=== PATIENT | male | born 1980 | race Two or more races ===

== ENCOUNTER 2024-09-13 09:52 | Day surgery (SDC) | payer OTHER, SELFPAY ==
--- OUTSIDE RECORDS SUMMARY | 2024-09-09 13:10 | XMS_ITS ---
Author Name [facility] [place] [facility] [place] Address [address] [place] [address] Care Team Providers Care Gluer And Slicer Hand Name Role Phone SHIRLEY VILLA Primary Care Provider Unavailabl neida Insurance Providers: All historical and current Section Date Range: From patient's date of to the date document was created. This section includes the names of all active insurance providers for the patient. Insurance Provider Type of Coverage Plan Name Start of Policy Coverage End of Policy Coverage Group Number Member ID Insurance Provider's Telephone Number Policy Pagan's Name Patient's Relationship to Policy Pagan Selected Encounter This section includes the information on record at [place] for the Encounter. Date/Time Encounter Type Encounter Description Reason Provider Source Mar 08, 2024 10:30 AM PSYTX W PT W E/M 30 [facility] - IND ICD-10-CM F90.9 Attention-deficit hyperactivity disorder, unspecified type SAKINA MORFIN E Encounter Template Text not used by [place] Assessments - Encounter Diagnoses This section includes the primary and secondary diagnoses documented for the Encounter. Date/Time Primary/Secondary Diagnosis Diagnosis Name Provider Source Mar 08, 2024 09:29 AM PRIMARY Attention-deficit hyperactivity disorder, unspecified type SAKINA MORFIN [place] [facility] [place] [facility] Mar 08, 2024 09:29 AM SECONDARY Post-traumatic stress disorder, chronic [place]AKINA [place]ORFIN [place] [facility] Plan of Treatment: Future Appointments (+ 6 months) and Future Tests (+/- 45 days) The Plan of Treatment section includes future care activities for the patient [facility] [place] [facility] This section includes future appointments and future orders which are active, pending or scheduled. Future Appointments This section includes appointments that were scheduled to occur 6 months from the date of the Encounter, up to a maximum of 20 appointments. The data comes from all [facility]. Appointment Date/Time Appointment Type Appointme nt Facility Name Mar 15, 2024 10:30 AM [facility] [place] [facility] Apr 07, 2024 11:30 AM [facility] [place] [facility] May 05, 2024 01:30 PM [facility] [place] [facility] May 31, 2024 09:30 AM [facility] [place] [facility] Jun 03, 2024 10:40 AM [facility] Jun 14, 2024 03:00 PM AMBULATORY - RE[facility]AB MEDICIN [facility] [place] [facility] Jun 24, 2024 09:00 AM AMBULATORY [facility] [place] [facility] Aug 05, 2024 09:00 AM AMBULATORY [facility] [place] [facility] Aug 11, 2024 01:00 PM AMBULATORY - [facility] [place] [facility] Aug 16, 2024 09:00 AM [facility] Active, Pending, and Scheduled Orders This section includes a listing of several types of active, pending, and scheduled orders, including clinic medications orders, diagnostic test orders, procedure orders and consult orders; where the start date of the order is 45 days before the date of the Encounter or 45 days after the date of theEncounter. The data comes from all [facility]. Test Date/Time Test Type Test Details Facility Name Apr 07, 2024 12:00 AM Laboratory - Chemistry Order ALCOHOL, ETHYL URINE PANEL URINE (DRUG) SP [facility] Apr 07, 2024 12:00 AM Laboratory - Chemistry Order AMPHETAMINES SCREEN PANEL URINE (DRUG) [facility] [place] [facility] Apr 07, 2024 12:00 AM Laboratory - Chemistry Order BENZODIAZEPINES SCREEN PANEL URINE (DRUG) SP [facility] [place] [facility] Apr 07, 2024 12:00 AM Laboratory - Chemistry Order CANNABINOIDS SCREEN PANEL URINE (DRUG) SP [facility] [place] [facility] Apr 07, 2024 12:00 AM Laboratory - Chemistry Order COCAINE SCREEN PANEL URINE (DRUG) SP [facility] [place] [facility] Apr 07, 2024 12:00 AM Laboratory - Chemistry Order FENTANYL SCREEN PANEL URINE (DRUG) SP [facility] [place] [facility] Apr 07, 2024 12:00 AM Laboratory - Chemistry Order OPIATES SCREEN PANEL URINE (DRUG) [facility] [place] [facility] Social History: Smoking Status (Most current) and Tobacco Use (All prior to encounter date) This section includes the most current, and the historical, smoking and tobacco- related health factors from the [place] facility where the Encounter took place. Current Smoking Status This section includes the most current smoking, or tobacco-related health factor, from the [place] facility where the Encounter took place. Date/Time Current Smoking Status Comment Alf ity Jun 11, 2023 03:00 PM VA-TOBACCO NEVER USED [facility] [place] [facility] Tobacco Use History This section includes a history of the smoking, or tobacco-related health factors, that were collected on or before the date of the Encounter. The data comes from the [place] facility where the Encounter took place. Date/Time Smoking Status/Tobacco Use Comment F acility Jul 11, 2022 11:30 AM VA-TOBACCO NEVER USED [facility] [place] [facility] Jul 26, 2021 08:30 AM VA-TOBACCO NEVER USED [facility] [place] [facility] Aug 22, 2020 08:30 AM VA-TOBACCO NEVER USED [facility] [place] [facility] Sep 01, 2019 02:50 PM VA-TOBACCO NEVER USED [facility] [place] [facility] Sep 04, 2018 12:13 PM VA-TOBACCO NEVER USED [facility] [place] [facility] Sep 11, 2017 09:16 AM LIFETIME NON-TOBACCO USER [place] [facility] [place] [facility] Jul 26, 2016 08:58 AM LIFETIME NON-TOBACCO USER [place] [facility] [place] [facility] Jul 26, 2015 02:07 PM LIFETIME NON-TOBACCO USER [place] [facility] [place] [facility] Jun 15, 2014 02:12 PM LIFETIME NON-TOBACCO USER [place] [facility] [place] [facility] Encounter Notes: All associated encounter notes This section contains the clinical notes associated to the Encounter. Date/Time Encounter Note(s) Provider Source Mar 08, 2024 09:31 AM CLINICAL NURSE SPECIALIST NOTE: LOCAL TITLE: CLINICAL NURSE SPECIALIST/MENTAL HEALTH STANDARD TITLE: CLINICAL NURSE SPECIALIST NOTE DATE OF NOTE: MAR 08, 2024@09:31 ENTRY DATE: MAR 08, 2024@09:31:30 AUTHOR: JANNA MORFIN EXP COSIGNER: URGENCY: STATUS: COMPLETED KORINA JONES, a 44year old WHITE MALE was seen by video today for a scheduled follow-up at [facility] for Dx: PTSD, ADHD. is well known to teletypewriter operator by sight and two identifiers used and full SSN. Visit lasted 30 minutes. He is well known to teletypewriter operator by sight. Active problems - Computerized Problem List is the source for the followin. Pain in left knee 2. Low back pain 3. Tinnitus 4. Alcohol dependence 5. Erectile dysfunction 6. Posttraumatic stress disorder 7. Attention deficit without hyperactivity CHART REVIEW: Paty is a patient of Dr. Alessio DAS 8 and is followed by the respiratory department for sleep apnea. Had medical appt in August got more help with his medical issues from medical rehab. He is still working with the sleep apnea machine to sleep better, also has nasal spray to help him sleep which is working. Sleep apnea remains troublesome at times. He is going to get a mouthguard to try instead. PAST PSYCHIATRIC HISTORY: long history of PTSD, see previous notes from [employer] and previous providers. Paty had outside provider for a long time, has now consolidated his care to all [place]. Paty did some IREST in the past and enjoyed, he was referred for mindfulness treatment but stated there was miscommunication and he was not able to join the group. He has since declined more therapy. Continues using his own [employer] videos and is using music as his therapy. He does this daily and it is a routine that helps him cope. PAST MEDICATION TRIALS: [place] was on amphetamines from outside physician for many years for ADHD. We have consolidated care to [facility]. He continues agreeable to antidepressant and prazosin for nightmares. Doing well with no complaint of side effects or other med issues. STRENGTHS: articulate and takes interest in his health : [employer] FROM Apr TO Mar SUBJECTIVE: The [place] was seen today for routine follow up; visit lasted for 30 minutes. reports continuing to do well with amphetamines, no side effects endorsed, we had to increase his dose a bit several months ago due to the change in brands by pharmacy, but we reverted back to [place] pharmacy due to his having trouble getting meds locally also. We increased his dose slightly and he has done well with the increase. Other meds continue to work well with no side effects per [place]. Mr. Jones states he continues dealing with some PTSD symptoms but still declines any new therapy or meds. He continues using his own mindfulness techniques that he aquired online and in IREST which was his favored type of therapy. 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 CPAP and nasal spray continue somewhat helpful with night breathing, however CPAP is very difficult, and he often cannot use it. Respiratory has been actively working with him, but this continues problematic. He still gets only about 4 hours sleep, due to nightmares that wake him up. This is an ongoing and chronic issue and he prefers to continue same meds,and still does not want to add any more medications to address these symptoms. He has accomodated to the sleep pattern and can function well in spite of decreased hours of sleep. We again checked in to see if he wanted new meds or therapy options and he said he is stable and feels able to meet daily demands. Continues taking care of family. 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 States family are all doing well. CURRENT SYMPTOMS CAUSING CONCERN TO : PTSD and medical issues CURRENT STRESSORS/LIFE CIRCUMSTANCES: less stressors, feels better with some use of MM. REVIEW OF SYSTEMS: SLEEP: some significant impairment at times, nightmares keep him up, uses cpap which is sometimes difficult for him to use. Respiratory has been monitoring and trying to help. He is going to try a mouthguard when available and has upcoming appts. MOOD: minimal depressed mood reported, using his coping tools and he feels stable. PTSD: Nightmares, flashbacks, intrusive memories. avoidance: gets those at times , med helps ANXIETY: 5-6 average ANGER/IRRITABILITY/AGGRESSI ON: minimal now, able to cope well SUICIDAL MOOD/IDEAS: none SUBSTANCE USE: use of alcohol or illegal/non-prescribed drugs: continues using minimal alcohol one glass of wine a day, four or five times a week TOBACCO:non smoker. ALIVIA/HYPOMANIA: None. PSYCHOTIC FEATURES: None. ALCOHOL OR DRUG USE: >4x/wk maintains at same level and has not increased. OVERALL CHANGE SINCE LAST VISIT: he reports coping well, stable DEGREE OF IMPAIRMENT OF DAILY FUNCTION: minimal impairment in spite of health issues, he anisha well. MEDICATION RECONCILIATION: pt on no new/ non-VA prescribed medications or herbal treatments. He went to see a medical marijuana specialist and gave him gummies, which he feels are helpful to him. Current meds: Active and Recently Outpatient Medications (excluding Supplies): Active Outpatient Medications Status 1) BUPROPION HCL 100MG TAB TAKE ONE AND ONE-HALF TABLETS ACTIVE BY MOUTH TWICE DAILY FOR DEPRESSION (TAKE SECOND DOSE BY 5PM) 2) DEXTROAMPHETAMINE SO4 10MG SA CAP TAKE TWO CAPSULES ACTIVE BY MOUTH ONCE DAILY FOR 30 DAYS, AND TAKE ONE CAPSULE ONCE DAILY FOR 30 DAYS DIRECTED IN THE AFTERNOON FOR ADHD AND FOCUS TAKE 2 CAPSULES IN THE MORNING AND 1 CAPSULE IN THE AFTERNOON (NEXT FILL 10/17/20) 3) PRAZOSIN HCL 2MG CAP TAKE ONE CAPSULE BY MOUTH AT ACTIVE BEDTIME FOR NIGHTMARES; WATCH FOR LIGHT HEADEDNESS WHEN GETTING UP 4) SILDENAFIL CITRATE 50MG TAB TAKE ONE TABLET BY MOUTH ACTIVE ONCE A WEEK TAKE 1 HOUR PRIOR TO SEXUAL ACTIVITY DO NOT TAKE WITHIN 12 HOURS OF TAKING PRAZOSIN MEDICATION ADHERENCE: takes medications most days MEDICATION SIDE EFFECTS: none OBJECTIVE: recent labs:LAB RESULTS LAST 1440 HRS - NONE FOUND Weight: 204.4 lb [92.9 kg] (05/25/2019 15:27) BMI: 31.1 MENTAL STATUS EXAM: Orientation and Consciousness: Alert and fully oriented. Appearance and Behavior: Pleasant. Cooperative. Seen via [facility] and then [place] to pickling tank operator script. Has good hygiene and grooming. Is presenting from outside, walking in the sun and states he is enjoying the weather and feeling positive. States he is working today and is in uniform. Presents calm and focused today. Eye Contact: Good. Speech: Normal rate and volume. Mood/Affect: is in a calm mood today, able to relate easily and answer all questions. Smiles and interacts well with teletypewriter operator. Thought Production/Content: Logical, sequential & relevant to discussion. Perceptual Disturbances: None. Attention, concentration and memory based on answers to session questions: Good. Insight/Judgment: Both good. Ability to Provide informed consent: Yes. ASSESSMENT:44 year old WHITE MALE, presents today outside his office walking around in the grass, appearing in good contact, relevant and comfortable. Wears weather appropriate outfit of bland uniform shirt and bland slacks. He is smiling and interacting well. Vet is well known to teletypewriter operator by sight and visit lasted 30 minutes. Paty endorses no med side effects of meds are present and he wants to continue same meds, he states understanding of the risks and benefits of all meds and wants to continue. Since [place] meds were not working as well, we had to increase to a high dose recently, but he denies side effects, chest pain or any other issue with the current amphetamines. Patient ed is reinforced and he states understanding and agreement. He is reminded not to share or give any of his meds to others and to store safely and away from children's access. No reported no drug use and continues with four or five isadora per week, ongoing, which is his usual alcohol amount. Continues to state that his amount of alcohol is not an issue for him, he feels better when he drinks less, per his report. Paty endorses feeling stable on antidepressant and current sleep med, plus amphetamine. He continues to decline conventional therapy for MH. Is reminded of resources available to him both at [place] and at [facility]. Also reminded of [facility] if any urgent needs arise, and he states understanding. No new medical or mental health concerns today. He had a PACT appointment and met his new PCP. States things overall are stable, medical issues are receiving help and he has family supports in place. Paty now appears (x)stable psychiatrically ()unstable psychiatrically i. Severity of Illness: ()none (x)mild ()moderately ill ()severely ill ()very severely ill ii. Global Improvement: ()very much ()much (x)min ()none ()min worse ()much worse ()very much worse iii. Current risk of harm: ()none (x)low ()mod ()high TREATMENT PLAN/ DISCUSSION/ RATIONALE: 1. doing well on current medications, no side effects or other issues endorsed. Wants to continue same regime. All meds from this [facility] currently. Refills by [facility] now and he is doing well with that modality no. He has learned how to use the esperanza and continues using that. 3. Reminded of [facility] if urgent needs, and Crisis Line, new number for [place]'s emergency help. Also reminded to use ER or if emergency. He agrees. 4. Offered therapy if he needs it, continues to prefer apps online and he has one he continues to use daily for mindfulness. Continues doing online yoga and meditation. 5. Sleep is still an issue, but he feels he is getting enough sleep to engage in daily activities and work. Continues pursuing options to get better results for his sleep apnea. He continues using nasal spray with some effect to help his night breathing. He will be investigating a mouth guard and has appts already. 7. Nightmares still bother him at times, but he feels he is doing well given his PTSD, he has been offered nightmare therapy, so far did not want to try this. 8. [place] continues doing light exercise, pain has lessened and he can do more. He likes to exercise and stay as fit as possible. 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 9. Labs reviewed briefly, he is aware of the results and all are WNL.. 10. Vet is aware of his upcoming dental appts and plans to attend. 11. Problem List was reviewed today. Next Visit: in one month. However, I asked the patient to call me or to come to return for sooner appointment if the patient does not like the effect of psychiatric medication or if has side effects with psychiatric medication. LAB REVIEW: ()none/not applicable (x)discussed lab results, no change in plan, last UDS and screening labs were fine aside from very small spike in cholesterol, he is aware. ()discussed lab results, in particular: PATIENT EDUCATION/ INFORMED CONSENT:()not required, no new changes (x)Discussion was held with patient as to risks/ benefits/ hazards of this regimen, as well as alternatives available. The patient appeared able to understand this information and accepted the risks involved. CRISIS PLAN: The patient denied suicidal and violent ideation, but the [facility] information and number were given to patient. The patient also understands to call 911 or to go to ER in the event of an emergency. Medication Reconciliation: Outpatient: Has the patient been taking medications as documented in the EMLR? YES: The patient has been taking medications as documented in the EMLR. Essential Medication List for Review used to complete this medication reconciliation. INCLUDED IN THIS LIST: Alphabetical list of active outpatient prescriptions dispensed from this [facility] (local) and dispensed from another [place] or DoD facility (remote) as well as inpatient orders (local, pending and active), local clinic medications, locally documented non-VA medications, and local prescriptions that have or been discontinued in the past 90 days. - All changes in medications, including all non-VA/Herbal/OTC medications were entered into CPRS. - If there were any medications the patient should no longer take, they were discontinued. - The patient/caregiver was instructed to update this list, discard old lists, and take this list to the next appointment, whether with a VA or non-VA provider. Sexual Orientation: The patient thinks of their sexual orientation as: Straight or Heterosexual /kwadwo/ JANNA MORFIN RN,MSN,PSYCH N.P., STAFF CLINICAL NURSE SPECIALIST Signed: 03/08/2024 16:12 JANNA MORFIN [facility] Mar 08, 2024 09:28 AM ACCOUNTING OF DISCLOSURES NOTE: LOCAL TITLE: STATE PRESCRIPTION DRUG MONITORING PROGRAM STANDARD TITLE: ACCOUNTING OF DISCLOSURES NOTE DATE OF NOTE: MAR 08, 2024@09:28:03 ENTRY DATE: MAR 08, 2024@09:28:03 AUTHOR: JANNA MORFIN EXP COSIGNER: URGENCY: STATUS: COMPLETED This PDMP query was submitted by Janna Morfin [facility]. The clinical justification for this PDMP query is to review controlled substances prescribed outside of the [facility], and any additional information that may become available, as an important component of standard clinical care, and in accordance with [facility] policy. Patient information was shared with the PDMP [place]. Prescription(s) filled outside the VA in the last 90 days are noted. However, they do not raise significant safety concerns and do not influence the treatment plan at this time. uses testosterone from the community ongoing /kwadwo/ JANNA MORFIN RN,MSN,PSYCH N.P., STAFF CLINICAL NURSE SPECIALIST Signed: 03/08/2024 09:29 JANNA MORFIN [facility]
--- OUTSIDE RECORDS SUMMARY | 2024-09-09 13:10 | XMS_ITS ---
Author Name [facility] Organization [facility] Address [address] [place] [address] Care Team Providers Care System Safety Engineer Name Role Phone SHIRLEY VILLA Primary Care [...] section includes the information on record at [place] for the Encounter. Date/Time Encounter Type Encounter Description Reason Provider Source Nov 06, 2023 10:30 AM PSYTX W PT W E/M 30 [facility] - IND ICD-10-CM F43.12 Post-traumatic stress disorder, chronic NAVJOTRENETTAEL A Stella IHE Encounter Template Text not used by [place] Assessments - Encounter Diagnoses This section includes the primary and secondary diagnoses documented for the Encounter. Date/Time Primary/Secondary Diagnosis Diagnosis Name Provider Source Nov 06, 2023 12:13 PM PRIMARY Post-traumatic stress disorder, chronic NAVJOT,SAKINA LA B [facility] [place] [facility] Nov 06, 2023 12:13 PM SECONDARY Attention-deficit hyperactivity disorder, unspecified type NAVJOT,SAKINA LA B [facility] [place] [facility] Plan of Treatment: Future Appointments (+ 6 months) and Future Tests (+/- 45 days) The Plan of Treatment section includes future care activities for the [facility] This section includes future appointments and future orders which are active, pending or scheduled. Future Appointments This section includes appointments that were scheduled to occur 6 months from the date of the Encounter, up to a maximum of 20 appointments. The data comes from all [facility]. Appointment Date/Time Appointment Type Appointme nt Facility Name Dec 03, 2023 10:30 AM AMBULATORY - PSYCHIATRY [facility] [place] [facility] Dec 10, 2023 11:00 AM AMBULATORY - PSYCHIATRY [facility] [place] [facility] Dec 24, 2023 03:00 PM AMBULATORY - MEDICINE PR [facility] [place] [facility] Dec 31, 2023 01:00 PM AMBULATORY - PSYCHIATRY [facility] [place] [facility] Feb 09, 2024 10:30 AM AMBULATORY - PSYCHIATRY [facility] [place] [facility] Mar 08, 2024 10:30 AM AMBULATORY - PSYCHIATRY [facility] [place] [facility] Mar 15, 2024 10:30 AM AMBULATORY - NONE [facility] [place] [facility] Apr 07, 2024 11:30 AM AMBULATORY - PSYCHIATRY [facility] [place] [facility] May 05, 2024 01:30 PM [facility] Active, Pending, and Scheduled Orders This section includes a listing of several types of active, pending, and scheduled orders, including clinic medications orders, diagnostic test orders, procedure orders and consult orders; where the start date of the order is 45 days before the date of the Encounter or 45 days after the date of theEncounter. The data comes from all [facility]. Test Date/Time Test Type Test Details Facility Name Dec 16, 2023 07:00 AM Laboratory - Chemistry Order [facility] [place] [facility] Dec 16, 2023 07:00 AM Laboratory - Chemistry Order [facility]ENTANYL [facility] Dec 16, 2023 07:00 AM Laboratory - Chemistry Order OXYCODONE SCREEN PANEL URINE (DRUG) [facility] Dec 16, 2023 07:00 AM Laboratory - Chemistry Order OPIATES SCREEN PANEL URINE (DRUG) [facility] Dec 16, 2023 07:00 AM Laboratory - Chemistry Order ALCOHOL, ETHYL URINE PANEL URINE (DRUG) SP [facility] Dec 16, 2023 07:00 AM Laboratory - Chemistry Order AMPHETAMINES SCREEN PANEL URINE (DRUG) [facility] Dec 16, 2023 07:00 AM Laboratory - Chemistry Order BENZODIAZEPINES SCREEN PANEL URINE (DRUG) [facility] Dec 16, 2023 07:00 AM Laboratory - Chemistry Order CANNABINOIDS SCREEN PANEL URINE (DRUG) [facility] Lab Results: +/- 30 days of the encounter This section includes the Chemistry and Hematology Lab Results on record with [place] for the patient. Radiology Reports and Pathology Reports are provided separately, in subsequent sections. Lab Results This section contains the Chemistry/Hematology Results that were resulted 30 days before or 30 daysafter the date of the Encounter. Date/Time Source Result Type Result - Unit Interpretation Reference Range Specimen Type Comment October 09, 2023 10:38 AM [facility] ALCOHOL, ETHYL URINE PANEL URINE Specimen Typ e: URINE Comment: Urine with Cr <5 is diluted or substituted. Cr between 5 and 20 is very dilute. Urine with SG of 1.001 or less is diluted or substituted. SG of 1.003 or less is very dilute. Urine with a pH <3 or >11 has been adulterated and is unsuitable for testing by our current method. Urine with pH between 3 and 4 OR 10 and 11 may have been adulterated. Ordering Provider: JANNA MORFIN Report Released Date/Time: October 09, 2023 10:16 AM Reporting Lab: [address] [address] Performing Lab: [address] [address] ALCOHOL, ETHYL URINE NONE-DETECTED mg/dL NONE-DETECTED, cutoff = 10 mg/dL PH, SHARRON 7.0 [pH] 4-10 CREATININE, SHARRON 102.27 mg/dL >20 SP.GRAVITY, SHARRON 1.020 1.003-1.020 October 09, 2023 10:38 AM [facility] AMPHETAMINES SCREEN PANEL URINE Specimen Type : URINE Comment: Urine with Cr <5 is diluted or substituted. Cr between 5 and 20 is very dilute. Urine with SG of 1.001 or less is diluted or substituted. SG of 1.003 or less is very dilute. Urine with a pH <3 or >11 has been adulterated and is unsuitable for testing by our current method. Urine with pH between 3 and 4 OR 10 and 11 may have been adulterated. Ordering Provider: JANNA MORFIN Report Released Date/Time: October 09, 2023 10:16 AM Reporting Lab: [address] [address] Performing Lab: [address] [address] AMPHETAMINES SCREEN NONE-DETECTED None-D etected, Cutoff = 1000 ng/mL PH, SHARRON 7.0 [pH] 4-10 CREATININE, SHARRON 102.27 mg/dL >20 SP.GRAVITY, SHARRON 1.020 1.003-1.020 October 09, 2023 10:38 AM [facility] CANNABINOIDS SCREEN PANEL URINE Specimen Type : URINE Comment: Urine with Cr <5 is diluted or substituted. Cr between 5 and 20 is very dilute. Urine with SG of 1.001 or less is diluted or substituted. SG of 1.003 or less is very dilute. Urine with a pH <3 or >11 has been adulterated and is unsuitable for testing by our current method. Urine with pH between 3 and 4 OR 10 and 11 may have been adulterated. Ordering Provider: JANNA MORFIN Report Released Date/Time: October 09, 2023 10:16 AM Reporting Lab: [address] [address] Performing Lab: [address] [address] CANNABINOIDS SCREEN NONE-DETECTED None-D etected,Cutoff = 50 ng/mL PH, SHARRON 7.0 [pH] 4-10 CREATININE, SHARRON 102.27 mg/dL >20 SP.GRAVITY, SHARRON 1.020 1.003-1.020 October 09, 2023 10:38 AM [facility] FENTANYL SCREEN PANEL URINE Specimen Type: UR INE Comment: Urine with Cr <5 is diluted or substituted. Cr between 5 and 20 is very dilute. Urine with SG of 1.001 or less is diluted or substituted. SG of 1.003 or less is very dilute. Urine with a pH <3 or >11 has been adulterated and is unsuitable for testing by our current method. Urine with pH between 3 and 4 OR 10 and 11 may have been adulterated. FENTANYL CONFIRMATION NOT SENT BY LAB. Ordering Provider: JANNA MORFIN Report Released Date/Time: October 09, 2023 10:16 AM Reporting Lab: [address] [address] Performing Lab: [address] [address] FENTANYL SCREEN NONE-DETECTED ng/mL Nega tive: Cutoff = 1.00 ng/mL PH, SHARRON 7.0 [pH] 4-10 CREATININE, SHARRON 102.07 mg/dL >20 SP.GRAVITY, SHARRON 1.020 1.003-1.020 October 09, 2023 10:38 AM [facility] BENZODIAZEPINES SCREEN PANEL URINE Specimen T ype: URINE Comment: Urine with Cr <5 is diluted or substituted. Cr between 5 and 20 is very dilute. Urine with SG of 1.001 or less is diluted or substituted. SG of 1.003 or less is very dilute. Urine with a pH <3 or >11 has been adulterated and is unsuitable for testing by our current method. Urine with pH between 3 and 4 OR 10 and 11 may have been adulterated. Ordering Provider: JANNA MORFIN Report Released Date/Time: October 09, 2023 10:16 AM Reporting Lab: [address] [address] Performing Lab: [address] [address] BENZODIAZEPINES SCREEN NONE-DETECTED Non e-Detected, Cutoff = 200 ng/mL PH, SHARRON 7.0 [pH] 4-10 CREATININE, SHARRON 102.27 mg/dL >20 SP.GRAVITY, SHARRON 1.020 1.003-1.020 October 09, 2023 10:38 AM [facility] COCAINE SCREEN PANEL URINE Specimen Type: URI NE Comment: Urine with Cr <5 is diluted or substituted. Cr between 5 and 20 is very dilute. Urine with SG of 1.001 or less is diluted or substituted. SG of 1.003 or less is very dilute. Urine with a pH <3 or >11 has been adulterated and is unsuitable for testing by our current method. Urine with pH between 3 and 4 OR 10 and 11 may have been adulterated. Ordering Provider: JANNA MORFIN Report Released Date/Time: October 09, 2023 10:16 AM Reporting Lab: [address] [address] Performing Lab: [address] [address] COCAINE SCREEN NONE-DETECTED None-Detect ed,Cutoff = 300 ng/mL PH, SHARRON 7.0 [pH] 4-10 CREATININE, SHARRON 102.27 mg/dL >20 SP.GRAVITY, SHARRON 1.020 1.003-1.020 October 09, 2023 10:38 AM [facility] OPIATES SCREEN PANEL URINE Specimen Type: URI NE Comment: Urine with Cr <5 is diluted or substituted. Cr between 5 and 20 is very dilute. Urine with SG of 1.001 or less is diluted or substituted. SG of 1.003 or less is very dilute. Urine with a pH <3 or >11 has been adulterated and is unsuitable for testing by our current method. Urine with pH between 3 and 4 OR 10 and 11 may have been adulterated. Ordering Provider: JANNA MORFIN Report Released Date/Time: October 09, 2023 10:16 AM Reporting Lab: [address] [address] Performing Lab: [address] [address] OPIATES SCREEN NONE-DETECTED None-Detect ed, Cutoff = 300 ng/mL PH, SHARRON 7.0 [pH] 4-10 CREATININE, SHARRON 102.27 mg/dL >20 SP.GRAVITY, SHARRON 1.020 1.003-1.020 Social History: Smoking Status (Most current) and Tobacco Use (All prior to encounter date) This section includes the most current, and the historical, smoking and tobacco- related health factors from the [place] facility where the Encounter took place. Current Smoking Status This section includes the most current smoking, or tobacco-related health factor, from the [place] facility where the Encounter took place. Date/Time Current Smoking Status Comment Facil ity Jun 11, 2023 03:00 PM VA-TOBACCO NEVER USED [place] [facility] [place] [facility] Tobacco Use History This section includes a history of the smoking, or tobacco-related health factors, that were collected on or before the date of the Encounter. The data comes from the [place] facility where the Encounter took place. Date/Time Smoking Status/Tobacco Use Comment F acility Jul 11, 2022 11:30 AM VA-TOBACCO NEVER USED [facility] [place] [facility] Jul 26, 2021 08:30 AM VA-TOBACCO NEVER USED [facility] [place] [facility] Aug 22, 2020 08:30 AM VA-TOBACCO NEVER USED [facility] [place] [facility] Sep 01, 2019 02:50 PM VA-TOBACCO NEVER USED [facility] [place] [facility] Sep 04, 2018 12:13 PM VA-TOBACCO NEVER USED [facility] [place] [facility] Sep 11, 2017 09:16 AM LIFETIME NON-TOBACCO USER [facility] [place] [facility] Jul 26, 2016 08:58 AM LIFETIME NON-TOBACCO USER [facility] [place] [facility] Jul 26, 2015 02:07 PM LIFETIME NON-TOBACCO USER [facility] [place] [facility] Jun 15, 2014 02:12 PM LIFETIME NON-TOBACCO USER [facility] [place] [facility] Encounter Notes: All associated encounter notes This section contains the clinical notes associated to the Encounter. Date/Time Encounter Note(s) Provider Source Nov 06, 2023 11:46 AM CLINICAL NURSE SPECIALIST NOTE: LOCAL TITLE: CLINICAL NURSE SPECIALIST/MENTAL HEALTH STANDARD TITLE: CLINICAL NURSE SPECIALIST NOTE DATE OF NOTE: NOV 06, 2023@11:46 ENTRY DATE: NOV 06, 2023@11:46:31 AUTHOR: JANNA MORFIN EXP COSIGNER: URGENCY: STATUS: COMPLETED KORINA JONES, a 43year old WHITE MALE was seen by video today for a scheduled follow[place] [facility] [place]x: PTSD, ADHD. Paty is well known to technical writer and two identifiers used and full SSN. Visit lasted 30 minutes. He is well known to technical writer by sight. Active problems - Computerized Problem [...] history of PTSD, see previous notes from [employer] and previous providers. Paty had outside provider for a long time, has now consolidated his care to all [place]. Paty did some IREST in the past and enjoyed, he was referred for mindfulness treatment but stated there was miscommunication and he was not able to join the group. He has since declined more therapy. Continues using his own [employer] videos and is using music as his therapy. He does this daily and it is a routine that helps him cope. PAST MEDICATION TRIALS: Paty was on amphetamines from outside physician for many years for ADHD. We have consolidated care to [facility]. He continues agreeable to antidepressant and prazosin for nightmares. Doing well with no complaint of side effects or other med issues. STRENGTHS: articulate and takes interest in his health : [employer] FROM Apr TO Mar SUBJECTIVE: The [place] was seen today for routine follow up; visit lasted for 30 minutes. [place] reports continuing to do well with amphetamines, no side effects, we had to increase his dose a bit several months ago due to the change in brands by pharmacy, but we reverted back to [place] pharmacy due to his having trouble getting meds locally at the pharmacy as well. We had been providing written prescriptions which he was filling at [facility]. This had no longer been working well, so we returned scripts to [place] at last appt. Other meds continue to work well with no side effects cited. states he continues dealing with some PTSD symptoms but still declines any new therapy or meds. He continues using some mindfulness techniques that he learned online and in IREST. Continues doing daily exercise which helps him stay focused as well. CPAP and nasal spray continue somewhat helpful with night breathing, however CPAP is so difficult, he often cannot use it. Respiratory has been actively working with him, with slight improvement. He still gets only about 4 hours sleep, due to nightmares that wake him up. This is a chronic issue and he prefers to continue same meds,and still does not want to add any more medications to address these symptoms. He has accomodated to the sleep pattern and can function well in spite of low hours of sleep. We again checked in to see if he wanted new meds or therapy options and he said he is doing well and feels able to meet daily demands. CURRENT SYMPTOMS CAUSING CONCERN TO : PTSD and medical issues CURRENT STRESSORS/LIFE CIRCUMSTANCES: less stressors, feels better with some use of MM. REVIEW OF SYSTEMS: SLEEP: some significant impairment at times, nightmares keep him up, uses cpap which is sometimes not working well. He has tried adjusting settings and is not able to get the machine to work well for him.Respiratory has also been monitoring and trying to help. He is currently waiting to see if a mouthgard will work better for him. MOOD: minimal depressed mood reported, using his coping tools and he feels stable. PTSD: Nightmares, flashbacks, intrusive memories. avoidance: gets those at times , med helps ANXIETY: 5-6 average ANGER/IRRITABILITY/AGGRESSI ON: sometimes still has, minimal now, able to cope well now. SUICIDAL MOOD/IDEAS: none SUBSTANCE USE: use of alcohol or illegal/non-prescribed drugs: continues using minimal alcohol one glass of wine a day, four or five times a week TOBACCO:non smoker. ALIVIA/HYPOMANIA: None. PSYCHOTIC FEATURES: None. ALCOHOL OR DRUG USE: >4x/wk maintains at same level and has not increased. OVERALL CHANGE SINCE LAST VISIT: he reports coping well, stable DEGREE OF IMPAIRMENT OF DAILY FUNCTION: better with the slight increase in dose of amphetamine, and we will try VA brand again to see if he tolerates and benefits from it. MEDICATION RECONCILIATION: pt on no new/ non-VA prescribed medications or herbal treatments. He went to see a medical marijuana specialist and gave him gummies, which he feels are helpful to him. They are working on a regime that will complement his mental health meds and he is feeling supported. Current meds: Active and Recently Outpatient Medications [...] Appearance and Behavior: Pleasant. Cooperative. Seen via [facility] and then he plans to come to [facility] later, to cook pickled meat script. Has good hygiene and grooming. Is presenting from his auto and is calm and focused today. Eye Contact: Good. Speech: Normal rate and volume. Mood/Affect: [place] is in a calm mood today, able to relate easily and answer all questions. Smiles and interacts well with technical writer. Thought Production/Content: Logical, sequential & relevant to discussion. Perceptual Disturbances: None. Attention, concentration and memory based on answers to session questions: Good. Insight/Judgment: Both good. Ability to Provide informed consent: Yes. ASSESSMENT:43 year old WHITE MALE, presents today appearing calm and focused, in good contact. Wears warm weather appropriate outfit of khaki slacks and shirt with cap and is smiling and interacting well. Vet is well known to technical writer by sight and visit lasted 30 minutes. endorses no med side effects are present, he states understanding of the risks and benefits of all meds and wants to continue. He stated that last month the meds from [facility] did seem to work better. we are at a high dose now, but he denies side effects, chest pain or any other issue with the current amphetamines. He is reminded not to share or give any of his meds to others and to store safely and away from children's access. No reported drug use and continues with four or five isadora per week, ongoing, which is his usual alcohol amount. Continues not to feel this amount of alcohol is an issue for him, he feels better when he drinks moderately, per his report. endorses feeling stable on antidepressant and current sleep med, plus amphetamine. He continues to decline conventional therapy for MH. Is reminded of resources available both at [place] and at [facility]. No new medical or mental health concerns today. things overall are going well, medical issues are receiving help and he has family supports in place. now appears (x)stable psychiatrically ()unstable psychiatrically i. [...] issues endorsed. Wants to continue same regime. Gets amphetamine outside now at [facility]. Other meds from this [facility]. Refills by [facility] now and doing well with that. 2. Has continued using [facility] for refills and other needs, he feels more comfortable with the modality now. 4. Reminded of [facility] if urgent needs, and Crisis Line, new number for [place]'s emergency help. Also reminded to use ER or UC if emergency. 5. Offered therapy if he needs it, continues to prefer apps online and he has one he uses daily for mindfulness. Continues doing online yoga and meditation. 6. Sleep is still an issue, he had a respiratory appt and is being followed by them to try and get better results for his sleep apnea. He continues using nasal spray with some effect to help his night breathing. He is waiting to try a mouthgard for his sleep apnea, since machine is not helping as much and he is not tolerating it well now. 7. Nightmares still bother him at times, but he feels he is doing well given his condition, he has been offered nightmare therapy, so far did not want to try this. 8. [place] continues doing light exercise, pain has lessened and he can do more. this is encouraging for him. 9. Labs are the ones from May,labs improved, also September UDS was fine. 10. Roberto had his PACT appt cancelled for November and he rescheduled for December with new PCP. 11. Problem List was reviewed today. Next [...] and screening labs were fine aside from slight spike in cholesterol, he is aware. ()discussed [...] this VA (local) and dispensed from another VA or [facility]D facility (remote) as well as [...] whether with a VA or non-VA provider. /kwadwo/ JANNA MORFIN, RN,MSN,PSYCH N.P., STAFF CLINICAL NURSE SPECIALIST Signed: 11/06/2023 12:13 JANNA MORFIN [facility] Nov 05, 2023 05:16 PM ACCOUNTING OF DISCLOSURES NOTE: LOCAL TITLE: STATE PRESCRIPTION DRUG MONITORING PROGRAM STANDARD TITLE: ACCOUNTING OF DISCLOSURES NOTE DATE OF NOTE: NOV 05, 2023@17:16:40 ENTRY DATE: NOV 05, 2023@17:16:40 AUTHOR: JANNA MORFIN EXP COSIGNER: URGENCY: STATUS: COMPLETED This PDMP query was submitted by Janna Morfin [facility]. The clinical justification for this PDMP query is to review controlled substances prescribed outside of the [place], and any additional information that may become available, as an important component of standard clinical care, and in accordance with [facility] policy. Patient information was shared with the PDMP [place]. Prescription(s) filled outside the VA in the last 90 days are noted. However, they do not raise significant safety concerns and do not influence the treatment plan at this time. Continues on testosterone in community /kwadwo/ JANNA MORFIN RN,MSN,PSYCH N.P., STAFF CLINICAL NURSE SPECIALIST Signed: 11/05/2023 17:16 JANNA MORFIN [facility]
--- OUTSIDE RECORDS SUMMARY | 2024-09-09 13:10 | XMS_ITS | Encounter Summary ---
Author Name [facility] [place] [facility] [place] [facility] [place] Address [address] [place] [address] Care Team Providers Care Dye Line Operator Name Role Phone SHIRLEY VILLA Primary Care [...] section includes the information on record at [place] for the Encounter. Date/Time Encounter Type Encounter Description Reason Provider Source Jun 14, 2024 03:00 PM HEARING AID [id number] [facility] AUDIOLOGY ICD-10-CM H90.3 Sensorineural hearing loss, bilateral CAMINITI,RAMIRO E IHE Encounter Template Text not used by [place] Assessments - Encounter Diagnoses This section includes the primary and secondary diagnoses documented for the Encounter. Date/Time Primary/Secondary Diagnosis Diagnosis Name Provider Source Jun 14, 2024 03:41 PM PRIMARY Sensorineural hearing loss, bilateral CAMINITI,RAMIRO E [facility] Jun 14, 2024 03:41 PM SECONDARY Tinnitus, bilateral CAMINITI,RAMIRO E [facility] Plan of Treatment: Future Appointments (+ 6 months) and Future Tests (+/- 45 days) The Plan of Treatment section includes future care activities for the patient from [facility] [place] [facility] This section includes future appointments and future orders which are active, pending or scheduled. Future Appointments This section includes appointments that were scheduled to occur 6 months from the date of the Encounter, up to a maximum of 20 appointments. The data comes from all [place] treatment facilities. Appointment Date/Time Appointment Type Appointme nt Facility Name Jun 24, 2024 09:00 AM AMBULATORY - [facility]AT[facility] [place] Aug 05, 2024 09:00 AM AMBULATORY - PS[facility]IATRY [facility] [place] [facility] Aug 11, 2024 01:00 PM AMBULATORY - REHAB MEDICIN E [facility] [place] [facility] Aug 16, 2024 09:00 AM AMBULATORY - REHAB MEDICIN E [facility] [place] [facility] Sep 13, 2024 10:30 AM AMBULATORY - NONE [place] [facility] [place] [facility] Social History: Smoking Status (Most current) and Tobacco Use (All prior to encounter date) This section includes the most current, and the historical, smoking and tobacco- related health factors from the [place] facility where the Encounter took place. Current Smoking Status This section includes the most current smoking, or tobacco-related health factor, from the [place] facility where the Encounter took place. Date/Time Current Smoking Status Comment Facil ity Jun 11, 2023 03:00 PM VA-TOBACCO NEVER USED [place] [facility] [place] [facility] Tobacco Use History This section includes a history of the smoking, or tobacco-related health factors, that were collected on or before the date of the Encounter. The data comes from the [place] facility where the Encounter took place. Date/Time Smoking Status/Tobacco Use Comment F acility Jul 11, 2022 11:30 AM VA-TOBACCO NEVER USED [facility] [place] [facility] Jul 26, 2021 08:30 AM VA-TOBACCO NEVER USED [facility] [place] [facility] Aug 22, 2020 08:30 AM VA-TOBACCO NEVER USED [facility] [place] [facility] Sep 01, 2019 02:50 PM VA-TOBACCO NEVER USED [facility] [place] [facility] Sep 04, 2018 12:13 PM VA-TOBACCO NEVER USED [facility] [place] [facility] Sep 11, 2017 09:16 AM LIFETIME NON-TOBACCO USER [facility] [place] [facility] Jul 26, 2016 08:58 AM LIFETIME NON-TOBACCO USER [facility] [place] [facility] Jul 26, 2015 02:07 PM LIFETIME NON-TOBACCO USER [facility] [place] [facility] Jun 15, 2014 02:12 PM LIFETIME NON-TOBACCO USER [facility] [place] [facility] Encounter Notes: All associated encounter notes This section contains the clinical notes associated to the Encounter. Date/Time Encounter Note(s) Provider Source Jul 29, 2024 08:41 AM ADDENDUM: LOCAL TITLE: Addendum STANDARD TITLE: ADDENDUM DATE OF NOTE: JUL 29, 2024@08:41:42 ENTRY DATE: JUL 29, 2024@08:41:43 AUTHOR: REYES JENNINGS EXP COSIGNER: URGENCY: STATUS: COMPLETED Hearing aids received and certified. Alerting [facility] to contact the to schedule a 60 min hearing aid fitting. RTC entered. Hearing aids placed in the black cabinet. /kwadwo/ REYES JENNINGS Audiology Health Calibrator Barometers Signed: 07/29/2024 08:42 Receipt Acknowledged By: 07/29/2024 09:22 /kwadwo/ LUIS SCHWARTZ ADVANCED WATER PIPE INSTALLER === --- Original Document --- 06/14/24 AUDIOLOGY CLINIC: [place] was seen 06-14-24 for a hearing evaluation. He reports worsening tinnitus and states that he has done a good amount of reading on the topic. He reports he has found his Airpod Pro 2s very useful for sound therapy. He requests custom earmolds from [employer], as they tend to fall out of his ears. He denies difficulty hearing conversation and also denies vertigo. denies past/current hearing aid use. Significant otologic history is reportedly unremarkable. 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 Medical history includes: Active problems - Computerized Problem List is the source for the followin. Depressive disorder 2. History of alcohol abuse 3. Exposure to potentially hazardous substance ([facility] [id number]) 4. Sleep apnea 5. Bilateral chronic pain of feet 6. Pain in left knee 7. Low back pain 8. Tinnitus 9. Erectile dysfunction (SNOMED CT 240802017) 10. Posttraumatic stress disorder 11. Attention deficit without hyperactivity Results are as follow: Otoscopy is WNL for both ears. Pure tone audiometric testing with headphones revealed normal hearing from 250-4000 Hz, sloping to a mild sensorineural hearing loss bilaterally. Word recognition scores were good with 96% correct for the right ear and 92% correct for the left ear for recorded speech presented at 65 dB HL (masked). Normal tympanograms were obtained bilaterally. Arturo was counseled on today's test results. Given normal hearing through the speech range, he is not considered a candidate for amplification. With his verbal consent, ear impressions were taken without incident. It was explained that the earmolds can be ordered from a vendorized company. The clinic will contact him when they arrive. /kwadwo/ Antonia BARRETT, [facility]-A STAFF AVIONICS SUPERVISOR Signed: 06/14/2024 16:39 06/25/2024 ADDENDUM STATUS: COMPLETED Ear impressions were sent to [employer], after a call was placed to the earmold department and the rep stated they could make the custom earmolds for Airpods. This broker associate then received correspondence from [employer] stating that due to the model (Airpod Pro 2) and the sensors that product has, the earmold cannot be fabricated. Two other earmold labs had the same response. On 06-25-24, it was determined that the best option is to proceed with hearing aid fitting. Arturo was called and binaural rechargeable RICs with custom earmolds were recommended. He is agreeable. He chose black for the color. Binaural rechargeable RICs were ordered from [facility] with custom [employer] earmolds. When they arrive, arturo should be scheduled for a next available fitting. /Antonia Herring, [facility]-A STAFF AVIONICS SUPERVISOR Signed: 06/25/2024 11:58 DICKREYES YANEZ [place] [facility] [place] [facility] Jun 14, 2024 11:50 AM AUDIOLOGY E & M NOTE: LOCAL TITLE: AUDIOLOGY CLINIC STANDARD TITLE: AUDIOLOGY E & M NOTE DATE OF NOTE: JUN 14, 2024@11:50 ENTRY DATE: JUN 14, 2024@11:50:13 AUTHOR: RAMIRO MASTERSON COSIGNER: URGENCY: STATUS: COMPLETED AUDIOLOGY CLINIC Has ADDEN[place] was seen 06-14-24 for a hearing evaluation. He reports worsening tinnitus and states that he has done a good amount of reading on the topic. He reports he has found his Airpod Pro 2s very useful for sound therapy. He requests custom earmolds from [employer], as they tend to fall out of his ears. He denies difficulty hearing conversation and also denies vertigo. denies past/current hearing aid use. Significant otologic history is reportedly unremarkable. 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 Medical history includes: Active problems - Computerized Problem List is the source for the followin. Depressive disorder 2. History of alcohol abuse 3. Exposure to potentially hazardous substance ([facility] [id number]) 4. Sleep apnea 5. Bilateral chronic pain of feet 6. Pain in left knee 7. Low back pain 8. Tinnitus 9. Erectile dysfunction (SNOMED CT 412809384) 10. Posttraumatic stress disorder 11. Attention deficit without hyperactivity Results are as follow: Otoscopy is WNL for both ears. Pure tone audiometric testing with headphones revealed normal hearing from 250-4000 Hz, sloping to a mild sensorineural hearing loss bilaterally. Word recognition scores were good with 96% correct for the right ear and 92% correct for the left ear for recorded speech presented at 65 dB HL (masked). Normal tympanograms were obtained bilaterally. [place] was counseled on today's test results. Given normal hearing through the speech range, he is not considered a candidate for amplification. With his verbal consent, ear impressions were taken without incident. It was explained that the earmolds can be ordered from a vendorized company. The clinic will contact him when they arrive. /Antonia Herring, [facility]-A STAFF AVIONICS SUPERVISOR Signed: 06/14/2024 16:39 06/25/2024 ADDENDUM STATUS: COMPLETED Ear impressions were sent to [employer], after a call was placed to the earmold department and the rep stated they could make the custom earmolds for Airpods. This broker associate then received correspondence from [employer] stating that due to the model (Airpod Pro 2) and the sensors that product has, the earmold cannot be fabricated. Two other earmold labs had the same response. On 06-25-24, it was determined that the best option is to proceed with hearing aid fitting. was called and binaural rechargeable RICs with custom earmolds were recommended. He is agreeable. He chose black for the color. Binaural rechargeable RICs were ordered from [employer] with custom [employer] earmolds. When they arrive, should be scheduled for a next available fitting. /Antonia Herring, [facility]-A STAFF AVIONICS SUPERVISOR Signed: 06/25/2024 11:58 07/29/2024 ADDENDUM STATUS: COMPLETED Hearing aids received and certified. [facility] the to schedule a 60 min hearing aid fitting. RTC entered. Hearing aids placed in the black cabinet. /seda JENNINGS Audiology Health Calibrator Barometers Signed: 07/29/2024 08:42 Receipt Acknowledged By: 07/29/2024 09:22 /kwadwo/ LUIS SCHWARTZ ADVANCED WATER PIPE INSTALLER 07/29/2024 ADDENDUM STATUS: COMPLETED Appointment scheduled on 08/04/2024, hearing aids placed in the cramer cabinet. /kwadwo/ REYES JENNINGS Audiology Health Calibrator Barometers Signed: 07/29/2024 10:17 [facility]
--- OUTSIDE RECORDS SUMMARY | 2024-09-09 13:10 | XMS_ITS ---
Author Name [facility] [place] [facility] [place] Address [address] [place] [address] Care Team Providers Care Bailing Machine Operator Name Role Phone SHIRLEY VILLA Primary Care Provider Unavailabl e Insurance Providers: All historical and current Section [...] section includes the information on record at [place] for the Encounter. Date/Time Encounter Type Encounter Description Reason Provider Source Mar 15, 2024 10:30 AM OFFICE O/P NEW LOW 30 MIN DENTAL ICD-10-CM G47.33 Obstructive sleep apnea (adult) (pediatric) MARINA AUGUSTE Tanesha Encounter Template Text not used by [place] Assessments - Encounter Diagnoses This section includes the primary and secondary diagnoses documented for the Encounter. Date/Time Primary/Secondary Diagnosis Diagnosis Name Provider Source Mar 15, 2024 01:05 PM PRIMARY Obstructive sleep apnea (adult) (pediatric) MARINA AUGUSTE [facility] Plan of Treatment: Future Appointments (+ 6 months) and Future Tests (+/- 45 days) The Plan of Treatment section includes future care activities for the patient from all [place] treatmentfacilities. This section includes future appointments and future orders which are active, pending or scheduled. Future Appointments This section includes appointments that were scheduled to occur 6 months from the date of the Encounter, up to a maximum of 20 appointments. The data comes from all [place] treatment [facility]. Appointment Date/Time Appointment Type Appointme nt Facility Name Apr 07, 2024 11:30 AM AMBULATORY - [facility] [place] [facility] May 05, 2024 01:30 PM AMBULATORY - PS[facility]CHIATRY [facility] [place] [facility] May 31, 2024 09:30 AM AMBULATORY - PS[facility]CHIATRY [facility] [place] [facility] Jun 03, 2024 10:40 AM AMBULATORY - NONE [facility] [place] [facility] Jun 14, 2024 03:00 PM AMBULATORY - REHAB MEDICIN E [facility] [place] [facility] Jun 24, 2024 09:00 AM AMBULATORY - PS[facility]CHIATRY [facility] [place] [facility] Aug 05, 2024 09:00 AM AMBULATORY - PS[facility]CHIATRY [facility] [place] [facility] Aug 11, 2024 01:00 PM AMBULATORY - REHAB MEDICIN E [facility] [place] [facility] Aug 16, 2024 09:00 AM AMBULATORY - REHAB MEDICIN E [facility] [place] [facility] Sep 13, 2024 10:30 AM AMBULATORY - NONE [facility] [place] [facility] Active, Pending, and Scheduled Orders This section includes a listing of several types of active, pending, and scheduled orders, including clinic medications orders, diagnostic test orders, procedure orders and consult orders; where the start date of the order is 45 days before the date of the Encounter or 45 days after the date of theEncounter. The data comes from all [place] treatment [facility]. Test Date/Time Test Type Test Details Facility Name Apr 07, 2024 12:00 AM Laboratory - Chemistry Order ALCOHOL, ETHYL URINE PANEL URINE (DRUG) SP ONCE [facility] [place] [facility] Apr 07, 2024 12:00 AM Laboratory - Chemistry Order AMPHETAMINES SCREEN PANEL URINE (DRUG) [facility] [place] [facility] Apr 07, 2024 12:00 AM Laboratory - Chemistry Order BENZODIAZEPINES SCREEN PANEL URINE (DRUG) SP [facility] [place] [facility] Apr 07, 2024 12:00 AM Laboratory - Chemistry Order CANNABINOIDS SCREEN PANEL URINE (DRUG) SP [facility] [place] [facility] Apr 07, 2024 12:00 AM Laboratory - Chemistry Order COCAINE SCREEN PANEL URINE (DRUG) SP [facility] [place] [facility] Apr 07, 2024 12:00 AM Laboratory - Chemistry Order FENTANYL SCREEN PANEL URINE (DRUG) SP [facility] [place] [facility] Apr 07, 2024 12:00 AM Laboratory - Chemistry Order OPIATES SCREEN PANEL URINE (DRUG) SP [facility] [place] [facility] Social History: Smoking Status (Most current) and Tobacco Use (All prior to encounter date) This section includes the most current, and the historical, smoking and tobacco- related health factors from the [place] facility where the Encounter took place. Current Smoking Status This section includes the most current smoking, or tobacco-related health factor, from the [place] facility where the Encounter took place. Date/Time Current Smoking Status Comment Alf [facility] Jun 11, 2023 03:00 PM VA-TOBACCO NEVER USED [facility] [place] [facility] Tobacco Use History This section includes a history of the smoking, or tobacco-related health factors, that were collected on or before the date of the Encounter. The data comes from the [place] facility where the Encounter took place. Date/Time Smoking Status/Tobacco Use Comment Jay acmio Jul 11, 2022 11:30 AM VA-TOBACCO NEVER USED [facility] [place] [facility] Jul 26, 2021 08:30 AM VA-TOBACCO NEVER USED [facility] [place] [facility] Aug 22, 2020 08:30 AM VA-TOBACCO NEVER USED [facility] [place] [facility] Sep 01, 2019 02:50 PM VA-TOBACCO NEVER USED [facility] [place] [facility] Sep 04, 2018 12:13 PM VA-TOBACCO NEVER USED [facility] [place] [facility] Sep 11, 2017 09:16 AM LIFETIME NON-TOBACCO USER [facility] [place] [facility] Jul 26, 2016 08:58 AM LIFETIME NON-TOBACCO USER [facility] [place] [facility] Jul 26, 2015 02:07 PM LIFETIME NON-TOBACCO USER [facility] [place] [facility] Jun 15, 2014 02:12 PM LIFETIME NON-TOBACCO USER [facility] Encounter Notes: All associated encounter notes This section contains the clinical notes associated to the Encounter. Date/Time Encounter Note(s) Provider Source Mar 15, 2024 01:00 PM DENTISTRY CONSULT: LOCAL TITLE: CONSULT REPORT/DENTAL STANDARD TITLE: DENTISTRY CONSULT DATE OF NOTE: MAR 15, 2024@13:00 ENTRY DATE: MAR 15, 2024@13:05:52 AUTHOR: SARAH AUGUSTE EXP COSIGNER: URGENCY: STATUS: COMPLETED Patient Name: KORINA JONES, : 1980, Age: 44 Visit: S: Mar 15, 2024@10:30 [facility] DENTAL DMD 4. Primary PCE Diagnosis: G47.33 (OBSTRUCTIVE SLEEP APNEA (ADULT) (PEDIATRIC)). Dental Category: 14-OPC, Class III. Treatment Status: Active. Dental Examination: Missing Teeth: 1, 16, 17, 32. Caries: 2(O), 3(O), 15(O), 30(O), 31(B). Existing Dental Restorations: Restored: 30(O) [employer]. Completed Care: ([id number]) OFFICE O/P NEW LOW 30 MIN. DX: G47.33 Obstructive Sleep Apnea (Adult) (Pediatric) (D0330) DENTAL PANORAMIC IMAGE. DX: G47.33 Obstructive Sleep Apnea (Adult) (Pediatric) - - - - - - - - - - - - - - - - - - - - - - - - - - - - - - Patient seen for consultation referred by Primary Care/Pulmonary current diagnosis: sleep apnea patient tried CPAP: yes on file letter of medical necessity/referral: yes patient exam dental/skeletal classification: class III vertical overlap:0 horizontal overlap:0 edge to edge missing teeth: 3rd molars dental condition: adult minimally restored dentition, stain/slowly active pit and fissure decay teeth as charted (2,3,15,30,31 may find other areas also need tx. patient was infromed by his dental office some teeth need restorations, had been planning to make that appointment. Patient does not have much dental coverage, provided paperwork for non-eligible veterans for resources) slight clik left side on open/close patient was unaware of this until today radiograhic findings: slight alveolar bone loss mandibular anterios mobility:possible very slight mobility 24-25 tongue position:retruded MIP-Protrusive range: approx 7mm Mallampati Score:3 Sampsoon-Young Score:3 Discussed findings with patient and reviewed treatment options Patient concerns: looking for emilia applaince to aid in improved sleep quality reviewed appliance video again discussed pros cons and risks, need to titrate and assess for effectiveness Patient appears to be a good candidate for oral appliance therapy for obstructive sleep apnea. Has a few restorative needs and will complete his dental care then return to the clinic for EMILIA appliance. FTF time with patient 45 minutes /kwadwo/ MARGARETH ANN Supervisor Propellant Charge Loading, Chief Dental Service Signed: 03/15/2024 13:05 MARGARETH AUGUSTE [facility] Mar 15, 2024 12:45 PM DENTISTRY CONSULT: LOCAL TITLE: CONSULT REPORT/DENTAL STANDARD TITLE: DENTISTRY CONSULT DATE OF NOTE: MAR 15, 2024@12:45 ENTRY DATE: MAR 15, 2024@12:45:10 AUTHOR: SARAH AUGUSTE EXP COSIGNER: URGENCY: STATUS: COMPLETED Patient seen in dental, radiographs made. See note for details. /kwadwo/ MARGARETH NAN Supervisor Propellant Charge Loading, Chief Dental Service Signed: 03/15/2024 12:45 MARGARETH AUGUSTE [facility]
--- OUTSIDE RECORDS SUMMARY | 2024-09-09 13:10 | XMS_ITS | Encounter Summary ---
Author Name [facility] [place] Address [address] [place] [id number] Care Team Providers Care Oyster Culturist Name Role Phone SHIRLEY VILLA Primary Care [...] section includes the information on record at [place] for the Encounter. Date/Time Encounter Type Encounter Description Reason Pro vider Source IHE Encounter Template Text not used by CT
--- OUTSIDE RECORDS SUMMARY | 2024-09-09 13:10 | XMS_ITS | Continuity of Care Document ---
Author Name [facility] Organization [facility] Care Team Providers Care Mannequin Maker Name Role Phone [facility] Unavailable Unavailable Problems Combined list of problems from Department of Defense and Veterans Affairs facilities. It does not include entries that were removed or entered in error. Problem Status Onset Date Problem Type Date of Resolution Comments Source visit for: ears / hearing exam Active Condition DoD visit for: services physical Active Condition DoD Attention deficit without hyperactivity Active Condition Jul 26, 2016 Entered By: KEVIN MORFIN Comment: ongoing symptomsAug 2017 Entered By: KEVIN MORFIN Comment: on wellbutrinApr 2018 Entered By: KEVIN MORFIN Comment: wellbutrin and sometimes takes methylphenidate from PCPJun 2018 Entered By: KEVIN MORFIN Comment: wellbutrin is working well per his reportNov 2018 Entered By: KEVIN MORFIN Comment: doing well with current medsFeb 2019 Entered By: KEVIN MORFIN Comment: wants to attend Mindfulness groupMay 2019 Entered By: KEVIN MORFIN Comment: stopped mindfulness due to camera useJul 2019 Entered By: KEVIN MORFIN Comment: amphetamine is helpfulAug 2019 Entered By: KEVIN MORFIN Comment: reviewedDec 2019 Entered By: KEVIN MORFIN Comment: reviewedMay 2020 Entered By: KEVIN MORFIN Comment: revieweddJun 2020 Entered By: KEVIN MORFIN Comment: reviewedJul 2020 Entered By: KEVIN MORFIN Comment: reviewedSep 2020 Entered By: KEVIN MORFIN Comment: reviewedSep 2020 Entered By: KEVIN MORFIN Comment: reviewedOct 2020 Entered By: KEVIN MORFIN Comment: reviewedNov 2020 Entered By: KEVIN MORFIN Comment: reviewedJan 2021 Entered By: KEVIN MORFIN Comment: reviewedFeb 2021 Entered By: KEVIN MORFIN Comment: reviewedMar 2021 Entered By: KEVIN MORFIN Comment: reviewedJun 2021 Entered By: KEVIN MORFIN Comment: reviewedJul 2021 Entered By: KEVIN MORFIN Comment: reviewedAug 2021 Entered By: KEVIN MORFIN Comment: reviewedSep 2021 Entered By: KEVIN MORFIN Comment: reviewedOct 2021 Entered By: KEVIN MORFIN Comment: reviewedNov 2021 Entered By: KEVIN MORFIN Comment: reviewedNov 2021 Entered By: KEVIN MORFIN Comment: reviewedDec 2021 Entered By: KEVIN MORFIN Comment: reviewedDec 2021 Entered By: KEVIN MORFIN Comment: reviewedJan 2022 Entered By: KEVIN MORFIN Comment: reviewedFeb 2022 Entered By: KEVIN MORFIN Comment: reviewedApr 2022 Entered By: KEVIN MORFIN Comment: reviewedMay 2022 Entered By: KEVIN MORFIN Comment: reviewedJun 2022 Entered By: KEVIN MORFIN Comment: reviewedJul 2022 Entered By: KEVIN MORFIN Comment: reviewedAug 2022 Entered By: KEVIN MORFIN Comment: reviewedOct 2022 Entered By: KEVIN MORFIN Comment: reviewedNov 2022 Entered By: KEVIN MORFIN Comment: reviewed [facility] Bilateral chronic pain of feet Active Condition [facility] Depressive disorder Active Condition [facility] Erectile dysfunction (SNOMED CT [id number]) Active Condition Sep 09, 2018 Entered By: KEVIN MORFIN Comment: has sildenafil order [facility] Exposure to potentially hazardous substance ([facility] [id number]) Active Condition Aug 26 Entered By: WANDA WELCH Comment: Entered automatically through INA Problem List documentation program [facility] History of alcohol abuse Active Condition [facility] Low back pain Active Condition [facility] Pain in left knee Active Condition [facility] Posttraumatic stress disorder Active Condition Aug 31, 2015 Entered By: KEVIN MORFIN Comment: continues with symptomsMar 2016 Entered By: KEVIN MORFIN Comment: ongoing symptomsAug 2017 Entered By: KEVIN MORFIN Comment: referral for PTSD options classApr 2018 Entered By: KEVIN MORFIN Comment: doing IREST as available, consult for CBT-I and info for [facility] 2018 Entered By: KEVIN MORFIN Comment: doing meditation now dailyNov 2018 Entered By: KEVIN MORFIN Comment: continues with meditation on his ownFeb 2019 Entered By: KEVIN MORFIN Comment: start mindfulness groupFeb 2019 Entered By: KEVIN MORFIN Comment: on methyphenidate for sameMay 2019 Entered By: KEVIN MORFIN Comment: doing meditation exercisesJul 2019 Entered By: KEVIN MORFIN Comment: continues meditation at homeAug 2019 Entered By: KEVIN MORFIN Comment: reviewedDec 2019 Entered By: KEVIN MORFIN Comment: reviewedMay 2020 Entered By: KEVIN MORFIN Comment: reviewedJun 2020 Entered By: KEVIN MORFIN Comment: reviewedJul 2020 Entered By: KEVIN MORFIN Comment: reviewedSep 2020 Entered By: KEVIN MORFIN Comment: reviewedSep 2020 Entered By: KEVIN MORFIN Comment: reviewedOct 2020 Entered By: KEVIN MORFIN Comment: reviewedNov 2020 Entered By: KEVIN MORFIN Comment: reviewedJan 2021 Entered By: KEVIN MORFIN Comment: reviewedFeb 2021 Entered By: KEVIN MORFIN Comment: reviewedMar 2021 Entered By: KEVIN MORFIN Comment: reviewedJun 2021 Entered By: KEVIN MORFIN Comment: reviewedJul 2021 Entered By: KEVIN MORFIN Comment: reviewedAug 2021 Entered By: KEVIN MORFIN Comment: reviewedSep 2021 Entered By: KEVIN MORFIN Comment: reviewedOct 2021 Entered By: KEVIN MORFIN Comment: reviewedNov 2021 Entered By: KEVIN MORFIN Comment: reviewedNov 2021 Entered By: KEVIN MORFIN Comment: reviewedDec 2021 Entered By: KEVIN MORFIN Comment: reviewedDec 2021 Entered By: KEVIN MORFIN Comment: reviewedJan 2022 Entered By: KEVIN MORFIN Comment: reviewedFeb 2022 Entered By: KEVIN MORFIN Comment: reviewedApr 2022 Entered By: KEVIN MORFIN Comment: reviewedMay 2022 Entered By: KEVIN MORFIN Comment: reviewedJun 2022 Entered By: KEVIN MORFIN Comment: reviewedJul 2022 Entered By: KEVIN MORFIN Comment: reviewedAug 2022 Entered By: KEVIN MORFIN Comment: reviewedOct 2022 Entered By: KEVIN MORFIN Comment: reviewedNov 2022 Entered By: KEVIN MORFIN Comment: reviewed [facility] Sleep apnea Active Condition Aug 08, 2023 Entered By: LEW SERRANO Comment: AHI--9.7/hr [facility] Tinnitus Active Condition [facility] Alcohol dependence Inactive Condition 01/16/2016 [place] Diagnosis: ICD-10-CM Z46.1 Encounter for fitting and adjustment of hearing aid Active Diagnosis [facility] Diagnosis: ICD-10-CM 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 [facility] Diagnosis: ICD-10-CM H90.3 Sensorineural hearing loss, bilateral Active Diagnosis [facility] Diagnosis: ICD-10-CM F43.12 Post-traumatic stress disorder, chronic Active Diagnosis [facility] Diagnosis: ICD-10-CM G47.33 Obstructive sleep apnea (adult) (pediatric) Active Diagnosis [facility] Diagnosis: ICD-10-CM F90.9 Attention-defici t hyperactivity disorder, unspecified type Active Diagnosis [facility] Diagnosis: ICD-10-CM G47.30 Sleep apnea, unspecified Active Diagnosis [facility] Diagnosis: ICD-10-CM G47.39 Other sleep apnea Active Diagnosis [facility] Medications Combined list of outpatient medications from Department of Defense and Veterans Affairs facilities.Medications provided include 1) outpatient medications from the last 15 months, and 2) patient-reported medications. Medication Details Route Status Patient Instructions Prescription Expires Prescription Number Last Dispense Date Ordering Provider Order Date Order Qty Source Amphetamine Aspartate/A mphetamine Sulfate/Dex troamphetam ine (Dextroamph etamine Amphetamine Eq.) Capsule Controlled/ Sustained Release 20mg Oral TAKE ONE CAPSULE BY MOUTH THREE TIMES A DAY (NEXT FILL 12/04/23) 12/06/2023 [id number] KEVIN MORFIN 2023 90 [facility] Amphetamine Aspartate/A mphetamine Sulfate/Dex troamphetam ine (Dextroamph etamine Amphetamine Eq.) Capsule Controlled/ Sustained Release 20mg Oral TAKE ONE CAPSULE BY MOUTH THREE TIMES A DAY (NEXT FILL 11/06/23) Discont inued 11/08/2023 [id number] KEVIN MORFIN 2023 90 [facility] AMPHETAMINE -DEXTROAMPH ETAMINE RESIN COMPLEX 20MG CAP,SA TAKE ONE CAPSULE BY MOUTH THREE TIMES A DAY NEXT FILL 08/26 ORAL DISCONT INUED (EDIT) 08/14/2024 [id number] Lizabeth RILEY 2024 90 [facility] AMPHETAMINE -DEXTROAMPH ETAMINE RESIN COMPLEX 20MG CAP,SA TAKE ONE CAPSULE BY MOUTH THREE TIMES A DAY NEXT FILL 07/29 ORAL DISCONT INUED (EDIT) 07/24/2024 [id number] Lizabeth RILEY 2024 90 [facility] AMPHETAMINE -DEXTROAMPH ETAMINE RESIN COMPLEX 20MG CAP,SA TAKE ONE CAPSULE BY MOUTH THREE TIMES A DAY NEXT FILL 07/01 ORAL DISCONT INUED (EDIT) 06/30/2024 [id number] Lizabeth RILEY 2024 90 [facility] AMPHETAMINE -DEXTROAMPH ETAMINE RESIN COMPLEX 20MG CAP,SA TAKE ONE CAPSULE BY MOUTH THREE TIMES A DAY ORAL DISCONT INUED (EDIT) 06/04/2024 [id number] KEVIN MORFIN 2023 90 [facility] AMPHETAMINE -DEXTROAMPH ETAMINE RESIN COMPLEX 20MG CAP,SA TAKE ONE CAPSULE BY MOUTH THREE TIMES A DAY NEXT FILL 05/06 ORAL DISCONT INUED BY PROVIDE R 05/07/2024 [id number] KEVIN MORFIN 2023 90 [facility] AMPHETAMINE -DEXTROAMPH ETAMINE RESIN COMPLEX 20MG CAP,SA TAKE ONE CAPSULE BY MOUTH THREE TIMES A DAY ORAL DISCONT INUED 03/10/2024 [id number] KEVIN MORFIN 2023 90 [facility] AMPHETAMINE -DEXTROAMPH ETAMINE RESIN COMPLEX 20MG CAP,SA TAKE ONE CAPSULE BY MOUTH THREE TIMES A DAY (NEXT FILL 01/12/24) ORAL DISCONT INUED 01/09/2024 [id number] KEVIN MORFIN 2023 90 [facility] AMPHETAMINE -DEXTROAMPH ETAMINE RESIN COMPLEX 20MG CAP,SA TAKE ONE CAPSULE BY MOUTH THREE TIMES A DAY NEXT FILL 01/01 ORAL DISCONT INUED BY PROVIDE R 01/03/2024 [id number] KEVIN MORFIN 2023 30 [facility] AMPHETAMINE -DEXTROAMPH ETAMINE RESIN COMPLEX 20MG CAP,SA TAKE ONE CAPSULE BY MOUTH THREE TIMES A DAY (NEXT FILL 12/04/23) ORAL DISCONT INUED 12/06/2023 [id number] KEVIN MORFIN 2023 90 [facility] AMPHETAMINE -DEXTROAMPH ETAMINE RESIN COMPLEX 20MG CAP,SA TAKE ONE CAPSULE BY MOUTH THREE TIMES A DAY (NEXT FILL 11/06/23) ORAL DISCONT INUED BY PROVIDE R 11/08/2023 [id number] KEVIN MORFIN 2023 90 [facility] AMPHETAMINE -DEXTROAMPH ETAMINE RESIN COMPLEX 20MG CAP,SA TAKE ONE CAPSULE BY MOUTH THREE TIMES A DAY NEXT FILL 09/23 ORAL 09/04/2024 [id number] RILEYLizabeth TAMRA Tanesha 2024 90 [facility] AMPHETAMINE -DEXTROAMPH ETAMINE RESIN COMPLEX 20MG CAP,SA TAKE ONE CAPSULE BY MOUTH THREE TIMES A DAY NEXT FILL 04/05 ORAL 04/07/2024 [id number] KEVIN MORFIN 2023 90 [facility] AMPHETAMINE -DEXTROAMPH ETAMINE RESIN COMPLEX 20MG CAP,SA TAKE ONE CAPSULE BY MOUTH THREE TIMES A DAY ORAL 01/30/2024 [id number] KEVIN MORFIN 2023 90 [facility] Bupropion HCl (Wellbutrin SR) Tablet 100mg Oral TAKE ONE AND ONE-HALF TABLETS BY MOUTH TWICE DAILY FOR DEPRESSI ON (TAKE SECOND DOSE BY 5PM) Active 10/09/2024 [id number] KEVIN MORFIN 2023 90 [facility] Bupropion HCl (Wellbutrin SR) Tablet 100mg Oral TAKE ONE AND ONE-HALF TABLETS BY MOUTH TWICE DAILY FOR DEPRESSI ON (TAKE SECOND DOSE BY 5PM) 08/14/2024 [id number] KEVIN MORFIN 2023 90 [facility] Bupropion HCl (Wellbutrin SR) Tablet 100mg Oral TAKE ONE AND ONE-HALF TABLETS BY MOUTH TWICE DAILY FOR DEPRESSI ON (TAKE SECOND DOSE BY 5PM) 08/14/2024 [id number] KEVIN MORFIN 2023 90 [facility] Bupropion HCl (Wellbutrin SR) Tablet 100mg Oral TAKE ONE AND ONE-HALF TABLETS BY MOUTH TWICE DAILY FOR DEPRESSI ON FOR DEPRESSI ON (TAKE SECOND DOSE BY 5PM) 07/17/2024 [id number] KEVIN MORFIN 2023 90 [facility] Bupropion HCl (Wellbutrin SR) Tablet 100mg Oral TAKE ONE AND ONE-HALF TABLETS BY MOUTH TWICE DAILY FOR DEPRESSI ON (TAKE SECOND DOSE BY 5PM) 01/30/2024 [id number] KEVIN MORFIN 2023 90 [facility] Bupropion HCl (Wellbutrin SR) Tablet 100mg Oral TAKE ONE AND ONE-HALF TABLETS BY MOUTH TWICE DAILY FOR DEPRESSI ON FOR DEPRESSI ON (TAKE SECOND DOSE BY 5PM) 07/17/2024 [id number] KEVIN MORFIN 2023 90 [facility] BUPROPION HCL 100MG TAB TAKE ONE AND ONE-HALF TABLETS BY MOUTH TWICE DAILY FOR DEPRESSI ON (TAKE SECOND DOSE BY 5PM) ORAL DISCONT INUED BY CR Little 06/25/2025 [id number] Lizabeth RILEY 2024 90 [facility] BUPROPION HCL 100MG TAB TAKE ONE AND ONE-HALF TABLETS BY MOUTH TWICE DAILY FOR DEPRESSI ON (TAKE SECOND DOSE BY 5PM) ORAL DISCONT INUED 04/08/2025 [id number] KEVIN MORFIN 2023 90 [facility] BUPROPION HCL 100MG TAB TAKE ONE AND ONE-HALF TABLETS BY MOUTH TWICE DAILY FOR DEPRESSI ON (TAKE SECOND DOSE BY 5PM) ORAL DISCONT INUED 12/10/2024 [id number] KEVIN MORFIN 2023 90 [facility] BUPROPION HCL 100MG TAB TAKE ONE AND ONE-HALF TABLETS BY MOUTH TWICE DAILY FOR DEPRESSI ON (TAKE SECOND DOSE BY 5PM) ORAL DISCONT INUED 10/09/2024 [id number] KEVIN MORFIN 2023 90 [facility] BUPROPION HCL 100MG TAB TAKE ONE AND ONE-HALF TABLETS BY MOUTH TWICE DAILY FOR DEPRESSI ON (TAKE SECOND DOSE BY 5PM) ORAL DISCONT INUED BY PROVIDE R 08/14/2024 [id number] KEVIN MORFIN 2023 90 [facility] BUPROPION HCL 100MG TAB TAKE ONE AND ONE-HALF TABLETS BY MOUTH TWICE DAILY FOR DEPRESSI ON FOR DEPRESSI ON (TAKE SECOND DOSE BY 5PM) ORAL DISCONT INUED BY PROVIDE R 07/17/2024 [id number] KEVIN MORFIN 2023 90 [facility] BUPROPION HCL 100MG TAB TAKE ONE AND ONE-HALF TABLETS BY MOUTH TWICE DAILY FOR DEPRESSI ON (TAKE SECOND DOSE BY 5PM) ORAL DISCONT INUED 01/30/2024 [id number] KEVIN MORFIN 2022 90 [facility] BUPROPION HCL 300MG 24HR TAB,SA TAKE ONE TABLET BY MOUTH EVERY MORNING FOR DEPRESSI ON ORAL ACTIVE 08/06/2025 [id number] Lizabeth RILEY 2024 90 [facility] DEXTROAMPHE TAMINE-AMPH ET ER (dextroamph etamine sulf-saccha rate/amphet amine sulf-aspart ate), 20 MG, CAP ER 24H, ORAL, AMNEAL PHARMACE, 100 ea. BOTTLE Active [id number] 2023 90 [facility] DEXTROAMPHE TAMINE-AMPH ET ER (dextroamph etamine sulf-saccha rate/amphet amine sulf-aspart ate), 20 MG, CAP ER 24H, ORAL, MERLOS PHARMACE, 100 ea. BOTTLE Active [id number] 2023 90 [facility] DEXTROAMPHE TAMINE-AMPH ET ER (dextroamph etamine sulf-saccha rate/amphet amine sulf-aspart ate), 20 MG, CAP ER 24H, ORAL, MERLOS PHARMACE, 100 ea. BOTTLE Active [id number] 2023 90 [facility] y DEXTROAMPHE TAMINE-AMPH ET ER (dextroamph etamine sulf-saccha rate/amphet amine sulf-aspart ate), 20 MG, CAP ER 24H, ORAL, SANDOZ, 100 ea. BOTTLE Active [id number] 2023 90 [facility] FLUOXETINE HCL 10MG CAP TAKE ONE CAPSULE BY MOUTH ONCE DAILY FOR DEPRESSI ON AND ANXIETY ORAL DISCONT INUED (EDIT) 06/25/2025 [id number] 5 Lizabeth RILEY E 2024 30 [facility] FLUOXETINE HCL 20MG CAP TAKE ONE CAPSULE BY MOUTH ONCE DAILY FOR DEPRESSI ON AND ANXIETY ORAL ACTIVE 08/06/2025 [id number] 5 Lizabeth RILEY E 2024 60 [facility] IRX: Prazosin 1 mg vs. Placebo Capsule Conventiona l Oral TAKE ONE CAPSULE BY MOUTH AT BEDTIME FOR NIGHTMAR ES Active 10/09/2024 [id number] KEVIN MORFIN 2023 30 [facility] IRX: Prazosin 1 mg vs. Placebo Capsule Conventiona l Oral TAKE ONE CAPSULE BY MOUTH AT BEDTIME FOR NIGHTMAR ES 08/14/2024 [id number] KEVIN MORFIN 2023 30 [facility] IRX: Prazosin 1 mg vs. Placebo Capsule Conventiona l Oral TAKE ONE CAPSULE BY MOUTH AT BEDTIME FOR NIGHTMAR ES 08/14/2024 [id number] KEVIN MORFIN 2023 30 [facility] IRX: Prazosin 1 mg vs. Placebo Capsule Conventiona l Oral TAKE ONE CAPSULE BY MOUTH AT BEDTIME FOR NIGHTMAR ES 07/17/2024 [id number] 4 KEVIN MORFIN 2023 30 [facility] IRX: Prazosin 1 mg vs. Placebo Capsule Conventiona l Oral TAKE ONE CAPSULE BY MOUTH AT BEDTIME NIGHTMAR ES FOR NIGHTMAR ES 04/23/2024 [id number] KEVIN MORFIN 2023 30 [facility] IRX: Prazosin 1 mg vs. Placebo Capsule Conventiona l Oral TAKE ONE CAPSULE BY MOUTH AT BEDTIME FOR NIGHTMAR ES 07/17/2024 [id number] KEVIN MORFIN 2023 30 [facility] PRAZOSIN HCL 1MG CAP TAKE ONE CAPSULE BY MOUTH AT BEDTIME FOR NIGHTMAR ES ORAL DISCONT INUED (EDIT) 04/08/2025 [id number] KEVIN MORFIN 2023 30 [facility] PRAZOSIN HCL 1MG CAP TAKE ONE CAPSULE BY MOUTH AT BEDTIME FOR NIGHTMAR ES ORAL DISCONT INUED 12/10/2024 [id number] 4 KEVIN MORFIN 2023 30 [facility] PRAZOSIN HCL 1MG CAP TAKE ONE CAPSULE BY MOUTH AT BEDTIME FOR NIGHTMAR ES ORAL DISCONT INUED 10/09/2024 [id number] KEVIN MORFIN 2023 30 [facility] PRAZOSIN HCL 1MG CAP TAKE ONE CAPSULE BY MOUTH AT BEDTIME FOR NIGHTMAR ES ORAL DISCONT INUED BY PROVIDE R 08/14/2024 [id number] 4 KEVIN MORFIN 2023 30 [facility] PRAZOSIN HCL 1MG CAP TAKE ONE CAPSULE BY MOUTH AT BEDTIME FOR NIGHTMAR ES ORAL DISCONT INUED BY PROVIDE R 07/17/2024 [id number] KEVIN MORFIN 2023 30 [facility] PRAZOSIN HCL 1MG CAP TAKE ONE CAPSULE BY MOUTH AT BEDTIME NIGHTMAR ES FOR NIGHTMAR ES ORAL DISCONT INUED 04/23/2024 [id number] KEVIN MORFIN 2022 30 [facility] PRAZOSIN HCL 2MG CAP TAKE ONE CAPSULE BY MOUTH AT BEDTIME FOR NIGHTMAR ES ORAL ACTIVE 06/25/2025 [id number] Lizabeth RILEY E 2024 30 [facility] TESTOSTERON E CYPIONATE (testostero ne cypionate), 200 MG/ML, VIAL, INTRAMUSC, [employer] 1 ml VIAL Active [id number] 2023 2 [facility] TESTOSTERON E CYPIONATE (testostero ne cypionate), 200 MG/ML, VIAL, INTRAMUSC, [employer] 1 ml VIAL Active [id number] 2023 2 Pharmac y [facility] Transac t[facility] Service Facilit y TESTOSTERON E CYPIONATE (testostero ne cypionate), 200 MG/ML, VIAL, INTRAMUSC, [employer] 1 ml VIAL Active [id number] 2023 2 Pharmac y Data Transac tion Service Facilit y TESTOSTERON E CYPIONATE (testostero ne cypionate), 200 MG/ML, VIAL, INTRAMUSC, [employer] 1 ml VIAL Active [id number] 2023 2 Pharmac y Data Transac tion Service Facilit y TESTOSTERON E CYPIONATE 200MG/ML INJ,1ML (IN OIL) INJECT 0.5ML (100MG) INTRAMUS CULARLY ONCE A WEEK INTRAM USCULA R ACTIVE STEFANIE SERRANO AMALYSE JAWED [facility] TRAZODONE HCL 100MG TAB TAKE ONE-HALF TABLET BY MOUTH AT BEDTIME FOR INSOMNIA ASSOCIAT ED WITH DEPRESSI ON ORAL ACTIVE 08/06/2025 [id number] 5 Lizabeth RILEY E 2024 30 [facility] Allergies, Adverse Reactions, Alerts Combined list of allergies from Department of Defense and Veterans Affairs facilities. It does not include entries that were removed or entered in error. Substance Category Reaction Severity Reaction type Status Date Reported Comments Source No Known Allergies Drug allergy (disorder) active 01/16/2015 [facility] Immunizations Combined list of available immunizations from the Department of Defense and Veterans Affairs facilities. Immunization Series Date Given Administered By Site Reaction Lot Number CVX Code Drug One Piece Expansion Maker Hand Status Comments Source INFLUENZA, UNSPECIFIED FORMULATION 2022 88 complet ed Booster for Series, HISTORICA L INFORMATI ON - FROM OTHER PROVIDER, [facility] INFLUENZA, UNSPECIFIED FORMULATION 2021 88 complet ed [facility] COVID-19, mRNA, LNP-S, PF, 30 mcg/0.3 mL dose, petr-sucrose 2021 BOGDASARIAN, () Not Given COVID-19, mRNA, LNP-S, PF, 30 mcg/0.3 mL dose, petr-sucr ose DoD Influenza, injectable, MDCK, preservative free, quadrivalent 2020 BRAGA, () Not Given Influenza , injectabl e, MDCK, preservat juan manuel free, quadrival ent DoD INFLUENZA, UNSPECIFIED FORMULATION 2020 88 complet ed [facility] Influenza, injectable, MDCK, preservative free, quadrivalent 2019 BRAGA, () Not Given Influenza , injectabl e, MDCK, preservat juan manuel free, quadrival ent DoD INFLUENZA, SEASONAL, INJECTABLE 2018 141 complet ed [facility] influenza, injectable, quadrivalent, preservative free 2018 BOGDASARIAN, () Not Given influenza , injectabl e, quadrival ent, preservat juan manuel free DoD INFLUENZA, INJECTABLE, QUADRIVALENT 2018 158 complet ed 02, Partner: [facility]. Administe red by: SOO TRUJILLO (FGN=[phone]). Partner 3 Lot#: [id number] Mfr: SEQIRUS; Dosage: 0.5 [facility] INFLUENZA, SEASONAL, INJECTABLE 2016 141 complet ed [facility] FLU,3 YRS (HISTORICAL) 2015 [facility] influenza, injectable, quadrivalent, preservative free 2015 LOTUS, () Not Given influenza , injectabl e, quadrival ent, preservat juan manuel free DoD DTAP 2015 20 complet ed Site: Left Deltoid [facility] DTAP, UNSPECIFIED FORMULATION 2015 107 complet ed [facility] FLU,3 YRS (HISTORICAL) 2014 88 complet ed [facility] Influenza, seasonal, injectable, preservative free 2014 WOOD, () Not Given Influenza , seasonal, injectabl e, preservat juan manuel free DoD FLU,3 YRS (HISTORICAL) 2013 [facility] Influenza, seasonal, injectable, preservative free 0 2013 140 (MVX) complet ed Influenza , seasonal, injectabl e, preservat juan manuel free DoD Influenza, seasonal, injectable 0 2012 141 (MVX) complet ed Influenza , seasonal, injectabl e DoD Influenza, seasonal, injectable, preservative free 1 2011 [id number] 140 Unknown (UNK) comple t ed Influenza , seasonal, injectabl e, preservat juan manuel free DoD Influenza, seasonal, injectable 0 2011 141 [employer] Pasteur ([facility]) complet ed Influenza , seasonal, injectabl e DoD Influenza, seasonal, injectable, preservative free 1 2011 [id number] 140 Unknown (UNK) complet ed Influenza , seasonal, injectabl e, preservat juan manuel free DoD rabies vaccine, for intramuscular injection RETIRED CODE 5 2010 [id number] 18 [employer] Carmen. (MAR) complet ed rabies vaccine, for intramusc ular injection RETIRED CODE DoD rabies vaccine, for intramuscular injection RETIRED CODE 4 2010 [id number] 18 [employer] Carmen. (MAR) complet ed rabies vaccine, for intramusc ular injection RETIRED CODE DoD rabies vaccine, for intramuscular injection RETIRED CODE 3 2010 [id number] 18 [employer] Carmen. (MAR) complet ed rabies vaccine, for intramusc ular injection RETIRED CODE DoD anthrax vaccine 3 2010 [id number] [facility]) complet ed anthrax vaccine DoD rabies vaccine, for intramuscular injection RETIRED CODE 2 2010 [id number] 18 Aviron (ARIS) complet ed rabies vaccine, for intramusc ular injection RETIRED CODE DoD rabies vaccine, for intramuscular injection RETIRED CODE 1 2010 [id number] 18 Novartis Skigit. (NOV) complet ed rabies vaccine, for intramusc ular injection RETIRED CODE DoD yellow fever vaccine 1 2010 [id number] 37 Aviron (ARIS) complet ed yellow fever vaccine DoD vaccinia (smallpox) vaccine 1 2010 [id number] 75 Unknown (UNK) complet ed vaccinia (smallpox ) vaccine DoD anthrax vaccine 2 2010 [id number] 24 [facility] complet ed anthrax vaccine DoD varicella virus vaccine 1 2009 UNK 21 Unknown (UNK) Not Given varicella virus vaccine DoD anthrax vaccine 1 2009 [id number] 24 [facility] [facility] ([facility]) complet ed anthrax vaccine DoD tuberculin skin test; purified protein derivative solution, intradermal 1 2009 Unknown, Provider [id number] 96 [employer] (ARIS) complet ed tuberculi n skin test; purified protein derivativ e solution, intraderm al DoD typhoid Vi capsular polysaccharid e vaccine 1 2009 [id number] Unknown (UNK) comple t ed typhoid Vi capsular polysacch aride vaccine DoD influenza virus vaccine, live, attenuated, for intranasal use 1 2009 [id number] Unknown (UNK) comple t ed influenza virus vaccine, live, attenuate d, for intranasa l use DoD hepatitis A vaccine, adult dosage 3 2009 [id number] [facility] complet ed hepatitis A vaccine, adult dosage DoD tetanus toxoid, reduced diphtheria toxoid, and acellular pertu is vaccine, adsorbed 1 2009 [id number] Sanofi Pasteur (PMC) complet ed tetanus toxoid, reduced diphtheri a toxoid, and acellular pertussis vaccine, adsorbed DoD influenza virus vaccine, live, attenuated, for intranasal use 1 2008 [id number] 111 Unknown (UNK) comple t ed influenza virus vaccine, live, attenuate d, for intranasa l use DoD influenza virus vaccine, live, attenuated, for intranasal use 1 2005 [id number] Unknown (UNK) comple t ed influenza virus vaccine, live, attenuate d, for intranasa l use DoD hepatitis B vaccine, adult dosage 1 2002 UNK 43 Unknown (UNK) comple t ed hepatitis B vaccine, adult dosage DoD influenza virus vaccine, split virus (incl. purified surface antigen)-reti red CODE 0 2001 [id number] Unknown (UNK) comple t ed influenza virus vaccine, split virus (incl. purified surface antigen)- retired CODE DoD hepatitis B vaccine, adult dosage 2 2001 UNK 43 Unknown (UNK) comple t ed hepatitis B vaccine, adult dosage DoD hepatitis A and hepatitis B vaccine 1 2001 UNK 104 Unknown (UNK) comple t ed hepatitis A and hepatitis B vaccine DoD influenza virus vaccine, split virus (incl. purified surface antigen)-reti red CODE 0 2000 [id number] Sanofi Pasteur ([facility]) complet ed influenza virus vaccine, split virus (incl. purified surface antigen)- retired CODE DoD measles, mumps and rubella virus vaccine 1 2000 UNK 03 Unknown (UNK) comple t ed measles, mumps and rubella virus vaccine DoD tetanus and diphtheria toxoids, adsorbed, preservative free, for adult use (2 Lf of tetanus toxoid and 2 Lf of diphtheria toxoid) 1 2000 UNK 09 Unknown (UNK) comple t ed tetanus and diphtheri a toxoids, adsorbed, preservat juan manuel free, for adult use (2 Lf of tetanus toxoid and 2 Lf of diphtheri a toxoid) DoD poliovirus vaccine, unspecified formulation 1 2000 UNK 89 Unknown (UNK) comple t ed polioviru s vaccine, unspecifi ed formulati on DoD yellow fever vaccine 0 1999 UNK 37 Unknown (UNK) comple t ed yellow fever vaccine DoD typhoid vaccine, unspecified formulation 0 1999 UNK 91 Unknown (UNK) comple t ed typhoid vaccine, unspecifi ed formulati on DoD measles, mumps and rubella virus vaccine 0 1999 UNK 03 Unknown (UNK) comple t ed measles, mumps and rubella virus vaccine DoD tetanus and diphtheria toxoids, adsorbed, preservative free, for adult use (2 Lf of tetanus toxoid and 2 Lf of diphtheria toxoid) 0 1999 UNK 09 Unknown (UNK) comple t ed tetanus and diphtheri a toxoids, adsorbed, preservat juan manuel free, for adult use (2 Lf of tetanus toxoid and 2 Lf of diphtheri a toxoid) DoD poliovirus vaccine, inactivated 0 1999 UNK 10 Unknown (UNK) comple t ed polioviru s vaccine, inactivat ed DoD meningococcal polysaccharid e vaccine (MPSV4) 0 1999 UNK 32 Unknown (UNK) comple t ed meningoco ccal polysacch aride vaccine (MPSV4) DoD hepatitis A vaccine, adult dosage 1 1999 UNK 52 Unknown (UNK) comple t ed hepatitis A vaccine, adult dosage DoD Results Combined list of recent chemistry, hematology and other laboratory results from [employer] and [employer], ranging from 15 months to all on record, depending upon the facility. Order Name Results Value Reference Range Date Interpretation Specimen Comments Source ALCOHOL, ETHYL URINE PANEL ETHANOL [MASS/VOLUM E] IN URINE NONE-D ETECTE Dmg/dL - 10 10/08 Specimen Type: URINE Comment: Urine with Cr <5 is diluted or substituted . Cr between 5 and 20 is very dilute. Urine with SG of 1.001 or less is diluted or substituted . SG of 1.003 or less is very dilute. Urine with a pH <3 or >11 has been adulterated and is unsuitable for testing by our current method. Urine with pH between 3 and 4 OR 10 and 11 may have been adulterated . Ordering Provider: ANURADHA MORFIN Report Released Date/Time: October 09, 2023 10:16 AM Reporting Lab: [facility] [address] [address] Performing Lab: [facility] 4 the starsCHUSENYU [facility] [address] [address] [facility] 4 the starsUSE [facility] ALCOHOL, ETHYL URINE PANEL PH OF URINE 7.0 [pH] 4 - 10 10/08 Specimen Type: URINE Comment: Urine with Cr <5 is diluted or substituted . Cr between 5 and 20 is very dilute. Urine with SG of 1.001 or less is diluted or substituted . SG of 1.003 or less is very dilute. Urine with a pH <3 or >11 has been adulterated and is unsuitable for testing by our current method. Urine with pH between 3 and 4 OR 10 and 11 may have been adulterated . Ordering Provider: ANURADHA MORFIN Report Released Date/Time: October 09, 2023 10:16 AM Reporting Lab: [facility]N [place] [address] [address] Performing Lab: [facility]ITALRL [place]STRN [place] [facility] [address] [facility] [address] [facility]ITALRENCOM[facility]ITALN [place] [facility] ALCOHOL, ETHYL URINE PANEL CREATININE [MASS/VOLUM E] IN URINE 102.27 mg/dL 10/08 Specimen Type: URINE Comment: Urine with Cr <5 is diluted or substituted . Cr between 5 and 20 is very dilute. Urine with SG of 1.001 or less is diluted or substituted . SG of 1.003 or less is very dilute. Urine with a pH <3 or >11 has been adulterated and is unsuitable for testing by our current method. Urine with pH between 3 and 4 OR 10 and 11 may have been adulterated . Ordering Provider: ANURADHA MORFIN Report Released Date/Time: October 09, 2023 10:16 AM Reporting Lab: [facility]ITALRJ[facility]OSPITALTRN [place] [address] [address] Performing Lab: [facility] H[facility]ITALRJOHN PAUL JONES HOSPITALTRN [facility]ENTERCHUSETS [address] [address] [facility] ALCOHOL, ETHYL URINE PANEL SPECIFIC GRAVITY OF URINE 1.020 1.003 - 1.020 10/08 Specimen Type: URINE Comment: Urine with Cr <5 is diluted or substituted . Cr between 5 and 20 is very dilute. Urine with SG of 1.001 or less is diluted or substituted . SG of 1.003 or less is very dilute. Urine with a pH <3 or >11 has been adulterated and is unsuitable for testing by our current method. Urine with pH between 3 and 4 OR 10 and 11 may have been adulterated . Ordering Provider: ANURADHA MORFIN Report Released Date/Time: October 09, 2023 10:16 AM Reporting Lab: [facility]OSPITALRJOHN PAUL JONES HOSPITALTRN [address] [address] Performing Lab: [address] [address] [facility] AMPHETAMI LEDA SCREEN PANEL AMPHETAMINE S [PRESENCE] IN URINE NONE-D ETECTE D - 1000 10/08 Specimen Type: URINE Comment: Urine with Cr <5 is diluted or substituted . Cr between 5 and 20 is very dilute. Urine with SG of 1.001 or less is diluted or substituted . SG of 1.003 or less is very dilute. Urine with a pH <3 or >11 has been adulterated and is unsuitable for testing by our current method. Urine with pH between 3 and 4 OR 10 and 11 may have been adulterated . Ordering Provider: ANURADHA MORFIN Report Released Date/Time: October 09, 2023 10:16 AM Reporting Lab: [address] [address] Performing Lab: [address] [address] [facility] AMPHETAMI LEDA SCREEN PANEL PH OF URINE 7.0 [pH] 4 - 10 10/08 Specimen Type: URINE Comment: Urine with Cr <5 is diluted or substituted . Cr between 5 and 20 is very dilute. Urine with SG of 1.001 or less is diluted or substituted . SG of 1.003 or less is very dilute. Urine with a pH <3 or >11 has been adulterated and is unsuitable for testing by our current method. Urine with pH between 3 and 4 OR 10 and 11 may have been adulterated . Ordering Provider: ANURADHA MORFIN Report Released Date/Time: October 09, 2023 10:16 AM Reporting Lab: [address] [address] Performing Lab: [address] [address] [facility] AMPHETAMI LEDA SCREEN PANEL CREATININE [MASS/VOLUM E] IN URINE 102.27 mg/dL 10/08 Specimen Type: URINE Comment: Urine with Cr <5 is diluted or substituted . Cr between 5 and 20 is very dilute. Urine with SG of 1.001 or less is diluted or substituted . SG of 1.003 or less is very dilute. Urine with a pH <3 or >11 has been adulterated and is unsuitable for testing by our current method. Urine with pH between 3 and 4 OR 10 and 11 may have been adulterated . Ordering Provider: ANURADHA MORFIN Report Released Date/Time: October 09, 2023 10:16 AM Reporting Lab: [facility]USE[address] [address] Performing Lab: [address] [address] [facility] AMPHETAMI LEDA SCREEN PANEL SPECIFIC GRAVITY OF URINE 1.020 1.003 - 1.020 10/08 Specimen Type: URINE Comment: Urine with Cr <5 is diluted or substituted . Cr between 5 and 20 is very dilute. Urine with SG of 1.001 or less is diluted or substituted . SG of 1.003 or less is very dilute. Urine with a pH <3 or >11 has been adulterated and is unsuitable for testing by our current method. Urine with pH between 3 and 4 OR 10 and 11 may have been adulterated . Ordering Provider: ANURADHA MORFIN Report Released Date/Time: October 09, 2023 10:16 AM Reporting Lab: [address] [address] Performing Lab: [address] [address] [facility] BENZODIAZ EPINES SCREEN PANEL BENZODIAZEP SHIMON [PRESENCE] IN URINE BY SCREEN METHOD NONE-D ETECTE D - 200 10/08 Specimen Type: URINE Comment: Urine with Cr <5 is diluted or substituted . Cr between 5 and 20 is very dilute. Urine with SG of 1.001 or less is diluted or substituted . SG of 1.003 or less is very dilute. Urine with a pH <3 or >11 has been adulterated and is unsuitable for testing by our current method. Urine with pH between 3 and 4 OR 10 and 11 may have been adulterated . Ordering Provider: ANURADHA MORFIN Report Released Date/Time: October 09, 2023 10:16 AM Reporting Lab: [facility] [place] [facility] [address] [address] Performing Lab: [facility] [place] [facility] [address] [facility] [address] [facility] [place] [facility] BENZODIAZ EPINES SCREEN PANEL PH OF URINE 7.0 [pH] 4 - 10 10/08 Specimen Type: URINE Comment: Urine with Cr <5 is diluted or substituted . Cr between 5 and 20 is very dilute. Urine with SG of 1.001 or less is diluted or substituted . SG of 1.003 or less is very dilute. Urine with a pH <3 or >11 has been adulterated and is unsuitable for testing by our current method. Urine with pH between 3 and 4 OR 10 and 11 may have been adulterated . Ordering Provider: ANURADHA MORFIN Report Released Date/Time: October 09, 2023 10:16 AM Reporting Lab: [facility] [place] [facility] [address] [address] Performing Lab: [place] [facility] [place] [facility] [address] [address] [facility]ITALRL WSTRN [place] [facility] BENZODIAZ EPINES SCREEN PANEL CREATININE [MASS/VOLUM E] IN URINE 102.27 mg/dL 10/08 Specimen Type: URINE Comment: Urine with Cr <5 is diluted or substituted . Cr between 5 and 20 is very dilute. Urine with SG of 1.001 or less is diluted or substituted . SG of 1.003 or less is very dilute. Urine with a pH <3 or >11 has been adulterated and is unsuitable for testing by our current method. Urine with pH between 3 and 4 OR 10 and 11 may have been adulterated . Ordering Provider: ANURADHA MORFIN Report Released Date/Time: October 09, 2023 10:16 AM Reporting Lab: [facility] [place] [facility] [address] [address] Performing Lab: [place] [place] [address] [address] [facility] [place] [facility] BENZODIAZ EPINES SCREEN PANEL SPECIFIC GRAVITY OF URINE 1.020 1.003 - 1.020 10/08 Specimen Type: URINE Comment: Urine with Cr <5 is diluted or substituted . Cr between 5 and 20 is very dilute. Urine with SG of 1.001 or less is diluted or substituted . SG of 1.003 or less is very dilute. Urine with a pH <3 or >11 has been adulterated and is unsuitable for testing by our current method. Urine with pH between 3 and 4 OR 10 and 11 may have been adulterated . Ordering Provider: ANURADHA MORFIN Report Released Date/Time: October 09, 2023 10:16 AM Reporting Lab: [address] [address] Performing Lab: [address] [address] [facility] CANNABINO IDS SCREEN PANEL CANNABINOID S [PRESENCE] IN URINE BY SCREEN METHOD NONE-D ETECTE D - 50 10/08 Specimen Type: URINE Comment: Urine with Cr <5 is diluted or substituted . Cr between 5 and 20 is very dilute. Urine with SG of 1.001 or less is diluted or substituted . SG of 1.003 or less is very dilute. Urine with a pH <3 or >11 has been adulterated and is unsuitable for testing by our current method. Urine with pH between 3 and 4 OR 10 and 11 may have been adulterated . Ordering Provider: ANURADHA MORFIN Report Released Date/Time: October 09, 2023 10:16 AM Reporting Lab: [facility] [address] Performing Lab: [address] [address] [facility] CANNABINO IDS SCREEN PANEL PH OF URINE 7.0 [pH] 4 - 10 10/08 Specimen Type: URINE Comment: Urine with Cr <5 is diluted or substituted . Cr between 5 and 20 is very dilute. Urine with SG of 1.001 or less is diluted or substituted . SG of 1.003 or less is very dilute. Urine with a pH <3 or >11 has been adulterated and is unsuitable for testing by our current method. Urine with pH between 3 and 4 OR 10 and 11 may have been adulterated . Ordering Provider: ANURADHA MORFIN Report Released Date/Time: October 09, 2023 10:16 AM Reporting Lab: [facility]ITALRL [place] [facility] [address] [facility] [address] Performing Lab: [place] [address] [address] [facility]ITALRJOHN PAUL JONES HOSPITALTRN [place] [facility] CANNABINO IDS SCREEN PANEL CREATININE [MASS/VOLUM E] IN URINE 102.27 mg/dL 10/08 Specimen Type: URINE Comment: Urine with Cr <5 is diluted or substituted . Cr between 5 and 20 is very dilute. Urine with SG of 1.001 or less is diluted or substituted . SG of 1.003 or less is very dilute. Urine with a pH <3 or >11 has been adulterated and is unsuitable for testing by our current method. Urine with pH between 3 and 4 OR 10 and 11 may have been adulterated . Ordering Provider: ANURADHA MORFIN Report Released Date/Time: October 09, 2023 10:16 AM Reporting Lab: [facility]ITALRL [place]N [place] [address] [address] Performing Lab: [facility]ITALRL [place] [address] [address] [facility] CANNABINO IDS SCREEN PANEL SPECIFIC GRAVITY OF URINE 1.020 1.003 - 1.020 10/08 Specimen Type: URINE Comment: Urine with Cr <5 is diluted or substituted . Cr between 5 and 20 is very dilute. Urine with SG of 1.001 or less is diluted or substituted . SG of 1.003 or less is very dilute. Urine with a pH <3 or >11 has been adulterated and is unsuitable for testing by our current method. Urine with pH between 3 and 4 OR 10 and 11 may have been adulterated . Ordering Provider: ANURADHA MORFIN Report Released Date/Time: October 09, 2023 10:16 AM Reporting Lab: [facility]ITALRL [place] [address] [address] Performing Lab: [address] [address] [facility] COCAINE SCREEN PANEL COCAINE [PRESENCE] IN URINE BY SCREEN METHOD NONE-D ETECTE D - 300 10/08 Specimen Type: URINE Comment: Urine with Cr <5 is diluted or substituted . Cr between 5 and 20 is very dilute. Urine with SG of 1.001 or less is diluted or substituted . SG of 1.003 or less is very dilute. Urine with a pH <3 or >11 has been adulterated and is unsuitable for testing by our current method. Urine with pH between 3 and 4 OR 10 and 11 may have been adulterated . Ordering Provider: ANURADHA MORFIN Report Released Date/Time: October 09, 2023 10:16 AM Reporting Lab: [address] [address] Performing Lab: [address] [address] [facility] COCAINE SCREEN PANEL PH OF URINE 7.0 [pH] 4 - 10 10/08 Specimen Type: URINE Comment: Urine with Cr <5 is diluted or substituted . Cr between 5 and 20 is very dilute. Urine with SG of 1.001 or less is diluted or substituted . SG of 1.003 or less is very dilute. Urine with a pH <3 or >11 has been adulterated and is unsuitable for testing by our current method. Urine with pH between 3 and 4 OR 10 and 11 may have been adulterated . Ordering Provider: ANURADHA MORFIN Report Released Date/Time: October 09, 2023 10:16 AM Reporting Lab: [address] [address] Performing Lab: [address] [address] [facility] COCAINE SCREEN PANEL CREATININE [MASS/VOLUM E] IN URINE 102.27 mg/dL 10/08 Specimen Type: URINE Comment: Urine with Cr <5 is diluted or substituted . Cr between 5 and 20 is very dilute. Urine with SG of 1.001 or less is diluted or substituted . SG of 1.003 or less is very dilute. Urine with a pH <3 or >11 has been adulterated and is unsuitable for testing by our current method. Urine with pH between 3 and 4 OR 10 and 11 may have been adulterated . Ordering Provider: ANURADHA MORFIN Report Released Date/Time: October 09, 2023 10:16 AM Reporting Lab: [address] [address] Performing Lab: [address] [address] [facility] COCAINE SCREEN PANEL SPECIFIC GRAVITY OF URINE 1.020 1.003 - 1.020 10/08 Specimen Type: URINE Comment: Urine with Cr <5 is diluted or substituted . Cr between 5 and 20 is very dilute. Urine with SG of 1.001 or less is diluted or substituted . SG of 1.003 or less is very dilute. Urine with a pH <3 or >11 has been adulterated and is unsuitable for testing by our current method. Urine with pH between 3 and 4 OR 10 and 11 may have been adulterated . Ordering Provider: ANURADHA MORFIN Report Released Date/Time: October 09, 2023 10:16 AM Reporting Lab: [address] [address] Performing Lab: [address] [address] [facility] FENTANYL SCREEN PANEL FENTANYL [PRESENCE] IN URINE BY SCREEN METHOD NONE-D ETECTE Dng/mL 10/08 Specimen Type: URINE Comment: Urine with Cr <5 is diluted or substituted . Cr between 5 and 20 is very dilute. Urine with SG of 1.001 or less is diluted or substituted . SG of 1.003 or less is very dilute. Urine with a pH <3 or >11 has been adulterated and is unsuitable for testing by our current method. Urine with pH between 3 and 4 OR 10 and 11 may have been adulterated . FENTANYL CONFIRMATIO N NOT SENT BY LAB. Ordering Provider: ANURADHA MORFIN Report Released Date/Time: October 09, 2023 10:16 AM Reporting Lab: [address] [address] Performing Lab: [address] [address] [facility] FENTANYL SCREEN PANEL PH OF URINE 7.0 [pH] 4 - 10 10/08 Specimen Type: URINE Comment: Urine with Cr <5 is diluted or substituted . Cr between 5 and 20 is very dilute. Urine with SG of 1.001 or less is diluted or substituted . SG of 1.003 or less is very dilute. Urine with a pH <3 or >11 has been adulterated and is unsuitable for testing by our current method. Urine with pH between 3 and 4 OR 10 and 11 may have been adulterated . FENTANYL CONFIRMATIO N NOT SENT BY LAB. Ordering Provider: ANURADHA MORFIN Report Released Date/Time: October 09, 2023 10:16 AM Reporting Lab: [address] [address] Performing Lab: [address] [address] [facility] FENTANYL SCREEN PANEL CREATININE [MASS/VOLUM E] IN URINE 102.07 mg/dL 10/08 Specimen Type: URINE Comment: Urine with Cr <5 is diluted or substituted . Cr between 5 and 20 is very dilute. Urine with SG of 1.001 or less is diluted or substituted . SG of 1.003 or less is very dilute. Urine with a pH <3 or >11 has been adulterated and is unsuitable for testing by our current method. Urine with pH between 3 and 4 OR 10 and 11 may have been adulterated . FENTANYL CONFIRMATIO N NOT SENT BY LAB. Ordering Provider: ANURADHA MORFIN Report Released Date/Time: October 09, 2023 10:16 AM Reporting Lab: [address] [address] Performing Lab: [address] [address] [facility] FENTANYL SCREEN PANEL SPECIFIC GRAVITY OF URINE 1.020 1.003 - 1.020 10/08 Specimen Type: URINE Comment: Urine with Cr <5 is diluted or substituted . Cr between 5 and 20 is very dilute. Urine with SG of 1.001 or less is diluted or substituted . SG of 1.003 or less is very dilute. Urine with a pH <3 or >11 has been adulterated and is unsuitable for testing by our current method. Urine with pH between 3 and 4 OR 10 and 11 may have been adulterated . FENTANYL CONFIRMATIO N NOT SENT BY LAB. Ordering Provider: ANURADHA MORFIN Report Released Date/Time: October 09, 2023 10:16 AM Reporting Lab: [facility] [address] Performing Lab: [facility] [address] [facility] OPIATES SCREEN PANEL OPIATES [PRESENCE] IN URINE BY SCREEN METHOD NONE-D ETECTE D - 300 10/08 Specimen Type: URINE Comment: Urine with Cr <5 is diluted or substituted . Cr between 5 and 20 is very dilute. Urine with SG of 1.001 or less is diluted or substituted . SG of 1.003 or less is very dilute. Urine with a pH <3 or >11 has been adulterated and is unsuitable for testing by our current method. Urine with pH between 3 and 4 OR 10 and 11 may have been adulterated . Ordering Provider: ANURADHA MORFIN Report Released Date/Time: October 09, 2023 10:16 AM Reporting Lab: [facility] [address] Performing Lab: [facility] [address] [facility] OPIATES SCREEN PANEL PH OF URINE 7.0 [pH] 4 - 10 10/08 Specimen Type: URINE Comment: Urine with Cr <5 is diluted or substituted . Cr between 5 and 20 is very dilute. Urine with SG of 1.001 or less is diluted or substituted . SG of 1.003 or less is very dilute. Urine with a pH <3 or >11 has been adulterated and is unsuitable for testing by our current method. Urine with pH between 3 and 4 OR 10 and 11 may have been adulterated . Ordering Provider: ANURADHA MORFIN Report Released Date/Time: October 09, 2023 10:16 AM Reporting Lab: [facility]ITALRJOHN PAUL JONES HOSPITALTRN [place] [facility] [address] [address] Performing Lab: [facility] HOSPITALRENCOMPASS HEALTH LAKESHORE RE[facility] HOSPITALN [facility]USE[address] [address] [facility]USE [facility] OPIATES SCREEN PANEL CREATININE [MASS/VOLUM E] IN URINE 102.27 mg/dL 10/08 Specimen Type: URINE Comment: Urine with Cr <5 is diluted or substituted . Cr between 5 and 20 is very dilute. Urine with SG of 1.001 or less is diluted or substituted . SG of 1.003 or less is very dilute. Urine with a pH <3 or >11 has been adulterated and is unsuitable for testing by our current method. Urine with pH between 3 and 4 OR 10 and 11 may have been adulterated . Ordering Provider: ANURADHA MORFIN Report Released Date/Time: October 09, 2023 10:16 AM Reporting Lab: [facility] [facility] [address] Performing Lab: [facility] [address] [facility] OPIATES SCREEN PANEL SPECIFIC GRAVITY OF URINE 1.020 1.003 - 1.020 10/08 Specimen Type: URINE Comment: Urine with Cr <5 is diluted or substituted . Cr between 5 and 20 is very dilute. Urine with SG of 1.001 or less is diluted or substituted . SG of 1.003 or less is very dilute. Urine with a pH <3 or >11 has been adulterated and is unsuitable for testing by our current method. Urine with pH between 3 and 4 OR 10 and 11 may have been adulterated . Ordering Provider: ANURADHA MORFIN Report Released Date/Time: October 09, 2023 10:16 AM Reporting Lab: [facility]N [facility] [address] Performing Lab: [facility] [address] [facility] [address] [facility]ITALRJ[facility]ITALTR[facility] HEPATITIS C ANTIBODY (HCV)-ARC HEPATITIS C VIRUS AB [PRESENCE] IN SERUM NON-RE ACTIVE 06/04 Specimen Type: SERUM Comment: Hep C Ab: No HCV antibody detected. If recent infection is suspected or other evidence suggests HCV infection, consider HCV nucleic acid testing Ordering Provider: MARCE SERRANO Report Released Date/Time: May 26, 2023 09:21 AM Reporting Lab: [place] [facility] [place] [facility] [address] [facility] [address] Performing Lab: [facility] [place] [facility] [address] [facility] [address] [facility]ITALRL [facility]N [place] [facility] PROTEIN/C REATININE RATIO PANEL, URINE CREATININE [MASS/VOLUM E] IN URINE 142.38 mg/dL 06/04 Specimen Type: URINE No comment entered. Ordering Provider: MARCE SERRANO Report Released Date/Time: Mar 11, 2023 04:45 PM Reporting Lab: [facility] [place] [facility] [address] [facility] [address] Performing Lab: [place] [facility] [facility] [address] [facility] [address] [facility] [place] [facility] PROTEIN/C REATININE RATIO PANEL, URINE PROTEIN/CRE ATININE [MASS RATIO] IN URINE 0.1 <0.2 - 0.2 06/04 Specimen Type: URINE No comment entered. Ordering Provider: MARCE SERRANO Report Released Date/Time: Mar 11, 2023 04:45 PM Reporting Lab: [facility] [place] [place] [facility] [address] [facility] [address] Performing Lab: [facility] [place] [facility] [address] [facility] [address] [facility] [place] [facility] PROTEIN/C REATININE RATIO PANEL, URINE PROTEIN [MASS/VOLUM E] IN URINE 7.7 mg/dL 0.0 - 20.0 06/04 Specimen Type: URINE No comment entered. Ordering Provider: MARCE SERRANO Report Released Date/Time: Mar 11, 2023 04:45 PM Reporting Lab: [facility] [place] [facility] [address] [facility] [address] Performing Lab: [facility] [place] [facility] [address] [facility] [address] [facility] [place] [facility] LIPID PANEL FASTING CHOLESTEROL [MASS/VOLUM E] IN SERUM OR PLASMA 204 mg/dL 06/04 H Specimen Type: SERUM No comment entered. Ordering Provider: MARCE SERRANO Report Released Date/Time: Mar 11, 2023 04:45 PM Reporting Lab: [facility] [place] [facility] [address] [facility] [address] Performing Lab: [facility] [place] [facility] [address] [facility] [address] [facility] [place] [facility] LIPID PANEL FASTING TRIGLYCERID E [MASS/VOLUM E] IN SERUM OR PLASMA 100 mg/dL 0 - 150 06/04 Specimen Type: SERUM No comment entered. Ordering Provider: MARCE SERRANO Report Released Date/Time: Mar 11, 2023 04:45 PM Reporting Lab: [facility] [place] [facility] [address] [facility] [address] Performing Lab: [facility] [place] [place] [facility] [address] [facility] [address] [facility] [place] [facility] LIPID PANEL FASTING CHOLESTEROL IN LDL [MASS/VOLUM E] IN SERUM OR PLASMA BY CALCULATION 118 mg/dL 0 - 129 06/04 Specimen Type: SERUM No comment entered. Ordering Provider: MARCE SERRANO Report Released Date/Time: Mar 11, 2023 04:45 PM Reporting Lab: [facility] [place] [facility] [address] [facility] [address] Performing Lab: [facility] [place] [facility] [address] [facility] [address] [facility] [place] [facility] LIPID PANEL FASTING CHOLESTEROL .TOTAL/CHOL ESTEROL IN HDL [MASS RATIO] IN SERUM OR PLASMA 3.1 06/04 Specimen Type: SERUM No comment entered. Ordering Provider: MARCE SERRANO Report Released Date/Time: Mar 11, 2023 04:45 PM Reporting Lab: [facility] [place] [facility] [address] [facility] [address] Performing Lab: [facility] [place] [facility] [address] [facility] [address] [facility] [place] [facility] LIPID PANEL FASTING CHOLESTEROL IN HDL [MASS/VOLUM E] IN SERUM OR PLASMA 66 mg/dL 40 - 60 06/04 H Specimen Type: SERUM No comment entered. Ordering Provider: MARCE SERRANO Report Released Date/Time: Mar 11, 2023 04:45 PM Reporting Lab: [facility] [place] [facility] [address] [facility] [address] Performing Lab: [facility] [place] [facility] [address] [facility] [address] [facility] [place] [facility] Vital Signs Combined list of inpatient and outpatient Vital Signs from Department of Defense and Veterans Affairs, ranging from 12 months to all on record, depending upon the facility. Vital Sign Value Date Comments Source SYSTOLIC BLOOD PRESSURE 131 12/24/19 24 15:11:09 [facility] [place] [facility] DIASTOLIC BLOOD PRESSURE 85 024 15:11:09 [facility] [place] [facility] PULSE OXIMETRY 97 12/24/2023 15:11:09 [facility] [place] [facility] WEIGHT 191 12/24/2023 15:11:09 [facility] [place] [facility] BMI 29 kg/m2 12/24/2023 15:11:09 [facility] [place] [facility] PAIN 0 12/24/2023 15:11:09 [facility] [place] [facility] TEMPERATURE 98.3 12/24/2023 15:11:09 [facility] [place] [facility] PULSE 89 12/24/2023 15:11:09 [facility] [place] [facility] RESPIRATION 16 12/24/2023 15:11:09 [facility] [place] [facility] Encounters Combined list of: 1) Encounters from Department of Veterans Affairs facilities going backup to the last 18 months, not all VA inpatient encounters are included; 2) Encounters from the Department of Defense facilities going backup to 280 months. Location Location Details Encounter Type Encounter Number Reason For Visit Attending Provider ADM Date DC Date Status Disposition Source WBAM Hutchinson(Hear ing Conservat ion SRP) OUTPATIENT [id number] ELIECER Benavidez 05/01 Released w/o Limitations [facility](He aring Conserv ation SRP) [facility]inson(Hear ing Conservat ion SRP) OUTPATIENT [id number] DEMOB WHITE-FONT ML SALDIVAR 03/01 [facility] Limitations [facility]He aring Conserv ation SRP) [facility] Team B[facility] OUTPATIENT [id number] [facility] PHA-Romulo l bring pdf dated 02 December MARCELLE GARCIA 01/05 Released w/o Limitations [facility] [place] [facility] Outpatient Encounter [id number] 03/11 [facility] [place] [place] [facility] [place] [facility] PSYTX W PT W E/M 30 MIN [id number] Diagnos is: ICD-10- CM F43.12 Post-tr aumatic stress disorde r, chronic Salo MORFIN 03/26 [facility] [place] [place] [facility] [place] [facility] POS AIRWAY PRESSURE CPAP [id number] Diagnos is: ICD-10- CM G47.39 Other sleep apnea CARMELITA HAYES 03/26 [facility] [place] [facility] [place] [facility] Outpatient Encounter [id number] 03/27 [facility] [place] [facility] [place] [facility] Outpatient Encounter [id number] 04/11 [facility] [place] [place] [facility] PSYTX W PT W E/M 30 MIN [id number] Diagnos is: ICD-10- CM F43.12 Post-tr aumatic stress disorde r, chronic NAVJOT,P BRONSON B 04/23 [facility] [place] [place] [facility] [place] [facility] POS AIRWAY PRESSURE FILTER [id number] Diagnos is: ICD-10- CM G47.30 Sleep apnea, unspeci fied ST AMMICHEAL,CELESTINA E P 05/01 [facility] [place] [place] [facility] Outpatient Encounter [id number] Diagnos is: ICD-10- CM G47.33 Obstruc tive sleep apnea (adult) (pediat damion) LIONEL MARTINEZ 05/09 [facility] [place] [facility] PSYTX W PT W E/M 30 MIN [id number] Diagnos is: ICD-10- CM F43.12 Post-tr aumatic stress disorde r, chronic NAVJOT,P BRONSON B 05/20 [facility] [place] [place] [facility] [place] [facility] Outpatient Encounter [id number] 05/30 [facility] [place] [place] [facility] [place] [facility] OFFICE O/P EST MOD 30 MIN [id number] Diagnos is: ICD-10- CM F43.12 Post-tr aumatic stress disorde r, chronic AHMED,MOHA MMED JAWED 06/11 [facility] [place] [facility] [place] [facility] Outpatient Encounter [id number] 06/19 [facility] [place] [facility] [place] [facility] PSYTX W PT W E/M 30 MIN [id number] Diagnos is: ICD-10- CM F43.12 Post-tr aumatic stress disorde r, chronic Salo MORFIN BRONSON B 06/19 [facility] [place] [place] [facility] Outpatient Encounter [id number] 06/30 [facility] [place] [place] [facility] COLLJ & INTERPJ DATA EA 30 D [id number] Diagnos is: ICD-10- CM G47.30 Sleep apnea, unspeci fied ST AMMICHEAL,CELESTINA E P 06/30 [facility] [place] [place] [facility] PSYTX W PT W E/M 30 MIN [id number] Diagnos is: ICD-10- CM F43.12 Post-tr aumatic stress disorde r, chronic Salo MORFIN [facility] [place] [facility] Outpatient Encounter [id number] Diagnos is: ICD-10- CM G47.33 Obstruc tive sleep apnea (adult) (pediat damion) MIKAYLA JONES 08/07 [facility] Outpatient Encounter [id number] 08/07 [facility] [place] [facility] PSYTX W PT W E/M 30 MIN [id number] Diagnos is: ICD-10- CM F43.12 Post-tr aumatic stress disorde r, chronic Salo MORFIN BRONSON B 08/13 [facility] [place] [place] [facility] COLLJ & INTERPJ DATA EA 30 D [id number] Diagnos is: ICD-10- CM G47.30 Sleep apnea, unspeci fied ST AMMICHEAL,CELESTINA E P 08/25 [facility] [place] [place] PSYTX W PT W E/M 30 MIN [id number] Diagnos is: ICD-10- CM F43.12 Post-tr aumatic stress disorde r, chronic Salo MORFIN BRONSON B 09/09 [facility] [place] [place] PSYTX W PT W E/M 30 MIN [id number] Diagnos is: ICD-10- CM F43.12 Post-tr aumatic stress disorde r, chronic Salo MORFIN BRONSON B 10/08 [facility] [place] [place] PSYTX W PT W E/M 30 MIN [id number] Diagnos is: ICD-10- CM F43.12 Post-tr aumatic stress disorde r, chronic Salo MORFIN BRONSON B 11/05 [facility] [place] Out[facility] Encounter [id number] 12/02 [facility] [place] [place] Encounter [id number] 12/04 [facility] [place] [place] PSYTX W PT W E/M 30 MIN [id number] Diagnos is: ICD-10- CM F43.12 Post-tr aumatic stress disorde r, chronic Salo MORFIN BRONSON B 12/09 [facility] [place] [place] Out[facility] Encounter [id number] 12/22 [facility] [place] [place] [facility] OFFICE O/P EST MOD 30 MIN [id number] 1. Diagnos is: ICD-10- CM G47.30 Sleep apnea, unspeci fied FURCOLO,TI NA 12/23 [facility] [place] [place] PSYTX W PT W E/M 30 MIN [id number] Diagnos is: ICD-10- CM F43.12 Post-tr aumatic stress disorde r, chronic Salo MORFINA B 12/30 [facility] [place] PSYTX W PT W E/M 30 MIN [id number] 1. Diagnos is: ICD-10- CM F43.12 Post-tr aumatic stress disorde r, chronic Salo MORFIN B 02/08 [facility] [place] [place] PSYTX W PT W E/M 30 MIN [id number] Diagnos is: ICD-10- CM F90.9 Attenti on-defi cit hyperac tivity disorde r, unspeci fied type Salo MORFIN B 03/08 [facility] [place] [place] [facility] Outpatient Encounter [id number] 03/12 [facility] [place] [place] [facility] OFFICE O/P NEW LOW 30 MIN [id number] Diagnos is: ICD-10- CM G47.33 Obstruc tive sleep apnea (adult) (pediat damion) MARIE AUGUSTE CTORIA J 03/15 [facility] PSYTX W PT W E/M 30 MIN [id number] 1. Diagnos is: ICD-10- CM F43.12 Post-tr aumatic stress disorde r, chronic Salo MORFIN BRONSON B 04/07 [facility] [place] En[facility] [id number] 04/23 [facility] [place] [place] PSYTX W PT W E/M 30 MIN [id number] Diagnos is: ICD-10- CM F43.12 Post-tr aumatic stress disorde r, chronic Salo MORFIN BRONSON B 05/05 [facility] [place] [place] 60 [id number] Diagnos is: ICD-10- CM F33.8 Other recurre nt depress juan manuel disorde rs CRISTINO RILEY SSICA E 05/31 [facility] En[facility] [id number] 06/03 [facility] [place] En[facility] [id number] MUNIRA CRUZ P 06/11 [facility] HEARING AID XM&SLCTN BINAURL [id number] Diagnos is: ICD-10- CM H90.3 Sensori neural hearing loss, bilater Mila Dickinson E 06/14 [facility] En[facility] [id number] 06/24 [facility] En[facility] [id number] 06/28 [facility] [place] 40 [id number] Diagnos is: ICD-10- CM F33.8 Other recurre nt depress juan manuel disorde rs CRISTINO RILEY SSICA E 08/05 [facility] En[facility] [id number] 08/11 [facility] [place] [place] [facility] CONFORMITY EVALUATION [id number] Diagnos is: ICD-10- CM Z46.1 Encount er for fitting and adjustm ent of hearing aid FARZANA ORTEZ 08/16 [facility] [place] [place] [facility] Outpatient Encounter [id number] 08/19 [facility] [place] [place] [facility] Outpatient Encounter [id number] 09/07 [facility] [place] [facility] Procedures Combined list of: 1) Procedures from Department of Veterans Affairs facilities going back up to thelast 18 months, not all [place] non-surgical procedures are included; 2) All procedures from the Department of Defense facilities. Procedure Procedure Type Code Date Perfomer Comments Sour e Screening Test Of Visual Acuity, Quantitative, Bilateral Screening Test Of Visual Acuity, Quantitative, Bilateral 96360 01/16/2015 MARCELLE GARCIA [facility] Testing Audiometry Group Testing 33936 03/01/2011 ML AMBROSE [facility] Testing [facility] Testing 77958 05/01/2010 ELIECER ALVAREZ Do[facility] SCREENING TEST OF VISUAL ACUITY, QUANTITATIVE, BILATERAL 01/16/2015 [facility] AUDIOMETRIC TESTING OF GROUPS 03/01/2011 [facility] SKIN TEST; TUBERCULOSIS, INTRADERMAL 03/01/2011 [facility] COLLECTION OF VENOUS BLOOD BY VENIPUNCTURE 03/01/2011 [facility] RABIES VACCINE, FOR INTRAMUSCULAR USE 07/24/2010 [facility] YELLOW FEVER VACCINE, LIVE, FOR SUBCUTANEOUS USE 07/16/2010 [facility] SCREENING TEST OF VISUAL ACUITY, QUANTITATIVE, BILATERAL 07/16/2010 [facility] ANTHRAX VACCINE, FOR SUBCUTANEOUS OR INTRAMUSCULAR USE 06/11/2010 [facility] AUDIOMETRIC TESTING OF GROUPS 05/01/2010 [facility] SKIN TEST; TUBERCULOSIS, INTRADERMAL 05/01/2010 [facility] COLLECTION OF VENOUS BLOOD BY VENIPUNCTURE 05/01/2010 [facility] Social History Combined list of available smoking, tobacco, and other social history from Department of Defense and Veterans Affairs facilities. Social History Type Response Date Comment Sour e Tobacco smoking status NHIS VA-TOBACCO NEVER USED 06/11/2023 [facility] [place] [facility] History of tobacco use VA-TOBACCO NEVER USED 07/11/2022 [facility] History of tobacco use VA-TOBACCO NEVER USED 07/26/2021 [facility] History of tobacco use VA-TOBACCO NEVER USED 08/22/2020 [facility] History of tobacco use VA-TOBACCO NEVER USED 09/01/2019 [facility] History of tobacco use VA-TOBACCO NEVER USED 09/04/2018 [facility] History of tobacco use LIFETIME NON-TOBACCO USER 09/11/2017 [facility] History of tobacco use LIFETIME NON-TOBACCO USER 07/26/2016 [facility] History of tobacco use LIFETIME NON-TOBACCO USER 07/26/2015 [facility] History of tobacco use LIFETIME NON-TOBACCO USER 06/15/2014 [facility] [place] [facility] This section is an empty social history section. DoD Plan of Care List of future care activities from Department of Veterans Affairs facilities. Additional future care activities may be listed in the Assessment and Plan section. Date/Time Care Activity Care Activity Detail Facili ty 09/13/2024 AMBULATORY - NONE AMBULATORY - NONE [facility] [place] [facility]
--- OUTSIDE RECORDS SUMMARY | 2024-09-09 13:10 | XMS_ITS | Encounter Summary ---
Author Name [facility] Organization [facility] [place] Address [address] [place] [address] Care Team Providers Care Commercial Property Administrator Name Role Phone SHIRLEY VILLA Primary Care [...] section includes the information on record at [place] for the Encounter. Date/Time Encounter Type Encounter Description Reason Provider Source May 31, 2024 09:30 AM SYNCH AUDIO-VIDEO [place] [id number] [facility] - IND ICD-10-CM F33.8 Other recurrent depressive disorders IVONNE RILEY E Encounter Template Text not used by [place] Assessments - Encounter Diagnoses This section includes the primary and secondary diagnoses documented for the Encounter. Date/Time Primary/Secondary Diagnosis Diagnosis Name Provider Source May 31, 2024 09:34 PM PRIMARY Other recurrent depressive disorders IVONNE RILEY [facility] [place] [place] [facility] May 31, 2024 09:34 PM SECONDARY Alcohol abuse, in remission IVONNE RILEY [facility] May 31, 2024 09:34 PM SECONDARY Post-traumatic stress disorder, chronic IVONNE RILEY E [facility] Plan of Treatment: Future Appointments (+ 6 months) and Future Tests (+/- 45 days) The Plan of Treatment section includes future care activities for the patient from all [facility] This section includes future appointments and future orders which are active, pending or scheduled. Future Appointments This section includes appointments that were scheduled to occur 6 months from the date of the Encounter, up to a maximum of 20 appointments. The data comes from all [place] treatment facilities. Appointment Date/Time Appointment Type Appointme nt Facility Name Jun 03, 2024 10:40 AM [facility] Jun 14, 2024 03:00 PM AMBULATORY - [facility] Jun 24, 2024 09:00 AM [facility] Aug 05, 2024 09:00 AM [facility] Aug 11, 2024 01:00 PM [facility] Aug 16, 2024 09:00 AM AMBULATORY - [facility] Sep 13, 2024 10:30 AM AM[facility]UL[facility]ORY - N[facility] Social History: Smoking Status (Most current) and Tobacco Use (All prior to encounter date) This section includes the most current, and the historical, smoking and tobacco- related health factors from the [place] facility where the Encounter took place. Current Smoking Status This section includes the most current smoking, or tobacco-related health factor, from the [place] facility where the Encounter took place. Date/Time Current Smoking Status Comment [facility] Jun 11, 2023 03:00 PM VA-TOBACCO NEVER USED [facility] Tobacco Use History This section includes a history of the smoking, or tobacco-related health factors, that were collected on or before the date of the Encounter. The data comes from the [place] facility where the Encounter took place. Date/Time Smoking Status/Tobacco Use Comment F acility Jul 11, 2022 11:30 AM VA-TOBACCO NEVER USED [facility] [place] [facility] Jul 26, 2021 08:30 AM VA-TOBACCO NEVER USED [facility] [place] [facility] Aug 22, 2020 08:30 AM VA-TOBACCO NEVER USED [facility] [place] [facility] Sep 01, 2019 02:50 PM VA-TOBACCO NEVER USED [facility] [place] [facility] Sep 04, 2018 12:13 PM VA-TOBACCO NEVER USED [facility] [place] [facility] Sep 11, 2017 09:16 AM LIFETIME NON-TOBACCO USER [facility] [place] [facility] Jul 26, 2016 08:58 AM LIFETIME NON-TOBACCO USER [facility] [place] [facility] Jul 26, 2015 02:07 PM LIFETIME NON-TOBACCO USER [facility] [place] [facility] Jun 15, 2014 02:12 PM LIFETIME NON-TOBACCO USER [facility] [place] [facility] Encounter Notes: All associated encounter notes This section contains the clinical notes associated to the Encounter. Date/Time Encounter Note(s) Provider Source May 31, 2024 08:58 PM PSYCHIATRY CONSULT: [facility] TITLE: CONSULT REPORT/MENTAL HEALTH/PSYCHIATRY STANDARD TITLE: PSYCHIATRY CONSULT DATE OF NOTE: MAY 31, 2024@20:58 ENTRY DATE: MAY 31, 2024@20:58:54 AUTHOR: APOLINAR RILEY COSIGNER: URGENCY: STATUS: COMPLETED INITIAL PSYCHIATRIC EVALUATION Vet was identified using two forms of ID. CONNOR JONES is a 44yo WHITE MALE with a history of ARMY FROM Apr TO Mar REASON FOR CONSULT: transfer of care CC: depression, focus, anxiety HPI: Business as an electrical systems engineer, enjoys, managing the contract. Born and raised in [place]. , 15yo daughter 19yo son, oldest [employer] 20. Reports he does a lot of meditating, listening to calming sounds, likes to wash dishes as a meditation to cope with anxiety and depression. This might be a little worse in context of daughter struggling with MH issues. Depression and anxiety interfere with function-- it more difficult to function, just wants to sleep, feels exhausted. Mood is sad , not sure if he feels depressed or not. Feels sad most days, lasting most of each day. Has some anhedonia. The mood causes him to not care at work, and is behind on things--it compromises the job. Has initial and middle insomnia, frequent awakenings. He has a CPAP but he moves around so it is difficult to use regularly. He is recommended to use a mouth guard but has dental problems which prevent this. The CPAP has not seemed particularly helpful. He wakes up at 2am every night. Goes to bed at 10am and gets out of bed at 4am. Also has +nightmares sporadically which wake him up. Cannot remember any meds that have been helpful. Started Adderall for memory loss , not being able to focus, to sustain the amount of work he does. Dx'd with ADHD at some point, can't remember if he did memory testing. Bupropion seemed helpful for mood, not sure why dosed IR. CURRENT MEDICATIONS Active Outpatient Medications (including Supplies): AMPHETAMINE/DEXTROAMPHET 20MG SA CAP TAKE ONE CAPSULE BY ACTIVE MOUTH THREE TIMES A DAY Indication: FOR ADHD WITH HYPERACTIVITY BUPROPION HCL 100MG TAB TAKE ONE AND ONE-HALF TABLETS BY ACTIVE MOUTH TWICE DAILY (TAKE SECOND DOSE BY 5PM) Indication: FOR DEPRESSION PRAZOSIN HCL 1MG CAP TAKE ONE CAPSULE BY MOUTH AT BEDTIME ACTIVE FOR Indication: NIGHTMARES Non-VA TESTOSTERONE CYP 200MG/ML 1ML IN OIL 0.5ML ACTIVE (100MG) INTRAMUSCULARLY ONCE A WEEK 4 Total Medications SUPPLEMENTS: None ALLERGIES: Patient has answered NKA SUBSTANCE USE: Alcohol: 1 cup wine daily and socially. It was a problem in the past. MJ: Cannabis, tried to use it for PTSD sx. Has been trying different things. Using a tincture but not every day. Tobacco: None Caffeine: 1 cup Opiates: denies Cocaine: denies Other: PAST PSYCHIATRIC HISTORY: Grew up in [place], 2 parents household, no trauma, 2 siblings are SW mental health specialists. 1 brother. Sami was first language, parents from [place]. Introvert, has always been quiet, but managed to get in trouble at school, was suspended in 3-4 grade. High school-not taking education seriously, did not do well, barely passed. National guard in 1998 to pay for college. 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 Master's in business. No sign of mental health issues in teenage years. All mental health symptoms started with trauma. H/o alcohol use disorder following service, now in remission. [place] in [place]. Mood is constant low, not in episodes. No AH. No Yaneth. Has occasional VH-- bombs underneath cars Has done some therapy but no intensive PTSD work. ADHD dx is from an unclear source--prior testing 2017 : Mr. 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 He reported problems with forgetfulness at work started 3-4 years ago and had worsened over time. The denied having any major changes in his health or life during this time. Mr. Connor Jones' pattern of performance on multiple tests sensitive to effort and motivation raised concern that he was not able to adequately sustain motivation throughout the testing session, and that any test scores would likely underestimate his actual abilities and could not be considered valid. Thus, an abbreviated evaluation was conducted that focused on a psychosocial interview and evaluation of psychological symptoms. The 's actual level of cognitive ability is unclear at this time. On a measure of personality functioning and coping style, his response pattern generated an invalid profile similar to individuals who did not attend appropriately in responding to test items. Test results were thought to be invalid and no clinical interpretation could be provided. Variable or inadequate effort on cognitive/psychological testing can result from a variety of factors, including impaired sleep or boredom, heightened or acute psychiatric distress, a desire to have perceived cognitive deficits identified, careless or random responding, secondary gain, or other reasons. Nothing is suggestive of ADHD in hx--no clear childhood sx, graduated with masters 3.8 GPA, no academic difficulties. MEDICAL HISTORY Active Problem Exposure to potentially hazardous s 08/27/2023 WANDA WELCH Sleep apnea G47.30 08/08/2023 LEW SERRANO JAWED Bilateral chronic pain of feet M79. 03/25/2022 STEFANIE SERRANOAMMED JAWED Pain in left knee M25.569 02/03/2020 SHIREEN SERRANOED JAWED Low back pain M54.50 04/25/2021 SHIREEN SERRANOED JAWED Tinnitus H93.13 11/11/2018 LEW SERRANO JAWED Erectile dysfunction (SNOMED CT 860 03/25/2022 LEW SERRANO JAWED Posttraumatic stress disorder F43.1 03/25/2023 DEVIN WEN Attention deficit without hyperacti 03/25/2023 KEIVN MORFIN LABS: LAB RESULTS LAST 4320 HRS - NONE FOUND Collection DT Spec TSH 06/04/2023 08:04 SERUM 1.87 LIPID PANEL FASTING; SERUM Jhoana. Date: 06/04/23 08:04 09/11/22 08:18 Test Name Result Result Units Range CHOLESTEROL 204 H 223 H mg/dL <7 - 199 TRIGLYCERIDE 100 122 mg/dL 0 - 150 LDL calculated 118 143 H mg/dL 0 - 129 CHOL/HDL 3.1 4.0 - HDL CHOLESTEROL 66 H 56 mg/dL 40 - 60 Interpretation for TRIGLYCERIDE: Triglyceride & cLDL results may be affected by nonfasting state. Interpretation for LDL calculated: Evaluation of cardiovascular risk is based on the following range of values: Desirable: <100 mg/dL Low risk: 100-129 mg/dL Borderline high: 130-159 mg/dL High:160-189 mg/dL Very high: > or = 190 mg/dL LDL calculated using Friedewald formula. Interpretation for LDL DIRECT: Evaluation of cardiovascular risk is based on the following range of values: Desirable: <100 mg/dL Low risk: 100-129 mg/dL Borderline high: 130-159 mg/dL High:160-189 mg/dL Very high: > or = 190 mg/dL FAMILY PSYCHIATRIC HISTORY Need to review SOCIAL HISTORY See above. MENTAL STATUS EXAM: Awake, alert, cooperative, well groomed. Pleasant, socially appropriate. No abnormal movements seen via video. Speech nml r/r/r/v/p Mood dysphoric sad Affect: mildly constricted, but able to smile socially Thought Process Linear Thought Content: No delusions. Not hopeless SI/HI: Denies SI, active or passive. Future oriented. No AH/VH a/ox3 I/J fair ASESSMENT 44yo father of 3, works in engineering as an regional operations director, h/o trauma, PTSD, depression, anxiety. No prior admissions or suicide attempts. Has been maintained on a stimulant. DIAGNOSIS I. MDD II. PTSD II. Alcohol use disorder in remission DIFFERENTIAL DIAGNOSIS -reassess ADHD, dx is unclear, no supporting data. Will need to review hx more with vet. It seems possible that underlying depression/PTSD may be a source of cognitive issues--not well treated on Adderall -wonder if high dose Adderall is worsening sleep, along with bupropion. PLAN -continue Adderall 20mg TID for now. Will likely lower/stop this in the near future and focus more on treating depression -cont bupropion 150mg BID--will need to review the chart in detail and reassess the efficacy/dosing. Not sure why immediate release is used, audrey given h/o alcohol use disorder FOLLOW UP IN CLINIC: 4 weeks TIME SPENT FACE TO FACE: 40m TOTAL TIME INCLUDING CHART REVIEW AND DOCUMENTATION: 60m SUICDE RISK ASSESSMENT: RISK ASSESSMENT: Suicide/Homicide Risk Assessment: Chronic Risk Factors: [] history of suicide attempt [x] Chronic mental illness [x} Substance use disorder [] Chronic Pain [] Gender [] Age [] Race [] Transgender [} Chronic Medical Problems Acute Risk Factors: [ ]suicidal/homicidal ideation [ ]suicidal/homicidal intent [ ]suicidal/homicidal plan [ ]recent suicidal/homicidal behavior [ ]recent psychiatric admission [ ]hopelessness, lack of purpose or meaning [] Feeling Trapped [] Social withdrawal [] Impulsive, risk taking behaviors []High anxiety/akathisia [x]Insomnia [] Rage/anger [x] Depression, Yaneth, Psychosis or Mixed State [ ]Current substance use problems [ ]minimal support [ ]Recent Personal Loss [ ]recent deployment [ ]mental status abnormalities [ ]dementia [ ]access to lethal means [] Homelessness [] Unemployment [ ]relationship problems or pending divorce [ ](other): Protective Factors: [ x]absence of suicidal/homicidal ideation, intent, plan, or behaviors []absence of substance use problems []strong support system [x ]responsibility for family, children, or pets [x ]future oriented [ x]help-seeking. [x ]positive therapeutic relationship [x ]medication compliant [ ](other): Based on risk and protective factors, the patient is considered to be at low imminent and low/moderate chronic risk for suicide /danger to others at the time of this evaluation. /kwadwo/ APOLINAR RILEY PSYCHIATRIST Signed: 05/31/2024 21:35 APOLINAR RILEY [facility] [place] [facility] May 31, 2024 09:36 AM PSYCHIATRY NOTE: LOCAL TITLE: PSYCHIATRY NOTE STANDARD TITLE: PSYCHIATRY NOTE DATE OF NOTE: MAY 31, 2024@09:36 ENTRY DATE: MAY 31, 2024@09:37 AUTHOR: APOLINAR RILEY EXP COSIGNER: URGENCY: STATUS: COMPLETED PSYCHIATRY NOTE Has ADDENDA INITIAL PSYCHIATRIC EVALUATION Vet was identified using two forms of ID. 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 Born and raised in [place]. , 15yo daughter 19yo son, oldest [employer] 20. Reports he does a lot of meditating, listening to calming sounds, likes to wash dishes as a meditation. To cope with anxiety and depression the usual. This might be a little worse in context of daughter struggling with MH issues. Makes it more difficult to function, just wants to sleep, feels exhausted. Mood is sad , not sure if he feels depressed or not. Feels sad most days, lasting most of each day. Has some anhedonia. The mood causes him to not care at work, and is behind on things--it compromises the job. Has initial and middle insomnia, frequent awakenings. He has a CPAP but he moves around so it is difficult to use reguarly. He is recommended to use a mouth guard but has dental problems which prevent this. The CPAP has not seemed particularly helpful. He wakes up at 2am every night. Goes to bed at 10am and gets out of bed at 4am. Also has +nightmares sporadically which wake him up. Cannot remember any meds that have been helpful. Started Adderall for memory loss , not being able to focus, to sustain the amont of work he does. Dx'd with ADHD at some point, can't remember if he did memory testing. Bupropion seemed helpful for mood, not sure why dosed IR. CURRENT MEDICATIONS Active Outpatient Medications (including Supplies): AMPHETAMINE/DEXTROAMPHET 20MG SA CAP TAKE ONE CAPSULE BY ACTIVE MOUTH THREE TIMES A DAY Indication: FOR ADHD WITH HYPERACTIVITY BUPROPION HCL 100MG TAB TAKE ONE AND ONE-HALF TABLETS BY ACTIVE MOUTH TWICE DAILY (TAKE SECOND DOSE BY 5PM) Indication: FOR DEPRESSION PRAZOSIN HCL 1MG CAP TAKE ONE CAPSULE BY MOUTH AT BEDTIME ACTIVE FOR Indication: NIGHTMARES Non-VA TESTOSTERONE CYP 200MG/ML 1ML IN OIL 0.5ML ACTIVE (100MG) INTRAMUSCULARLY ONCE A WEEK 4 Total Medications SUPPLEMENTS: None ALLERGIES: Patient has answered NKA SUBSTANCE USE: Alcohol: 1 cup wine daily and socially. It was a problem in the past. MJ: Cannabis, tried to use it for PTSD sx. Has been trying different things. Using a tincture but not every day. Tobacco: None Caffeine: 1 cup Opiates: Cocaine: Other: PAST PSYCHIATRIC HISTORY: Grew up in [place], 2 parents household, no trauma, 2 siblings are SW mental health specialists. 1 brother. Sami was first language, parents from [place]. Introvert, has always been quiet, but managed to get in trouble at school, was suspended in 3-4 grade. HIgh school-not taking education seriously, did not do well, barely passed. National guard in 1998 to pay for college. 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 Masters in business. No sign of mental health issues in teenage years. Started with trauma. First in treatment in 2016. Mood is constant low, not in episodes. No AH. No Yaneth. Has occasional VH-- bombs underneath. Has done some therapy but no intensive PTSD work. MEDICAL HISTORY Active Problem Exposure to potentially hazardous s 08/27/2023 WANDA WELCH Sleep apnea G47.30 08/08/2023 LEW SERRANO JAWED Bilateral chronic pain of feet M79. 03/25/2022 SHIREEN SERRANOED JAWED Pain in left knee M25.569 02/03/2020 MAGGIE,STEFANIEAMMED JAWED Low back pain M54.50 04/25/2021 STEFANIE SERRANOAMMED JAWED Tinnitus H93.13 11/11/2018 SHIREEN SERRANOED JAWED Erectile dysfunction (SNOMED CT 860 03/25/2022 SHIREEN SERRANOED JAWED Posttraumatic stress disorder F43.1 03/25/2023 DEVIN WEN Attention deficit without hyperacti 03/25/2023 KEVIN MORFIN LABS: LAB RESULTS LAST 4320 HRS - NONE FOUND Collection DT Spec TSH 06/04/2023 08:04 SERUM 1.87 LIPID PANEL FASTING; SERUM Jhoana. Date: 06/04/23 08:04 09/11/22 08:18 Test Name Result Result Units Range CHOLESTEROL 204 H 223 H mg/dL <7 - 199 TRIGLYCERIDE 100 122 mg/dL 0 - 150 LDL calculated 118 143 H mg/dL 0 - 129 CHOL/HDL 3.1 4.0 - HDL CHOLESTEROL 66 H 56 mg/dL 40 - 60 Interpretation for TRIGLYCERIDE: Triglyceride & cLDL results may be affected by nonfasting state. Interpretation for LDL calculated: Evaluation of cardiovascular risk is based on the following range of values: Desirable: <100 mg/dL Low risk: 100-129 mg/dL Borderline high: 130-159 mg/dL High:160-189 mg/dL Very high: > or = 190 mg/dL LDL calculated using Friedewald formula. Interpretation for LDL DIRECT: Evaluation of cardiovascular risk is based on the following range of values: Desirable: <100 mg/dL Low risk: 100-129 mg/dL Borderline high: 130-159 mg/dL High:160-189 mg/dL Very high: > or = 190 mg/dL FAMILY PSYCHIATRIC HISTORY SOCIAL HISTORY MENTAL STATUS EXAM: Awake, alert, cooperative, well groomed Speech nml r/r/r/v/p Mood euthymic Affect: reactive, appropriate Thought Process Linear Thought Content: No delusions SI/HI: Denies No AH/VH a/ox3 I/J fair ASESSMENT DIAGNOSIS DIFFERENTIAL DIAGNOSIS PLAN REFILLS/COVERAGE FOLLOW UP IN CLINIC TIME SPENT FACE TO FACE: TOTAL TIME INCLUDING CHART REVIEW AND DOCUMENTATION: SUICDE RISK ASSESSMENT: RISK ASSESSMENT: Suicide/Homicide Risk Assessment: Chronic Risk Factors: [] history of suicide attempt [] Chronic mental illness [} Substance use disorder [] Chronic Pain [] Gender [] Age [] Race [] Transgender [} Chronic Medical Problems Acute Risk Factors: [ ]suicidal/homicidal ideation [ ]suicidal/homicidal intent [ ]suicidal/homicidal plan [ ]recent suicidal/homicidal behavior [ ]recent psychiatric admission [ ]hopelessness, lack of purpose or meaning [] Feeling Trapped [] Social withdrawal [] Impulsive, risk taking behaviors []High anxiety/akathesia []Insomnia [] Rage/anger [] Depression, Yaneth, Psychosis or Mixed State [ ]Current substance use problems [ ]minimal support [ ]Recent Personal Loss [ ]recent deployment [ ]mental status abnormalities [ ]dementia [ ]access to lethal means [] Homelessness [] Unemployment [ ]relationship problems or pending divorce [ ](other): Protective Factors: [ ]absence of suicidal/homicidal ideation, intent, plan, or behaviors []absence of substance use problems []strong support system [ ]responsibility for family, children, or pets [ ]future oriented [ ]help-seeking. [ ]positive therapeutic relationship [ ]medication compliant [ ](other): Based on risk and protective factors, the patient is considered to be at low imminent and low chronic risk for suicide /danger to others at the time of this evaluation. Advised to contact me via call center or secure messaging for any questions or concerns between visits. Pt was reminded to call [phone] option 1 if in crisis, or to call 911 or go to nearest ED if risk of acute harm to self or others. The discussion with patient about treatments including medications involved shared decision making. The patient was educated about the rationale and plan for the psychiatric medications. Medication instructions were reviewed with the patient. Alternatives to treatment were discussed with the patient. The side effect profile of the psychiatric medications was reviewed with the patient. This also included discussion of potential drug interactions associated with psychiatric medication. The patient discussed/verbalized back the understanding of the medication, side effects, and the plan/instructions, and the patient asked good questions. The patient demonstrated reasonable understanding of the medication side effects and the above-mentioned issues. The benefits of psychiatric medications outweigh risks for this patient. The patient consents to medication treatment. For new medications prescribed, the vet was given a paper copy of the 's [employer] [facility] information sheet which includes uses, instructions, cautions, and common and serious side effects. I encouraged the to call or message me or to come to open access if the does not like the effect of psychiatric medication or if has side effects. Medication Reconciliation: Outpatient: Has the patient been [...] with a VA or non-VA provider. /kwadwo/ APOLINAR RILEY PSYCHIATRIST Signed: 05/31/2024 21:35 07/15/2024 ADDENDUM STATUS: COMPLETED Note signed early in error. Plan: Continue current medication regimen and continue next visit with full psychiatric evaluation. Suicide risk currently seems low. /kwadwo/ APOLINAR RILEY PSYCHIATRIST Signed: 07/15/2024 12:45 APOLINAR RILEY [facility]
--- OUTSIDE RECORDS SUMMARY | 2024-09-09 13:10 | XMS_ITS | Encounter Summary ---
Author Name [facility] [place] Organization [facility] [facility] [place] Address [address] [place] [id number] Care Team Providers Care Shift Boss Name Role Phone SHIRLEY VILLA Primary Care [...] section includes the information on record at [place] for the Encounter. Date/Time Encounter Type Encounter Description Reason Pro vider Source Dec 03, 2023 10:30 AM Outpatient Encounter MENTAL [facility] [[email or web address]] Encounter Template Text not used by [place] Plan of Treatment: Future Appointments (+ 6 months) and Future Tests (+/- 45 days) The Plan of Treatment section includes future care activities for the patient from all [place] treatmentfacilities. This section includes future appointments and future orders which are active, pending or scheduled. Future Appointments This section includes appointments that were scheduled to occur 6 months from the date of the Encounter, up to a maximum of 20 appointments. The data comes from all [place] treatment facilities. Appointment Date/Time Appointment Type Appointme nt Facility Name Dec 10, 2023 11:00 AM AMBULATORY - PSYCHIATRY [facility] Dec 24, 2023 03:00 PM AM[facility]ULATORY [facility]IC[facility] [place] [facility] Dec 31, 2023 01:00 PM AMBULATORY - PS[facility]CHIATRY [facility] [place] [facility] Feb 09, 2024 10:30 AM AMBULATORY - PS[facility]CHIATRY [facility] [place] [facility] Mar 08, 2024 10:30 AM AMBULATORY - PS[facility]CHIATRY [facility] [place] [facility] Mar 15, 2024 10:30 AM AMBULATORY - NONE [facility] [place] [facility] Apr 07, 2024 11:30 AM AMBULATORY - PS[facility]CHIATRY [facility] [place] [facility] May 05, 2024 01:30 PM AMBULATORY - PS[facility]CHIATRY [facility] [place] [facility] May 31, 2024 09:30 AM AMBULATORY - PS[facility]CHIATRY [facility] [place] [facility] Jun 03, 2024 10:40 AM AMBULATORY - NONE [facility] [place] [facility] Active, Pending, and Scheduled Orders This section includes a listing of several types of active, pending, and scheduled orders, including clinic medications orders, diagnostic test orders, procedure orders and consult orders; where the start date of the order is 45 days before the date of the Encounter or 45 days after the date of theEncounter. The data comes from all [place] treatment facilities. Test Date/Time Test Type Test Details Facility Name Dec 16, 2023 07:00 AM Laboratory - Chemistry Order FENTANYL SCREEN PANEL URINE (DRUG) SP [facility] [place] [facility] Dec 16, 2023 07:00 AM Laboratory - Chemistry Order COCAINE SCREEN PANEL URINE (DRUG) SP [facility] [place] [facility] Dec 16, 2023 07:00 AM Laboratory - Chemistry Order OPIATES SCREEN PANEL URINE (DRUG) SP [facility] [place] [facility] Dec 16, 2023 07:00 AM Laboratory - Chemistry Order ALCOHOL, ETHYL URINE PANEL URINE (DRUG) SP ONCE [facility] [place] [facility] Dec 16, 2023 07:00 AM Laboratory - Chemistry Order AMPHETAMINES SCREEN PANEL URINE (DRUG) SP [facility] [place] [facility] Dec 16, 2023 07:00 AM Laboratory - Chemistry Order OXYCODONE SCREEN PANEL URINE (DRUG) SP [facility] [place] [facility] Dec 16, 2023 07:00 AM Laboratory - Chemistry Order BENZODIAZEPINES SCREEN PANEL URINE (DRUG) SP [facility] [place] [facility] Dec 16, 2023 07:00 AM Laboratory - Chemistry Order CANNABINOIDS SCREEN PANEL URINE (DRUG) SP [facility] [place] [facility] Social History: Smoking Status (Most current) and Tobacco Use (All prior to encounter date) This section includes the most current, and the historical, smoking and tobacco- related health factors from the [place] facility where the Encounter took place. Current Smoking Status This section includes the most current smoking, or tobacco-related health factor, from the [place] facility where the Encounter took place. Date/Time Current Smoking Status Comment Facil ity Jun 11, 2023 03:00 PM VA-TOBACCO NEVER USED [facility] [place] [facility] Tobacco Use History This section includes a history of the smoking, or tobacco-related health factors, that were collected on or before the date of the Encounter. The data comes from the [place] facility where the Encounter took place. Date/Time Smoking Status/Tobacco Use Comment F acility Jul 11, 2022 11:30 AM VA-TOBACCO NEVER USED [facility] [place] [facility] Jul 26, 2021 08:30 AM VA-TOBACCO NEVER USED [facility] [place] [facility] Aug 22, 2020 08:30 AM VA-TOBACCO NEVER USED [facility] [place] [facility] Sep 01, 2019 02:50 PM VA-TOBACCO NEVER USED [facility] [place] [facility] Sep 04, 2018 12:13 PM VA-TOBACCO NEVER USED [facility] [place] [facility] Sep 11, 2017 09:16 AM LIFETIME NON-TOBACCO USER [facility] [place] [facility] Jul 26, 2016 08:58 AM LIFETIME NON-TOBACCO USER [facility] [place] [facility] Jul 26, 2015 02:07 PM LIFETIME NON-TOBACCO USER [facility] [place] [facility] Jun 15, 2014 02:12 PM LIFETIME NON-TOBACCO USER [facility] [place] [facility] Encounter Notes: All associated encounter notes This section contains the clinical notes associated to the Encounter. Date/Time Encounter Note(s) Provider Source Dec 04, 2023 10:37 PM ACCOUNTING OF DISCLOSURES NOTE: LOCAL TITLE: STATE PRESCRIPTION DRUG MONITORING PROGRAM STANDARD TITLE: ACCOUNTING OF DISCLOSURES NOTE DATE OF NOTE: DEC 04, 2023@22:37:37 ENTRY DATE: DEC 04, 2023@22:37:37 AUTHOR: JANNA MORFIN EXP COSIGNER: URGENCY: STATUS: COMPLETED This PDMP query was submitted by Janna Morfin [facility]. The clinical justification for this PDMP query is to review controlled substances prescribed outside of the [facility], and any additional information that may become available, as an important component of standard clinical care, and in accordance with [facility] policy. Patient information was shared with the PDMP Appriss [place]. Prescription(s) filled outside the VA in the last 90 days are noted. However, they do not raise significant safety concerns and do not influence the treatment plan at this time. Gets testosterone from community provider /seda MORFIN RN,MSN,PSYCH N.P., STAFF CLINICAL NURSE SPECIALIST Signed: 12/04/2023 22:37 JANNA MORFIN [place] [facility] Dec 04, 2023 10:34 PM ADDENDUM: LOCAL TITLE: Addendum STANDARD TITLE: ADDENDUM DATE OF NOTE: DEC 04, 2023@22:34:56 ENTRY DATE: DEC 04, 2023@22:34:56 AUTHOR: JANNA MORFIN EXP COSIGNER: URGENCY: STATUS: COMPLETED missed his appt, calls today about his amphetamines. [facility] was asked to reschedule him as soon as possible. bridge supply of meds entered for 10 days. /seda MORFIN RN,MSN,PSYCH N.P., STAFF CLINICAL NURSE SPECIALIST Signed: 12/04/2023 22:36 Receipt Acknowledged By: 12/05/2023 14:22 /kwadwo/ PAULINE WOO [employer] REPRESENTATIVE ====== --- Original Document --- 12/03/23 APPOINTMENT NO SHOW: Patient Name: KORINA JONES Patient SSN: [id number] Date and time of Appointment No show : 12/03/23 10:30 PATIENT PHONE - [phone] PHONE NUMBER [CELLULAR] - Patient's medical record was reviewed. Follow-up actions were determined and initiated: Please check/complete as applies: [X]Telephoned Directly [ ]Re-scheduled for next available appt [X]Sent a N0-show letter ( must call for appointment) [ ]Other (Emergent/Overbook, etc.): Additional Comments: Future Clinic Visits 12/24/2023 15:00 CWM/NO/PACT EIGHT 03/15/2024 10:30 [facility] DENTAL DMD 4 AM 04/26/2024 10:30 [facility] DENTAL DMD 4 AM /es/ JANNA MORFIN RN,MSN,PSYCH N.P., STAFF CLINICAL NURSE SPECIALIST Signed: 12/03/2023 16:32 JANNA MORFIN [place] [facility] Dec 03, 2023 04:32 PM CLERICAL NOTE: LOCAL TITLE: APPOINTMENT NO SHOW STANDARD TITLE: CLERICAL NOTE DATE OF NOTE: DEC 03, 2023@16:32 ENTRY DATE: DEC 03, 2023@16:32:11 AUTHOR: JANNA MORFIN EXP COSIGNER: URGENCY: STATUS: COMPLETED APPOINTMENT NO SHOW Has ADDENDA Patient Name: KORINA JONES Patient SSN: [id number] Date and time of Appointment No show : 12/03/23 10:30 PATIENT PHONE - [phone] PHONE NUMBER [CELLULAR] - Patient's medical record was reviewed. Follow-up actions were determined and initiated: Please check/complete as applies: [X]Telephoned Directly [ ]Re-scheduled for next available appt [X]Sent a N0-show letter ( must call for appointment) [ ]Other (Emergent/Overbook, etc.): Additional Comments: Future Clinic Visits 12/24/2023 15:00 CWM/NO/PACT EIGHT 03/15/2024 10:30 [facility] DENTAL DMD 4 AM 04/26/2024 10:30 [facility] DENTAL DMD 4 AM /es/ JANNA MORFIN RN,MSN,PSYCH N.P., STAFF CLINICAL NURSE SPECIALIST Signed: 12/03/2023 16:32 12/04/2023 ADDENDUM STATUS: COMPLETED [place] missed his appt, calls today about his amphetamines. [facility] was asked to reschedule him as soon as possible. bridge supply of meds entered for 10 days. /kwadwo/ JANNA MORFIN RN,MSN,PSYCH N.P., STAFF CLINICAL NURSE SPECIALIST Signed: 12/04/2023 22:36 Receipt Acknowledged By: * AWAITING SIGNATURE * PAULINE WOO PAMELA B [facility] Dec 02, 2023 11:06 PM ACCOUNTING OF DISCLOSURES NOTE: LOCAL TITLE: STATE PRESCRIPTION DRUG MONITORING PROGRAM STANDARD TITLE: ACCOUNTING OF DISCLOSURES NOTE DATE OF NOTE: DEC 02, 2023@23:06:19 ENTRY DATE: DEC 02, 2023@23:06:19 AUTHOR: JANNA MORFIN EXP COSIGNER: URGENCY: STATUS: COMPLETED This PDMP query was submitted by Janna Morfin [facility]. The clinical justification for this PDMP query is to review controlled substances prescribed outside of the [facility], and any additional information that may become available, as an important component of standard clinical care, and in accordance with [facility] policy. Patient information was shared with the PDMP Appriss [place]. Prescription(s) filled outside the VA in the last 90 days are noted. However, they do not raise significant safety concerns and do not influence the treatment plan at this time. gets testosterone in the community /kwadwo/ JANNA MORFIN RN,MSN,PSYCH N.P., STAFF CLINICAL NURSE SPECIALIST Signed: 12/02/2023 23:06 JANNA MORFIN [facility]
--- OUTSIDE RECORDS SUMMARY | 2024-09-09 13:11 | XMS_ITS ---
Author Name [facility] [place] Organization [facility] [place] [facility] [place] Address [address] [place] [address] Care Team Providers Care Marble Rubber Name Role Phone SHIRLEY VILAL Primary Care Provider Unavailabl e Insurance Providers: [...] section includes the information on record at [place] for the Encounter. Date/Time Encounter Type Encounter Description Reason Provider Source Aug 05, 2024 09:00 AM SYNCH AUDIO-VIDEO EST [facility] ICD-10-CM F33.8 Other recurrent depressive disorders IVONNE RILEY Tanesha Encounter Template Text not used by [place] Assessments - Encounter Diagnoses This section includes the primary and secondary diagnoses documented for the Encounter. Date/Time Primary/Secondary Diagnosis Diagnosis Name Provider Source Aug 06, 2024 07:12 PM PRIMARY Other recurrent depressive disorders CANDELARIO RILEY E [place] [facility] [place] [facility] Aug 06, 2024 07:12 PM SECONDARY Attention-deficit hyperactivity disorder, unspecified type CANDELARIO RILEY E [place] [facility] [place] [facility] Aug 06, 2024 07:12 PM SECONDARY Post-traumatic stress disorder, chronic CANDELARIO RILEY CA E [facility] Plan of Treatment: Future Appointments (+ 6 months) and Future Tests (+/- 45 days) The Plan of Treatment section includes future care activities for the patient from all [place] treatmentfacilities. This section includes future appointments and future orders which are active, pending or scheduled. Future Appointments This section includes appointments that were scheduled to occur 6 months from the date of the Encounter, up to a maximum of 20 appointments. The data comes from all [place] treatment facilities. Appointment Date/Time Appointment Type Appointme nt Facility Name Aug 11, 2024 01:00 PM AMBULATORY - REHAB MEDICIN E [facility] Aug 16, 2024 09:00 AM AMBULATORY - REHAB MEDICIN E [facility] Sep 13, 2024 10:30 AM AMBULATORY - NONE [facility] Dec 28, 2024 08:00 AM AMBULATORY - MEDICINE [facility] Active, Pending, and Scheduled Orders This section includes a listing of several types of active, pending, and scheduled orders, including clinic medications orders, diagnostic test orders, procedure orders and consult orders; where the start date of the order is 45 days before the date of the Encounter or 45 days after the date of theEncounter. The data comes from all [facility]. Test Date/Time Test Type Test Details Facility Name Aug 19, 2024 02:49 PM Consult Order COMMUNITY CARE-COLONOSCOPY SCREENING Cons Sand Screener's Choice [facility] Social History: Smoking Status (Most current) and Tobacco Use (All prior to encounter date) This section includes the most current, and the historical, smoking and tobacco- related health factors from the [place] facility where the Encounter took place. Current Smoking Status This section includes the most current smoking, or tobacco-related health factor, from the [place] facility where the Encounter took place. Date/Time Current Smoking Status Comment Facil ity Jun 11, 2023 03:00 PM [place]-TOBACCO NEVER USED [facility] Tobacco Use History This section includes a history of the smoking, or tobacco-related health factors, that were collected on or before the date of the Encounter. The data comes from the [place] facility where the Encounter took place. Date/Time Smoking Status/Tobacco Use Comment F acmio Jul 11, 2022 11:30 AM VA-TOBACCO NEVER USED [facility] [place] [facility] Jul 26, 2021 08:30 AM VA-TOBACCO NEVER USED [facility] [place] [facility] Aug 22, 2020 08:30 AM VA-TOBACCO NEVER USED [facility] [place] [facility] Sep 01, 2019 02:50 PM VA-TOBACCO NEVER USED [facility] [place] [facility] Sep 04, 2018 12:13 PM VA-TOBACCO NEVER USED [facility] [place] [facility] Sep 11, 2017 09:16 AM LIFETIME NON-TOBACCO USER [facility] [place] [facility] Jul 26, 2016 08:58 AM LIFETIME NON-TOBACCO USER [facility] [place] [facility] Jul 26, 2015 02:07 PM LIFETIME NON-TOBACCO USER [facility] [place] [facility] Jun 15, 2014 02:12 PM LIFETIME NON-TOBACCO USER [facility] [place] [facility] Encounter Notes: All associated encounter notes This section contains the clinical notes associated to the Encounter. 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 No major changes in social situations. Feels tired all the time, sleep is a problem. Has initial insomnia as well as waking up in the middle of the night, only sleeps a few hours. This has been chronic. Does have nightmares which wake him up, sometimes shocks out of sleep. Sometimes gasps for air, feels like he is dying in the dreams. He has a CPAP but does not use it regularly--an issue with the machine, he was also given a dental device but has not been able to use that either due to dental cavities. Wonders if he can get a new machine, but has not been approved by the VA. Mood is emotionless, tired, zombie . Anhedonic. Down and depressed and hopeless every day. Appetite is low, forces self to eat. Weight has been steady. Lost a lot of weight last year and gained it back, now at average weight. Would like to feel less numb. Has feelings of worthlessness not good enough . Sometimes has some passive SI. Wish I was never born. They are just thoughts, what keeps me going is my jessica, I'm Anabaptist and believe in God. I just tell myself it's not real and move forward. CURRENT MEDICATIONS Active Outpatient Medications (including Supplies): AMPHETAMINE/DEXTROAMPHET 20MG SA CAP TAKE ONE CAPSULE BY ACTIVE MOUTH THREE TIMES A DAY NEXT FILL 08/26 Indication: FOR ADHD WITH HYPERACTIVITY BUPROPION HCL 100MG TAB TAKE ONE AND ONE-HALF TABLETS BY ACTIVE MOUTH TWICE DAILY (TAKE SECOND DOSE BY 5PM) Indication: FOR DEPRESSION FLUOXETINE HCL 10MG CAP TAKE ONE CAPSULE BY MOUTH ONCE ACTIVE DAILY FOR DEPRESSION AND ANXIETY Indication: MOOD, PTSD PRAZOSIN HCL 2MG CAP TAKE ONE CAPSULE BY MOUTH AT BEDTIME ACTIVE FOR Indication: [place] Non-VA TESTOSTERONE CYP 200MG/ML 1ML IN OIL 0.5ML ACTIVE (100MG) INTRAMUSCULARLY ONCE A WEEK 5 Total Medications SUPPLEMENTS: ALLERGIES: Patient has answered NKA MEDICAL HISTORY Active Problem Depressive disorder F33.8 05/31/2024 APOILNAR RILEY History of alcohol abuse F10.11 05/31/2024 APOLINAR RILEY Exposure to potentially hazardous s 08/27/2023 WANDA WELCH Sleep apnea G47.30 08/08/2023 LEW SERRANO JAWED Bilateral chronic pain of feet M79. 03/25/2022 SHIREEN SERRANOED JAWED Pain in left knee M25.569 02/03/2020 STEFANIE SERRANOAMMED JAWED Low back pain M54.50 04/25/2021 STEFANIE SERRANOAMMED JAWED Tinnitus H93.13 11/11/2018 LEW SERRANO JAWED Erectile dysfunction (SNOMED CT 860 03/25/2022 AHMED,MOHAMMED JAWED Posttraumatic stress disorder F43.1 03/25/2023 DEVIN WEN Attention deficit without hyperacti 03/25/2023 KEVIN MORFIN BMI: 29.1 SUBSTANCE USE: Alcohol: 1 cup wine daily and socially. It was a problem in the past. MJ: Cannabis, tried to use it for PTSD sx. Has been trying different things. Using a tincture but not every day. Tobacco: None Caffeine: 1 cup Opiates: denies Cocaine: denies Other: PAST PSYCHIATRIC HISTORY: Grew up in [place], 2 parents household, no trauma, 2 siblings are SW mental health specialists. 1 brother. [place] was first language, parents from [place]. Introvert, has always been quiet, but managed to get in trouble at school, was suspended in 3-4 grade. High school-not taking education seriously, did not do well, barely passed. [employer] in 1998 to pay for college. 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 Master's in business. No sign of mental health issues in teenage years. All mental health symptoms started with trauma. H/o alcohol use disorder following service, now in remission. [facility]. Mood is constant low, not [...] interview and evaluation of psychological symptoms. The Mcintosh's actual level of cognitive ability is unclear [...] 08/27/2023 WANDA WELCH Sleep apnea G47.30 08/08/2023 AHMED,MOHAMMED JAWED Bilateral chronic pain of feet M79. 03/25/2022 AHMED,MOHAMMED JAWED Pain in left knee M25.569 02/03/2020 AHMED,MOHAMMED JAWED Low back pain M54.50 04/25/2021 AHMED,MOHAMMED JAWED Tinnitus H93.13 11/11/2018 AHMED,MOHAMMED JAWED Erectile dysfunction (SNOMED CT 860 03/25/2022 AHMED,MOHAMMED JAWED Posttraumatic stress disorder F43.1 03/25/2023 DEVIN WEN Attention deficit without hyperacti 03/25/2023 KEVIN MORFIN FAMILY PSYCHIATRIC HISTORY Need to review SOCIAL [...] of 3, works in engineering as an operations accountant, h/o trauma, PTSD, depression, anxiety. No prior admissions or suicide attempts. Has been maintained on a stimulant. +Untreated Sleep Apnea, +insomnia and fatigue DIAGNOSIS I. MDD II. PTSD II. Alcohol [...] future and focus more on treating depression -Increase fluoxetine to 20mg daily -change bupropion to XL 300mg qam -ADD trazodone 50mg at bedtime for sleep FOLLOW UP IN CLINIC: 4 weeks TIME SPENT FACE TO FACE: 35m TOTAL TIME INCLUDING CHART REVIEW AND DOCUMENTATION: 45m SUICDE RISK ASSESSMENT: RISK ASSESSMENT: Suicide/Homicide Risk [...] patient. The patient consents to medication treatment. I encouraged the to call or message [...] this VA (local) and dispensed from another [place] or DoD facility (remote) as well as [...] whether with a VA or non-VA provider. Problem List was reviewed and updated. /kwadwo/ APOLINAR RILEY PSYCHIATRIST Signed: 08/06/2024 19:13 APOLINAR RILEY [place] [facility]
--- OUTSIDE RECORDS SUMMARY | 2024-09-09 13:11 | XMS_ITS ---
Author Name [facility] [place] [facility] [place] Organization [facility] [place] Address [address] [place] [address] Care Team Providers Care Research Hydraulic Engineer Name Role Phone SHIRLEY VILLA Primary [...] section includes the information on record at [place] for the Encounter. Date/Time Encounter Type Encounter Description Reason Provider Source Apr 07, 2024 11:30 AM PSYTX W PT W E/M 30 [facility] - IND ICD-10-CM F43.12 Post-traumatic stress disorder, chronic NAVJOT,PAMEL A Stella IHE Encounter Template Text not used by [place] Assessments - Encounter Diagnoses This section includes the primary and secondary diagnoses documented for the Encounter. Date/Time Primary/Secondary Diagnosis Diagnosis Name Provider Source Apr 07, 2024 07:10 PM PRIMARY Post-traumatic stress disorder, chronic NAVJOT,SAKINA LA B [place] [facility] [place] [facility] Apr 07, 2024 07:10 PM SECONDARY Attention-deficit hyperactivity disorder, unspecified type NAVJOT,SAKINA LA B [place] [facility] [place] [facility] Plan of Treatment: Future Appointments (+ 6 months) and Future Tests (+/- 45 days) The Plan of Treatment section includes future care activities for the patient from all [place] [facility]. This section includes future appointments and future orders which are active, pending or scheduled. Future Appointments This section includes appointments that were scheduled to occur 6 months from the date of the Encounter, up to a maximum of 20 appointments. The data comes from all [facility]. Appointment Date/Time Appointment Type Appointme nt Facility Name May 05, 2024 01:30 PM [facility] May 31, 2024 09:30 AM [facility] Jun 03, 2024 10:40 AM [facility]ULATORY - NONE [facility] Jun 14, 2024 03:00 PM [facility] Jun 24, 2024 09:00 AM [facility] Aug 05, 2024 09:00 AM [facility] Aug 11, 2024 01:00 PM AMBULATORY - [facility] Aug 16, 2024 09:00 AM AMBULATORY - [facility] Sep 13, 2024 10:30 AM [facility] Active, Pending, and Scheduled Orders This section includes a listing of several types of active, pending, and scheduled orders, including clinic medications orders, diagnostic test orders, procedure orders and consult orders; where the start date of the order is 45 days before the date of the Encounter or 45 days after the date of theEncounter. The data comes from all [facility]. Test Date/Time Test Type Test Details Facility Name Apr 07, 2024 12:00 AM Laboratory - Chemistry Order AMPHETAMINES SCREEN PANEL URINE (DRUG[facility] Apr 07, 2024 12:00 AM Laboratory - Chemistry Order ALCOHOL, ETHYL URINE PANEL URINE (DRUG) SP [facility] Apr 07, 2024 12:00 AM Laboratory - Chemistry Order BENZODIAZEPINES SCREEN PANEL URINE (DRUG) SP [facility] [place] [facility] Apr 07, 2024 12:00 AM Laboratory - Chemistry Order COCAINE SCREEN PANEL URINE (DRUG) SP [facility] [place] [facility] Apr 07, 2024 12:00 AM Laboratory - Chemistry Order CANNABINOIDS SCREEN PANEL URINE (DRUG) SP [facility] [place] [facility] Apr 07, 2024 12:00 AM Laboratory - Chemistry Order FENTANYL SCREEN PANEL URINE (DRUG) SP [facility] [place] [facility] Apr 07, 2024 12:00 AM Laboratory - Chemistry Order OPIATES SCREEN PANEL URINE (DRUG) SP [facility] [place] [facility] Social History: Smoking Status (Most current) and Tobacco Use (All prior to encounter date) This section includes the most current, and the historical, smoking and tobacco- related health factors from the [place] facility where the Encounter took place. Current Smoking Status This section includes the most current smoking, or tobacco-related health factor, from the [place] facility where the Encounter took place. Date/Time Current Smoking Status Comment Alf ity Jun 11, 2023 03:00 PM VA-TOBACCO NEVER USED [facility] [place] [facility] Tobacco Use History This section includes a history of the smoking, or tobacco-related health factors, that were collected on or before the date of the Encounter. The data comes from the [place] facility where the Encounter took place. Date/Time Smoking Status/Tobacco Use Comment F acility Jul 11, 2022 11:30 AM VA-TOBACCO NEVER USED [facility] [place] [facility] Jul 26, 2021 08:30 AM VA-TOBACCO NEVER USED [facility] [place] [facility] Aug 22, 2020 08:30 AM VA-TOBACCO NEVER USED [facility] [place] [facility] Sep 01, 2019 02:50 PM VA-TOBACCO NEVER USED [facility] [place] [facility] Sep 04, 2018 12:13 PM VA-TOBACCO NEVER USED [facility] [place] [facility] Sep 11, 2017 09:16 AM LIFETIME NON-TOBACCO USER [facility] [place] [facility] Jul 26, 2016 08:58 AM LIFETIME NON-TOBACCO USER [facility] [place] [facility] Jul 26, 2015 02:07 PM LIFETIME NON-TOBACCO USER [facility] Jun 15, 2014 02:12 PM LIFETIME [facility]BACCO [facility] Encounter Notes: All associated encounter notes This section contains the clinical notes associated to the Encounter. Date/Time Encounter Note(s) Provider Source Apr 07, 2024 11:54 AM ACCOUNTING OF DISCLOSURES NOTE: LOCAL TITLE: STATE PRESCRIPTION DRUG MONITORING PROGRAM STANDARD TITLE: ACCOUNTING OF DISCLOSURES NOTE DATE OF NOTE: APR 07, 2024@11:54:20 ENTRY DATE: APR 07, 2024@11:54:20 AUTHOR: JANNA MORFIN EXP COSIGNER: URGENCY: STATUS: COMPLETED This PDMP query was submitted by Janna Morfin [employer]. The clinical justification for this PDMP query is to review controlled substances prescribed outside of the [place], and any additional information that may become available, as an important component of standard clinical care, and in accordance with [facility] policy. Patient information was shared with the PDMP Appriss [place]. Prescription(s) filled outside the [facility] in the last 90 days are noted. However, they do not raise significant safety concerns and do not influence the treatment plan at this time. gets testosterone in the community /kwadwo/ JANNA MORFIN RN,MSN,PSYCH N.P., STAFF CLINICAL NURSE SPECIALIST Signed: 04/07/2024 11:54 JANNA MORFIN [facility] Apr 07, 2024 11:30 AM CLINICAL NURSE SPECIALIST NOTE: LOCAL TITLE: CLINICAL NURSE SPECIALIST/MENTAL HEALTH STANDARD TITLE: CLINICAL NURSE SPECIALIST NOTE DATE OF NOTE: APR 07, 2024@11:30 ENTRY DATE: APR 07, 2024@11:30:12 AUTHOR: JANNA MORFIN EXP COSIGNER: URGENCY: STATUS: COMPLETED KAREN KORINA, a 44year old WHITE MALE was seen by video today for a scheduled follow-up at [facility] for Dx: PTSD, ADHD. [place] is well known to copy writer by sight and two identifiers used and full SSN. Visit lasted 30 minutes. He is well known to copy writer by sight. Active problems - Computerized [...] history of PTSD, see previous notes from [employer] and previous providers. Paty had outside provider for a long time, has now consolidated his care to all [place]. Paty did some IREST in the past and enjoyed, he was referred for mindfulness treatment but stated there was miscommunication and he was not able to join the group. He has since declined more therapy. Continues using his own [employer] videos and is using music as his therapy. He does this daily and it is a routine that helps him cope. PAST MEDICATION TRIALS: Paty was on amphetamines from outside physician for many years for ADHD. We have consolidated care to [facility]. He continues agreeable to antidepressant and prazosin for nightmares. Doing well with no complaint of side effects or other med issues. STRENGTHS: articulate and takes interest in his health : Iterable FROM Apr TO Mar SUBJECTIVE: The was seen today for routine follow up; visit lasted for 30 minutes. [place] reports continuing to do well with amphetamines, no side effects endorsed, we had to increase his dose a bit several months ago due to the change in brands by pharmacy, and we reverted back to [place] pharmacy due to his having trouble getting meds locally at the pharmacy. He has been more stable since we increased his dose. Mr. Jones endorses some PTSD symptoms but still declines any new therapy or meds. He continues using mindfulness techniques that he learned online and in IREST. These are his chosen coping techniques and continue working for him. 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 Has been working to find resources helpful with night breathing, however CPAP is very difficult, and he often cannot use it. Respiratory has been actively working with him, with some improvement. He still gets only about 4 hours sleep, due to nightmares that wake him up. This is an ongoing and chronic issue and he prefers to continue same meds,and still does not want to add any more medications to address these symptoms. is awaiting a mouth guard to try for sleep apnea as well. He has accomodated to the sleep pattern and can function well in spite of decreased hours of sleep. We again checked in to see if he wanted new meds or therapy options and he said he is stable and feels able to meet daily demands. Continues taking care of family. CURRENT SYMPTOMS CAUSING CONCERN TO : PTSD and medical issues CURRENT STRESSORS/LIFE CIRCUMSTANCES: less stressors, feels better with some use of MM. REVIEW OF SYSTEMS: SLEEP: some significant impairment at times, nightmares keep him up, uses cpap which is sometimes difficult for him to use. Respiratory has been monitoring and trying to help. Will soon be trying a mouthguard from dental also. MOOD: minimal depressed mood reported, using his coping tools and he feels stable. PTSD: Nightmares, flashbacks, intrusive memories. avoidance: gets those at times , med helps ANXIETY: 5-6 average ANGER/IRRITABILITY/AGGRESSI ON: sometimes still has, minimal now, able to cope well SUICIDAL [...] Appearance and Behavior: Pleasant. Cooperative. Seen via C and then he plans to come to [facility] tomorrow, to picker tender helper script. Has good hygiene and grooming. Is presenting from outside, walking near his office and states he is again enjoying the weather and feeling positive. Presents calm and focused today. Eye Contact: Good. Speech: Normal rate and volume. Mood/Affect: [place] is in a calm mood today, able to relate easily and answer all questions. Smiles and interacts well with copy writer. Thought Production/Content: Logical, sequential & relevant to discussion. Perceptual Disturbances: None. Attention, concentration and memory based on answers to session questions: Good. Insight/Judgment: Both good. Ability to Provide informed consent: Yes. ASSESSMENT:44 year old WHITE MALE, presents today outside walking near his office, appearing in good contact, relevant and comfortable. Wears weather appropriate outfit of bland button down shirt and dark slacks. He is smiling and interacting well. Roberto is well known to copy writer by sight and visit lasted 30 minutes. Paty endorses no med side effects are present, he states understanding of the risks and benefits of all meds and wants to continue. Since [place] meds were not working as well, we [...] of resources available to him both at [place] and at [facility]. Also reminded of [facility] if any urgent needs arise, and he states understanding. No new medical or mental health concerns today. He had a PACT appointment and met his new PCP. States things overall are stable, medical issues are receiving help and he has family supports in place. Family have some holiday events planned and he is looking forward to spending time with family. [place] now appears (x)stable psychiatrically ()unstable psychiatrically i. Severity of Illness: ()none (x)mild ()moderately ill ()severely ill ()very severely ill ii. Global Improvement: ()very much ()much (x)min ()none ()min worse ()much worse ()very much worse iii. Current risk of harm: ()none (x)low ()mod ()high TREATMENT PLAN/ DISCUSSION/ RATIONALE: 1. [place] is doing well on current medications, no side effects or other issues endorsed. Wants to continue same regime. Receives all meds from this [facility] currently. Orders refills by [facility] now and he is doing well with that modality. He has learned how to use the esperanza and continues using that. Roberto is happy with current med regime and how he is able to order his meds. 3. Reminded of [facility] if urgent needs, and Crisis Line, new number for 's emergency help. Also reminded to use ER or UC if emergency. He agrees. 4. Offered therapy if he needs it, but he continues to prefer apps online and he uses one daily for mindfulness. Continues doing online yoga and meditation. 5. Sleep is still an issue, but he feels he is getting enough sleep to engage in daily activities and work. Continues pursuing options to get better results for his sleep apnea. He continues using nasal spray with some effect to help his night breathing. He was given info on online therapy for sleep, but did not want to consider at present. 7. Nightmares still bother him at times, but he feels he is doing well given his PTSD, he has been offered nightmare therapy, so far did not want to try this. 8. [place] continues doing light exercise, pain has lessened and he can do more. He likes to exercise and stay as fit as possible. 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 9. Labs reviewed briefly, he is aware of the results and all are WNL. We agreed to do UDS and get that done this month for monitoring. 10. Roberto is aware of his upcoming dental appt and plans to attend. 11. Problem List [...] ER in the event of an emergency. Suicide Screen: C-SSRS Screening [place] Suicide Severity Rating Scale (C-SSRS) screener 1. Over the past month, have you wished you were or wished you could go to sleep and not wake up? Yes 2. Over the past month, have you had any actual thoughts of killing yourself? No 3. Over the past month, have you been thinking about how you might do this? Response not required due to responses to other questions. 4. Over the past month, have you had these thoughts and had some intention of acting on them? Response not required due to responses to other questions. 5. Over the past month, have you started to work out or worked out the details of how to kill yourself? Response not required due to responses to other questions. 6. If yes, at any time in the past month did you intend to carry out this plan? Response not required due to responses to other questions. 7. In your lifetime, have you ever done anything, started to do anything, or prepared to do anything to end your life (for example, collected pills, obtained a gun, gave away valuables, went to the roof but didn't jump)? No 8. If YES, was this within the past 3 months? Response not required due to responses to other questions. Medication Reconciliation: Outpatient: Has the patient been taking medications as documented in the EMLR? YES: The patient has been taking medications as documented in the EMLR. Essential Medication List for Review used to complete this medication reconciliation. INCLUDED IN THIS LIST: Alphabetical list of active outpatient prescriptions dispensed from this [place] (local) and dispensed from another [place] or [facility] facility (remote) as well as inpatient orders [...] RN,MSN,PSYCH N.P., STAFF CLINICAL NURSE SPECIALIST Signed: 04/07/2024 19:10 JANNA MORFIN [place] [facility]
--- OUTSIDE RECORDS SUMMARY | 2024-09-09 13:11 | XMS_ITS ---
Author Name [facility] [place] [facility] [place] Organization [facility] [place] Address [address] [place] [id number] Care Team Providers Care Fire Management Specialist Name Role Phone SHIRLEY VILLA Primary Care [...] section includes the information on record at [place] for the Encounter. Date/Time Encounter Type Encounter Description Reason Pro vider Source Aug 11, 2024 01:00 PM Outpatient Encounter AUDIOLOGY IHE Encounter Template Text not used by [place] Plan of Treatment: Future Appointments (+ 6 months) and Future Tests (+/- 45 days) The Plan of Treatment section includes future care activities for the patient from all [place] treatmentfacilities. This section includes future appointments and future orders which are active, pending or scheduled. Future Appointments This section includes appointments that were scheduled to occur 6 months from the date of the Encounter, up to a maximum of 20 appointments. The data comes from all [place] treatment facilities. Appointment Date/Time Appointment Type Appointme nt Facility Name Aug 16, 2024 09:00 AM AMBULATORY - [facility] Sep 13, 2024 10:30 AM AMBULATORY - NONE [facility] [place] [facility] Dec 28, 2024 08:00 AM AMBULATORY - MEDICINE [facility] [place] [facility] Active, Pending, and Scheduled Orders This section includes a listing of several types of active, pending, and scheduled orders, including clinic medications orders, diagnostic test orders, procedure orders and consult orders; where the start date of the order is 45 days before the date of the Encounter or 45 days after the date of theEncounter. The data comes from all [place] treatment facilities. Test Date/Time Test Type Test Details Facility Name Aug 19, 2024 02:49 PM Consult Order COMMUNITY CARE-COLONOSCOPY SCREENING Cons Welder Setter Resistance Machine's Choice [place] [facility] [facility] Social History: Smoking Status (Most current) and Tobacco Use (All prior to encounter date) This section includes the most current, and the historical, smoking and tobacco- related health factors from the [place] facility where the Encounter took place. Current Smoking Status This section includes the most current smoking, or tobacco-related health factor, from the [place] facility where the Encounter took place. Date/Time Current Smoking Status Comment Facil ity Jun 11, 2023 03:00 PM VA-TOBACCO NEVER USED [place] [facility] [place] [facility] Tobacco Use History This section includes a history of the smoking, or tobacco-related health factors, that were collected on or before the date of the Encounter. The data comes from the [place] facility where the Encounter took place. Date/Time Smoking Status/Tobacco Use Comment F acility Jul 11, 2022 11:30 AM VA-TOBACCO NEVER USED [facility] [place] [facility] Jul 26, 2021 08:30 AM VA-TOBACCO NEVER USED [facility] [place] [facility] Aug 22, 2020 08:30 AM VA-TOBACCO NEVER USED [facility] [place] [facility] Sep 01, 2019 02:50 PM VA-TOBACCO NEVER USED [facility] [place] [facility] Sep 04, 2018 12:13 PM VA-TOBACCO NEVER USED [facility] [place] [facility] Sep 11, 2017 09:16 AM LIFETIME NON-TOBACCO USER [facility] [place] [facility] Jul 26, 2016 08:58 AM LIFETIME NON-TOBACCO USER [facility] [place] [facility] Jul 26, 2015 02:07 PM LIFETIME NON-TOBACCO USER [place] [facility] [place] [facility] Jun 15, 2014 02:12 PM LIFETIME NON-TOBACCO USER [place] [facility] [place] [facility] Encounter Notes: All associated encounter notes This section contains the clinical notes associated to the Encounter. Date/Time Encounter Note(s) Provider Source Aug 11, 2024 01:37 PM CLERICAL NOTE: LOCAL TITLE: APPOINTMENT NO SHOW STANDARD TITLE: CLERICAL NOTE DATE OF NOTE: AUG 11, 2024@13:37 ENTRY DATE: AUG 11, 2024@13:37:27 AUTHOR: RAMIRO MASTERSON EXP COSIGNER: URGENCY: STATUS: COMPLETED Patient Name: KORINA JONES Patient SSN: [id number] Date and time of Appointment No show : 08/11/24 13:00 PATIENT PHONE - [phone] PHONE NUMBER [[email or web address]] - Patient's medical record was reviewed. Follow-up actions were determined and initiated: Please check/complete as applies: [ ]Telephoned Directly [ ]Re-scheduled for next available appt [X]Sent a N0-show letter ( must call for appointment) [ ]Other (Emergent/Overbook, etc.): Additional Comments: Future Clinic Visits 09/07/2024 08:30 [facility] PSYTR 1 AM /kwadwo/ Antonia BARRETT, CCC-A STAFF RAILS DEVELOPER Signed: 08/11/2024 13:47 Receipt Acknowledged By: 08/11/2024 15:35 /es/ LUIS SCHWARTZ ADVANCED AIRCREWMAN RAMIRO MASTERSON [place] [facility]
--- OUTSIDE RECORDS SUMMARY | 2024-09-09 13:11 | XMS_ITS ---
Author Name [facility] [place] [facility] [facility] [place] Address [address] [place] [id number] Care Team Providers Care Flour Mixer Helper Name Role Phone SHIRLEY VILLA Primary Care Provider Unavailramos e Insurance Providers: All historical and current [...] section includes the information on record at [place] for the Encounter. Date/Time Encounter Type Encounter Description Reason Pro vider Source Sep 07, 2024 08:30 AM [facility] En[facility] Template Text not used by [place] Plan of Treatment: Future Appointments (+ 6 months) and Future Tests (+/- 45 days) The Plan of Treatment section includes future care activities for the patient from all [place] treatmentfacilities. This section includes future appointments and future orders which are active, pending or scheduled. Future Appointments This section includes appointments that were scheduled to occur 6 months from the date of the Encounter, up to a maximum of 20 appointments. The data comes from all [place] treatment facilities. Appointment Date/Time Appointment Type Appointme nt Facility Name Sep 13, 2024 10:30 AM [facility] Dec 28, 2024 08:00 AM AMBULATORY - MEDICINE [place] [facility] [place] [facility] Active, Pending, and Scheduled Orders This section includes a listing of several types of active, pending, and scheduled orders, including clinic medications orders, diagnostic test orders, procedure orders and consult orders; where the start date of the order is 45 days before the date of the Encounter or 45 days after the date of theEncounter. The data comes from all [place] treatment facilities. Test Date/Time Test Type Test Details Facility Name Aug 19, 2024 02:49 PM Consult Order COMMUNITY CARE-COLONOSCOPY SCREENING Cons Roustabout Crew Pusher's Choice [place] [facility] [place] [facility] Social History: Smoking Status (Most current) and Tobacco Use (All prior to encounter date) This section includes the most current, and the historical, smoking and tobacco- related health factors from the [place] facility where the Encounter took place. Current Smoking Status This section includes the most current smoking, or tobacco-related health factor, from the [place] facility where the Encounter took place. Date/Time Current Smoking Status Comment Alf watts Jun 11, 2023 03:00 PM VA-TOBACCO NEVER USED [place] [facility] [place] [facility] Tobacco Use History This section includes a history of the smoking, or tobacco-related health factors, that were collected on or before the date of the Encounter. The data comes from the [place] facility where the Encounter took place. Date/Time Smoking Status/Tobacco Use Comment Jay acmio Jul 11, 2022 11:30 AM VA-TOBACCO NEVER USED [place] [facility] [place] [facility] Jul 26, 2021 08:30 AM VA-TOBACCO NEVER USED [place] [facility] [place] [facility] Aug 22, 2020 08:30 AM VA-TOBACCO NEVER USED [place] [facility] [place] [facility] Sep 01, 2019 02:50 PM VA-TOBACCO NEVER USED [place] [facility] [place] [facility] Sep 04, 2018 12:13 PM VA-TOBACCO NEVER USED [place] [facility] [place] [facility] Sep 11, 2017 09:16 AM LIFETIME NON-TOBACCO USER [place] [facility] [place] [facility] Jul 26, 2016 08:58 AM LIFETIME NON-TOBACCO USER [place] [facility] [place] [facility] Jul 26, 2015 02:07 PM LIFETIME NON-TOBACCO USER [facility] [place] [facility] Jun 15, 2014 02:12 PM LIFETIME [facility]-TOBACCO [facility] Encounter Notes: All associated encounter notes This section contains the clinical notes associated to the Encounter. Date/Time Encounter Note(s) Provider Source Sep 07, 2024 07:53 AM ADMINISTRATIVE NOT E: LOCAL TITLE: ADMINISTRATIVE NOTE STANDARD TITLE: ADMINISTRATIVE NOTE DATE OF NOTE: SEP 07, 2024@07:53 ENTRY DATE: SEP 07, 2024@07:53:52 AUTHOR: TANVIR GLASS EXP COSIGNER: URGENCY: STATUS: COMPLETED Esparto call to cancel today appt., he will call back to reschedule, thanks. /kwadwo/ TANVIR GLASS ADVANCED MARINE STEWARD Signed: 09/07/2024 07:54 TANVIR GLASS [facility]
--- OUTSIDE RECORDS SUMMARY | 2024-09-09 13:11 | XMS_ITS ---
Author Name [facility] [place] [facility] [place] [facility] [place] Address [address] [place] [address] Care Team Providers Care Reservation Clerk Name Role Phone SHIRLEY VILLA Primary Care [...] section includes the information on record at [place] for the Encounter. Date/Time Encounter Type Encounter Description Reason Provider Source May 05, 2024 01:30 PM PSYTX W PT W E/M 30 [facility] - IND ICD-10-CM F43.12 Post-traumatic stress disorder, chronic NAVJOTEVANGELINA A Stella IHE Encounter Template Text not used by [place] Assessments - Encounter Diagnoses This section includes the primary and secondary diagnoses documented for the Encounter. Date/Time Primary/Secondary Diagnosis Diagnosis Name Provider Source May 05, 2024 09:31 PM PRIMARY Post-traumatic stress disorder, chronic NAVJOT,SAKINA LA B [place] [facility] [place] [facility] May 05, 2024 09:31 PM SECONDARY Attention-deficit hyperactivity disorder, unspecified type RENETTA MORFINE LA B [place] [facility] [place] [facility] Plan of Treatment: Future Appointments (+ 6 months) and Future Tests (+/- 45 days) The Plan of Treatment section includes future care activities for the patient [facility] [place] [facility]. This section includes future appointments and future orders which are active, pending or scheduled. Future Appointments This section includes appointments that were scheduled to occur 6 months from the date of the Encounter, up to a maximum of 20 appointments. The data comes from all [place] treatment facilities. Appointment Date/Time Appointment Type Appointme nt Facility Name May 31, 2024 09:30 AM AMBULATORY [facility] Jun 03, 2024 10:40 AM AMBULATORY - NONE [facility] Jun 14, 2024 03:00 PM AMBULATORY - REHAB MEDICIN E [facility] Jun 24, 2024 09:00 AM [facility] Aug 05, 2024 09:00 AM AMBULATORY - [facility]IATRY [facility] Aug 11, 2024 01:00 PM AMBULATORY - REHAB MEDICIN E [facility] [place] [facility] Aug 16, 2024 09:00 AM AMBULATORY - REHAB MEDICIN E [facility] Sep 13, 2024 10:30 AM AMBULATORY - NONE [facility] Active, Pending, and Scheduled Orders This section includes a listing of several types of active, pending, and scheduled orders, including clinic medications orders, diagnostic test orders, procedure orders and consult orders; where the start date of the order is 45 days before the date of the Encounter or 45 days after the date of theEncounter. The data comes from all [facility]. Test Date/Time Test Type Test Details Facility Name Apr 07, 2024 12:00 AM Laboratory - Chemistry Order ALCOHOL, ETHYL URINE PANEL URINE (DRUG) SP ONCE [facility] [place] [facility] Apr 07, 2024 12:00 AM Laboratory - Chemistry Order AMPHETAMINES SCREEN PANEL URINE (DRUG) [facility] Apr 07, 2024 12:00 AM Laboratory - Chemistry Order BENZODIAZEPINES SCREEN PANEL URINE (DRUG) SP [facility] [place] [facility] Apr 07, 2024 12:00 AM Laboratory - Chemistry Order CANNABINOIDS SCREEN PANEL URINE (DRUG) SP [facility] [place] [facility] Apr 07, 2024 12:00 AM Laboratory - Chemistry Order COCAINE SCREEN PANEL URINE (DRUG) SP [facility] [place] [facility] Apr 07, 2024 12:00 AM Laboratory - Chemistry Order FENTANYL SCREEN PANEL URINE (DRUG) SP [facility] [place] [facility] Apr 07, 2024 12:00 AM Laboratory - Chemistry Order OPIATES SCREEN PANEL URINE (DRUG) SP [facility] [place] [facility] Social History: Smoking Status (Most current) and Tobacco Use (All prior to encounter date) This section includes the most current, and the historical, smoking and tobacco- related health factors from the [place] facility where the Encounter took place. Current Smoking Status This section includes the most current smoking, or tobacco-related health factor, from the [place] facility where the Encounter took place. Date/Time Current Smoking Status Comment Alf watts Jun 11, 2023 03:00 PM VA-TOBACCO NEVER USED [facility] [place] [facility] Tobacco Use History This section includes a history of the smoking, or tobacco-related health factors, that were collected on or before the date of the Encounter. The data comes from the [place] facility where the Encounter took place. Date/Time Smoking Status/Tobacco Use Comment Jay acmio Jul 11, 2022 11:30 AM VA-TOBACCO NEVER USED [facility] [place] [facility] Jul 26, 2021 08:30 AM VA-TOBACCO NEVER USED [facility] [place] [facility] Aug 22, 2020 08:30 AM VA-TOBACCO NEVER USED [facility] [place] [facility] Sep 01, 2019 02:50 PM VA-TOBACCO NEVER USED [facility] [place] [facility] Sep 04, 2018 12:13 PM VA-TOBACCO NEVER USED [facility] [place] [facility] Sep 11, 2017 09:16 AM LIFETIME NON-TOBACCO USER [facility] [place] [facility] Jul 26, 2016 08:58 AM LIFETIME NON-TOBACCO USER [facility] [place] [facility] Jul 26, 2015 02:07 PM LIFETIME NON-TOBACCO USER [facility] [place] [facility] Jun 15, 2014 02:12 PM LIFETIME NON-TOBACCO USER [facility] Encounter Notes: All associated encounter notes This section contains the clinical notes associated to the Encounter. Date/Time Encounter Note(s) Provider Source May 05, 2024 01:46 PM ACCOUNTING OF DISCLOSURES NOTE: LOCAL TITLE: STATE PRESCRIPTION DRUG MONITORING PROGRAM STANDARD TITLE: ACCOUNTING OF DISCLOSURES NOTE DATE OF NOTE: MAY 05, 2024@13:46:52 ENTRY DATE: MAY 05, 2024@13:46:52 AUTHOR: JANNA MORFIN EXP COSIGNER: URGENCY: STATUS: COMPLETED This PDMP query was submitted by Janna Morfin [employer]. The clinical justification for this PDMP query is to review controlled substances prescribed outside of the [place], and any additional information that may become available, as an important component of standard clinical care, and in accordance with [facility] policy. Patient information was shared with the PDMP [employer] [place]. Prescription(s) filled outside the [facility] in the last 90 days are noted. However, they do not raise significant safety concerns and do not influence the treatment plan at this time. Vet continues getting testosterone for Community prescriber. /kwadwo/ JANNA MORFIN RN,MSN,PSYCH N.P., STAFF CLINICAL NURSE SPECIALIST Signed: 05/05/2024 13:47 JANNA MORFIN [facility] May 05, 2024 01:41 PM CLINICAL NURSE SPECIALIST NOTE: LOCAL TITLE: CLINICAL NURSE SPECIALIST/MENTAL HEALTH STANDARD TITLE: CLINICAL NURSE SPECIALIST NOTE DATE OF NOTE: MAY 05, 2024@13:41 ENTRY DATE: MAY 05, 2024@13:42:05 AUTHOR: JANNA MORFIN EXP COSIGNER: URGENCY: STATUS: COMPLETED KORINA JONES, a 44year old MALE was seen by video today for a scheduled follow-up at [facility] for Dx: PTSD, ADHD. [place] is well known to commercial lines underwriter by sight and two identifiers used, and full SSN. Visit lasted 30 minutes. He is well known to commercial lines underwriter by sight. Active problems - Computerized Problem List is the source for the followin. Pain in left knee 2. Low back pain 3. Tinnitus 4. Alcohol dependence 5. Erectile dysfunction 6. Posttraumatic stress disorder 7. Attention deficit without hyperactivity CHART REVIEW: [place] is a patient of Dr. Alessio DAS [...] history of PTSD, see previous notes from [employer] and previous providers. Paty had outside provider for a long time, has now consolidated his care to all [place]. Paty did some IREST in the past and enjoyed, he was referred for mindfulness treatment but stated there was miscommunication and he was not able to join the group. He has since declined more therapy. Continues using his own [employer] videos and is using music as his therapy. He does this daily and it is a routine that helps him cope. PAST MEDICATION TRIALS: Paty was on amphetamines from outside physician for many years for ADHD. We have consolidated care to [facility]. He continues agreeable to antidepressant and prazosin for nightmares. Doing well with no complaint of side effects or other med issues. STRENGTHS: articulate and takes interest in his health : [employer] FROM Apr TO Mar SUBJECTIVE: The [place] was seen today for routine follow up; visit lasted for 30 minutes. reports continuing to do well with amphetamines, no side effects endorsed, we had to increase his dose some months ago due to the change in brands by pharmacy, which then were not working for him. Vet tried getting amphetamines at local pharmacy but shortage national shotaged resulted in reverting back to [place] pharmacy. At that time we tried the regular dosage, but it was not working well, so we increased to current dose. He has been more stable since we increased his dose. Mr. Jones endorses some PTSD symptoms but still declines any new therapy or meds. He continues using mindfulness techniques that he learned online and in IREST. Has his own daily routines and gets help on the internet. These are his chosen coping techniques and continue working for him. 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 Sleep apnea has continued to be problmatic but he is trying to get ongoing help from respiratory department. He still gets only about 4 hours sleep, due to nightmares that wake him up. This is an ongoing and chronic issue and he prefers to continue same meds,and still does not want to add any more medications to address these symptoms. Halifax is awaiting a mouth guard to try [...] Appearance and Behavior: Pleasant. Cooperative. Seen via [facility] and he generally likes to picker/puller meds rather than mailing. Has good hygiene and grooming. Wears uniform and has weather appropriate outfit. He is presenting from outside, walking near his home and states he is again enjoying getting exercise and is feeling positive. Presents calm and focused today. Eye Contact: Good. Speech: Normal rate and volume. Mood/Affect: [place] is in a calm mood today, able to relate easily and answer all questions. Smiles and interacts well with commercial lines underwriter. Thought Production/Content: Logical, sequential & relevant to discussion. Perceptual Disturbances: None. Attention, concentration and memory based on answers to session questions: Good. Insight/Judgment: Both good. Ability to Provide informed consent: Yes. ASSESSMENT:44 year old male , presents today outside walking near his home, appearing in good contact, relevant and comfortable. Wears weather appropriate outfit of blue button down shirt and dark slacks. He is smiling and interacting well. Roberto is well known to commercial lines underwriter by sight and visit lasted 30 minutes. Halifax endorses no med side effects are present, he states understanding of the risks and benefits of all meds and wants to continue. Since [place] meds were not working as well, we [...] when he drinks less, per his report. endorses feeling stable on antidepressant and current sleep med, plus amphetamine. He continues to decline conventional therapy for MH. Is reminded of resources available to him both at [place] and at [facility]. Also reminded of [facility] if any urgent needs arise, and he states understanding. No new medical or mental health concerns today. States things overall are stable, medical issues are receiving help and he has family supports in place. Family have holiday events planned and he is looking forward to spending time with family. Hal[place] now appears (x)stable psychiatrically ()unstable psychiatrically i. Severity of Illness: ()none (x)mild ()moderately ill ()severely ill ()very severely ill ii. Global Improvement: ()very much ()much (x)min ()none ()min worse ()much worse ()very much worse iii. Current risk of harm: ()none (x)low ()mod ()high TREATMENT PLAN/ DISCUSSION/ RATIONALE: 1. is doing well on current medications, no side effects or other issues endorsed. Wants to continue same regime. Receives all meds from this [facility] currently. Orders refills by [facility] now and he continues doing well with that modality. Roberto is happy with current med regime and how he is able to order his meds. 3. Reminded of [facility] if urgent needs, and Crisis Line, new number for Hal[place]'s emergency help. Also reminded to use ER [...] did not want to try this. 8. Hal[place] continues doing light exercise, pain has lessened [...] 10. Roberto is aware of his upcoming community care appt and plans to attend. 11. Problem List was reviewed today. Next Visit: in one month. However, I asked the patient to call me or to come to return for sooner appointment if the patient does not like the effect of psychiatric medication or if has side effects with psychiatric medication. We reviewed that he will be contacted to see a transitional provider for next month and he agrees. LAB REVIEW: ()none/not applicable (x)discussed lab results, [...] denied suicidal and violent ideation, but the [facility] Crisis Line information and number were given [...] this [facility] (local) and dispensed from another [place] or DoD facility (remote) as well as [...] RN,MSN,PSYCH N.P., STAFF CLINICAL NURSE SPECIALIST Signed: 05/05/2024 21:31 JANNA MORFIN [facility]
--- OUTSIDE RECORDS SUMMARY | 2024-09-09 13:11 | XMS_ITS | Clinical Summary ---
Author Organization [facility] Address [address] [place] [address] Care Team Providers Care Corrective And Manual Arts Therapist Name Role Phone Unavailable Primary Care Provider Unavailabl e Social History Tobacco Use Types Packs/Day Years Used Date Smoking Tobacco: Never Assessed Sex and Gender Information Value Date Recorded Sex Assigned at Not on file Legal Sex Male 7:28 PM EDT Gender Identity Not on file Sexual Orientation Not on file Plan of Treatment Health Maintenance Due Date Last Done Comments Hepatitis C Screening 1979 DTaP/Tdap/Td (1 - Tdap) 1997 Hep B (1 of 3 - 19+ 3-dose series) 1998 COVID-19 Vaccine (2023-2 5 season) 2024 Influenza (#1) 2024 Zoster (Shingrix) (1 of 2) 2029 HPV Vaccine Aged Out No longer eligi ble based on patient's age to complete this topic Hep A Aged Out No longer eligi ble based on patient's age to complete this topic Hib Aged Out No longer eligi ble based on patient's age to complete this topic Meningococcal ACWY Aged Out No longer eligible based on patient's age to complete this topic Pneumococcal Aged Out No longer eligi ble based on patient's age to complete this topic
--- OUTSIDE RECORDS SUMMARY | 2024-09-09 13:11 | XMS_ITS | Encounter Summary ---
Author Name [facility] [place] [facility] [facility] [place] Address [address] [place] [address] Care Team Providers Care Partner Marketing Manager Name Role Phone SHIRLEY VILLA Primary Care [...] section includes the information on record at [place] for the Encounter. Date/Time Encounter Type Encounter Description Reason Provider Source Dec 31, 2023 01:00 PM PSYTX W PT W E/M [facility] - IND ICD-10-CM F43.12 Post-traumatic stress disorder, chronic NAVJOTEVANGELINA A Stella [facility] Encounter Template Text not used by [place] Assessments - Encounter Diagnoses This section includes the primary and secondary diagnoses documented for the Encounter. Date/Time Primary/Secondary Diagnosis Diagnosis Name Provider Source Dec 31, 2023 09:16 PM PRIMARY Post-traumatic stress disorder, chronic NAVJOT,SAKINA LA Stella [place] [facility] [place] [facility] Dec 31, 2023 09:16 PM SECONDARY Attention-deficit hyperactivity disorder, unspecified type RENETTA MORFINE LA B [place] [facility] [place] [facility] Plan of Treatment: Future Appointments (+ 6 months) and Future Tests (+/- 45 days) The Plan of Treatment section includes future care activities for the [facility] [place] [facility] This section includes future appointments and future orders which are active, pending or scheduled. Future Appointments This section includes appointments that were scheduled to occur 6 months from the date of the Encounter, up to a maximum of 20 appointments. The data comes from all [place] treatment facilities. Appointment Date/Time Appointment Type Appointme nt Facility Name Feb 09, 2024 10:30 AM AMBULATORY - [place]IATRY [place] [facility] [place] [facility] Mar 08, 2024 10:30 AM AMBULATORY - [place]IATRY [facility] [place] [facility] Mar 15, 2024 10:30 AM AMBULATORY - NONE [place] [place] [facility] Apr 07, 2024 11:30 AM AMBULATORY [place]AT[place] [facility] [place] [facility] May 05, 2024 01:30 PM AMBULATORY - [place]IATRY [place] [place] [facility] May 31, 2024 09:30 AM AMBULATORY - [place]IATRY [facility] [place] [facility] Jun 03, 2024 10:40 AM [facility] NONE [facility] [place] [facility] Jun 14, 2024 03:00 PM AMBULATORY - REHAB MEDICIN [place] [facility] [place] [facility] Jun 24, 2024 09:00 AM [facility] Active, Pending, and Scheduled Orders This section includes a listing of several types of active, pending, and scheduled orders, including clinic medications orders, diagnostic test orders, procedure orders and consult orders; where the start date of the order is 45 days before the date of the Encounter or 45 days after the date of theEncounter. The data comes from all [facility]. Test Date/Time Test Type Test Details Facility Name Dec 16, 2023 07:00 AM Laboratory - Chemistry Order COCAINE SCREEN PANEL URINE (DRUG) [facility] [place] [facility] Dec 16, 2023 07:00 AM Laboratory - Chemistry Order OPIATES SCREEN PANEL [facility] Dec 16, 2023 07:00 AM Laboratory - Chemistry Order OXYCODONE SCREEN PANEL URINE (DRUG) [facility] [place] [facility] Dec 16, 2023 07:00 AM Laboratory - Chemistry Order ALCOHOL, ETHYL URINE PANEL URINE (DRUG) SP ONCE [facility] [place] [facility] Dec 16, 2023 07:00 AM Laboratory - Chemistry Order AMPHETAMINES SCREEN PANEL URINE (DRUG) [facility] [place] [facility] Dec 16, 2023 07:00 AM Laboratory - Chemistry Order FENTANYL SCREEN PANEL URINE (DRUG) [facility] [place] [facility] Dec 16, 2023 07:00 AM Laboratory - Chemistry Order BENZODIAZEPINES SCREEN PANEL URINE (DRUG) [facility] [place] [facility] Dec 16, 2023 07:00 AM Laboratory - Chemistry Order CANNABINOIDS SCREEN PANEL URINE (DRUG) [facility] [place] [facility] Social History: Smoking Status (Most current) and Tobacco Use (All prior to encounter date) This section includes the most current, and the historical, smoking and tobacco- related health factors from the [place] facility where the Encounter took place. Current Smoking Status This section includes the most current smoking, or tobacco-related health factor, from the [place] facility where the Encounter took place. Date/Time Current Smoking Status Comment Alf ity Jun 11, 2023 03:00 PM VA-TOBACCO NEVER USED [facility] [place] [facility] Tobacco Use History This section includes a history of the smoking, or tobacco-related health factors, that were collected on or before the date of the Encounter. The data comes from the [place] facility where the Encounter took place. Date/Time Smoking Status/Tobacco Use Comment F acility Jul 11, 2022 11:30 AM VA-TOBACCO NEVER USED [facility] [place] [facility] Jul 26, 2021 08:30 AM VA-TOBACCO NEVER USED [facility] [place] [facility] Aug 22, 2020 08:30 AM VA-TOBACCO NEVER USED [facility] [place] [facility] Sep 01, 2019 02:50 PM VA-TOBACCO NEVER USED [facility] [place] [facility] Sep 04, 2018 12:13 PM VA-TOBACCO NEVER USED [facility] [place] [facility] Sep 11, 2017 09:16 AM LIFETIME NON-TOBACCO USER [facility] [place] [facility] Jul 26, 2016 08:58 AM LIFETIME NON-TOBACCO USER [place] [facility] [place] [facility] Jul 26, 2015 02:07 PM LIFETIME NON-TOBACCO USER [place] [facility] [place] [facility] Jun 15, 2014 02:12 PM LIFETIME NON-TOBACCO USER [facility] Encounter Notes: All associated encounter notes This section contains the clinical notes associated to the Encounter. Date/Time Encounter Note(s) Provider Source Dec 31, 2023 09:30 PM ACCOUNTING OF DISCLOSURES NOTE: LOCAL TITLE: STATE PRESCRIPTION DRUG MONITORING PROGRAM STANDARD TITLE: ACCOUNTING OF DISCLOSURES NOTE DATE OF NOTE: DEC 31, 2023@21:30:03 ENTRY DATE: DEC 31, 2023@21:30:03 AUTHOR: JANNA MORFIN EXP COSIGNER: URGENCY: STATUS: COMPLETED This PDMP query was submitted by Janna Morfin [facility]. The clinical justification for this PDMP query is to review controlled substances prescribed outside of the [facility], and any additional information that may become available, as an important component of standard clinical care, and in accordance with [facility] policy. Patient information was shared with the PDMP [place]. Prescription(s) filled outside the [facility] in the last 90 days are noted. However, they do not raise significant safety concerns and do not influence the treatment plan at this time. receives testosterone from Community provider. /kwadwo/ JANNA MORFIN RN,MSN,PSYCH N.P., STAFF CLINICAL NURSE SPECIALIST Signed: 12/31/2023 21:31 JANNA MORFIN [facility] Dec 31, 2023 09:16 PM CLINICAL NURSE SPECIALIST NOTE: LOCAL TITLE: CLINICAL NURSE SPECIALIST/MENTAL HEALTH STANDARD TITLE: CLINICAL NURSE SPECIALIST NOTE DATE OF NOTE: DEC 31, 2023@21:16 ENTRY DATE: DEC 31, 2023@21:17:10 AUTHOR: JANNA MORFIN EXP COSIGNER: URGENCY: STATUS: COMPLETED KORINA JONES, a 43year old WHITE MALE was seen by video today for a scheduled follow-up at [facility] for Dx: PTSD, ADHD. [place] is well known to contract technical writer by sight and two identifiers used and full SSN. Visit lasted 30 minutes. He is well known to contract technical writer by sight. Active problems - [...] history of PTSD, see previous notes from [employer] and previous providers. Paty had outside provider for a long time, has now consolidated his care to all [place]. Paty did some IREST in the past and enjoyed, he was referred for mindfulness treatment but stated there was miscommunication and he was not able to join the group. He has since declined more therapy. Continues using his own [employer] videos and is using music as his therapy. He does this daily and it is a routine that helps him cope. PAST MEDICATION TRIALS: Paty was on amphetamines from outside physician for many years for ADHD. We have consolidated care to [facility]. He continues agreeable to antidepressant and prazosin for nightmares. Doing well with no complaint of side effects or other med issues. STRENGTHS: articulate and takes interest in his health : [employer] FROM Apr TO Mar SUBJECTIVE: The was seen today for routine follow up; visit lasted for 30 minutes. reports continuing to do well with amphetamines, no side effects endorsed, we had to increase his dose a bit several months ago due to the change in brands by pharmacy, but we reverted back to [place] pharmacy due to his having trouble getting meds locally at the pharmacy as well. We had been providing written prescriptions which he was filling at [facility]. This had no longer been working well, so we returned scripts to [place] and at the increased dose he is doing well. Other meds continue to work well with no side effects per . Mr. Jones states he continues dealing with some PTSD symptoms but still declines any new therapy or meds. He continues using some mindfulness techniques that he learned online and in I[facility] which was his [...] has been monitoring and trying to help. MOOD: minimal depressed mood reported, using his [...] Behavior: Pleasant. Cooperative. Seen via [facility] and then he plans to come [place] later, to knot picker cloth script. Has good hygiene and grooming. Is presenting from outside, walking in the sun and states he is enjoying the weather and feeling positive. Presents calm and focused today. Eye Contact: Good. Speech: Normal rate and volume. Mood/Affect: [place] is in a calm mood today, able to relate easily and answer all questions. Smiles and interacts well with contract technical writer. Thought Production/Content: Logical, sequential & relevant to discussion. Perceptual Disturbances: None. Attention, concentration and memory based on answers to session questions: Good. Insight/Judgment: Both good. Ability to Provide informed consent: Yes. ASSESSMENT:43 year old WHITE MALE, presents today appearing in good contact, relevant and comfortable. Wears weather appropriate outfit of bland slacks and white shirt. He is smiling and interacting well. Roberto is well known to contract technical writer by sight and visit lasted 30 minutes. Paty endorses no med side effects are present, he states understanding of the risks and benefits of all meds and wants to continue. Since [facility] meds were not working well had to increase to a high dose [...] when he drinks moderately, per his report. Paty endorses feeling stable on antidepressant and current sleep med, plus amphetamine. He continues to decline conventional therapy for MH. Is reminded of resources available to him both at [place] and at [facility]. Also reminded of [facility] if any urgent needs arise, and [...] continue same regime. All meds from this [facility] currently. Refills by [facility] now and he is doing well with that modality no. He has learned how to use the esperanza and is happy that he can now do so. Roberto is seen early due to contract technical writer being out for several weeks upcoming and he agrees to fill his med when due and does not need an early fill. 3. Reminded of [facility] if urgent needs, and Crisis Line, new number for 's emergency help. Also reminded to use ER or if emergency. 4. Offered therapy if he needs it, continues to prefer apps online and he has one he continues to use daily for mindfulness. Continues doing online yoga and meditation. 5. Sleep is still an issue, he had a respiratory appt and is being followed by them to try and get better results for his sleep apnea. He continues using nasal spray with some effect to help his night breathing. He is waiting to try a mouthgard for his sleep apnea, was given the information on the Sleep EZ program in case he wants to try that option. 7. Nightmares still bother him at times, but he feels he is doing well given his PTSD, he has been offered nightmare therapy, so far did not want to try this. 8. continues doing light exercise, pain has lessened [...] WNL.. 10. Vet is aware of his dental appt and plans to attend. 11. [...] ER in the event of an emergency. Sexual Orientation: The patient thinks of their sexual orientation as: Straight or Heterosexual Medication Reconciliation: Outpatient: Has the patient been [...] RN,MSN,PSYCH N.P., STAFF CLINICAL NURSE SPECIALIST Signed: 12/31/2023 21:[address] [facility]
--- OUTSIDE RECORDS SUMMARY | 2024-09-09 13:11 | XMS_ITS | Encounter Summary ---
Author Name [facility] [place] Organization [facility] [place] [place] Address [address] [place] [address] Care Team Providers Care Minibus Driver Name Role Phone SHIRLEY VILLA Primary Care [...] section includes the information on record at [place] for the Encounter. Date/Time Encounter Type Encounter Description Reason Provider Source Dec 10, 2023 11:00 AM PSYTX W PT W E/M 30 MIN [facility] - IND ICD-10-CM F43.12 Post-traumatic stress disorder, chronic NAVJOTRENETTAEL A Stella IHE Encounter Template Text not used by [place] Assessments - Encounter Diagnoses This section includes the primary and secondary diagnoses documented for the Encounter. Date/Time Primary/Secondary Diagnosis Diagnosis Name Provider Source Dec 10, 2023 05:33 PM PRIMARY Post-traumatic stress disorder, chronic NAVJOT,SAKINA LA B [place] [facility] [place] [facility] Dec 10, 2023 05:33 PM SECONDARY Attention-deficit hyperactivity disorder, unspecified type NAVJOT,SAKINA LA B [place] [facility] [place] [facility] Plan of Treatment: Future Appointments (+ 6 months) and Future Tests (+/- 45 days) The Plan of Treatment section includes future care activities for the patient from all [place] [facility]. This section includes future appointments and future orders which are active, pending or scheduled. Future Appointments This section includes appointments that were scheduled to occur 6 months from the date of the Encounter, up to a maximum of 20 appointments. The data comes from all [facility]. Appointment Date/Time Appointment Type Appointme nt Facility Name Dec 24, 2023 03:00 PM AMBULATORY - MEDICINE [place] [facility] [place] [facility] Dec 31, 2023 01:00 PM AMBULATORY - PSYCHIATRY [place] [facility] [place] [facility] Feb 09, 2024 10:30 AM AMBULATORY - PSYCHIATRY [place] [facility] [place] [facility] Mar 08, 2024 10:30 AM AMBULATORY - PSYCHIATRY [place] [facility] [place] [facility] Mar 15, 2024 10:30 AM AMBULATORY - NONE [place] [facility] [place] [facility] Apr 07, 2024 11:30 AM AMBULATORY - PSYCHIATRY [place] [facility] [place] [facility] May 05, 2024 01:30 PM AMBULATORY - PSYCHIATRY [place] [facility] [place] [facility] May 31, 2024 09:30 AM AMBULATORY - PSYCHIATRY [place] [facility] [place] [facility] Jun 03, 2024 10:40 AM AMBULATORY - NONE [place] [facility] [place] [facility] Active, Pending, and Scheduled Orders This section includes a listing of several types of active, pending, and scheduled orders, including clinic medications orders, diagnostic test orders, procedure orders and consult orders; where the start date of the order is 45 days before the date of the Encounter or 45 days after the date of theEncounter. The data comes from all [facility]. Test Date/Time Test Type Test Details Facility Name Dec 16, 2023 07:00 AM Laboratory - Chemistry Order COCAINE SCREEN PANEL URINE (DRUG) [facility] [place] [facility] Dec 16, 2023 07:00 AM Laboratory - Chemistry Order OPIATES SCREEN PANEL URINE (DRUG) [facility] Dec 16, 2023 07:00 AM Laboratory - Chemistry Order OXYCODONE SCREEN PANEL URINE [facility] [place] [facility] Dec 16, 2023 07:00 AM Laboratory - Chemistry Order ALCOHOL, ETHYL URINE PANEL URINE (DRUG) SP [facility]CE [facility] [place] [facility] Dec 16, 2023 07:00 AM Laboratory - Chemistry Order AMPHETAMINES SCREEN PANEL URINE (DRUG) [facility] [place] [facility] Dec 16, 2023 07:00 AM Laboratory - Chemistry Order FENTANYL SCREEN PANEL URINE (DRUG) [facility] [place] [facility] Dec 16, 2023 07:00 AM Laboratory - Chemistry Order BENZODIAZEPINES SCREEN PANEL URINE (DRUG) SP [facility] [place] [facility] Dec 16, 2023 07:00 AM Laboratory - Chemistry Order CANNABINOIDS SCREEN PANEL URINE (DRUG) SP [place] [facility] [place] [facility] Social History: Smoking Status (Most current) and Tobacco Use (All prior to encounter date) This section includes the most current, and the historical, smoking and tobacco- related health factors from the [place] facility where the Encounter took place. Current Smoking Status This section includes the most current smoking, or tobacco-related health factor, from the [place] facility where the Encounter took place. Date/Time Current Smoking Status Comment Alf ity Jun 11, 2023 03:00 PM VA-TOBACCO NEVER USED [place] [facility] [place] [facility] Tobacco Use History This section includes a history of the smoking, or tobacco-related health factors, that were collected on or before the date of the Encounter. The data comes from the [place] facility where the Encounter took place. Date/Time Smoking Status/Tobacco Use Comment F acility Jul 11, 2022 11:30 AM VA-TOBACCO NEVER USED [facility] [place] [facility] Jul 26, 2021 08:30 AM VA-TOBACCO NEVER USED [facility] [place] [facility] Aug 22, 2020 08:30 AM VA-TOBACCO NEVER USED [facility] [place] [facility] Sep 01, 2019 02:50 PM VA-TOBACCO NEVER USED [facility] [facility] Sep 04, 2018 12:13 PM VA-TOBACCO NEVER USED [facility] [facility] Sep 11, 2017 09:16 AM LIFETIME NON-TOBACCO USER [place] [facility] [place] [facility] Jul 26, 2016 08:58 AM LIFETIME NON-TOBACCO USER [place] [facility] [facility] Jul 26, 2015 02:07 PM LIFETIME NON-TOBACCO USER [place] [facility] [place] [facility] Jun 15, 2014 02:12 PM LIFETIME NON-TOBACCO USER [place] [facility] [place] [facility] Encounter Notes: All associated encounter notes This section contains the clinical notes associated to the Encounter. Date/Time Encounter Note(s) Provider Source Dec 09, 2023 09:51 PM CLINICAL NURSE SPECIALIST NOTE: LOCAL TITLE: CLINICAL NURSE SPECIALIST/MENTAL HEALTH STANDARD TITLE: CLINICAL NURSE SPECIALIST NOTE DATE OF NOTE: DEC 09, 2023@21:51 ENTRY DATE: DEC 09, 2023@21:51:59 AUTHOR: KEVIN MORFIN EXP COSIGNER: URGENCY: STATUS: COMPLETED CLINICAL NURSE SPECIALIST/MENTAL HEALTH Has ADDENDA KORINA JONES, a 43year old WHITE MALE was seen by video today for a scheduled follow-up at [facility] for Dx: PTSD, ADHD. [place] is well known to functional tester typewriters by sight and two identifiers used and full SSN. Visit lasted 30 minutes. He is well known to functional tester typewriters by sight. Active problems - Computerized Problem List is the source for the followin. Pain in left knee 2. Low back pain 3. Tinnitus 4. Alcohol dependence 5. Erectile dysfunction 6. Posttraumatic stress disorder 7. Attention deficit without hyperactivity CHART REVIEW: is a patient of Dr. Alessio DAS [...] history of PTSD, see previous notes from [facility] and previous providers. had outside provider for a long time, has now consolidated his care to all [place]. [place] did some IREST in the past and enjoyed, he was referred for mindfulness treatment but stated there was miscommunication and he was not able to join the group. He has since declined more therapy. Continues using his own [employer] videos and is using music as his therapy. He does this daily and it is a routine that helps him cope. PAST MEDICATION TRIALS: [place] was on amphetamines from outside physician for many years for ADHD. We have consolidated care to [facility]. He continues agreeable to antidepressant and prazosin for nightmares. Doing well with no complaint of side effects or other med issues. STRENGTHS: articulate and takes interest in his health : [employer] FROM Apr TO Mar SUBJECTIVE: The was seen today for routine follow up; visit lasted for 30 minutes. [place] reports continuing to do well with amphetamines, no side effects, we had to increase his dose a bit several months ago due to the change in brands by pharmacy, but we reverted back to [place] pharmacy due to his having trouble getting meds locally at the pharmacy as well. We had been providing written prescriptions which he was filling at [facility]. This had no longer been working well, so we returned scripts to [place] recently. Other meds continue to work well with no side effects noted. [place] states he continues dealing with some PTSD [...] feels able to meet daily demands. 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 He reports that he forgot our appt last week and tried to get on late to the video, but was too late to get on the link. CURRENT SYMPTOMS CAUSING CONCERN TO : PTSD [...] and then he plans to come to phamacy later, to fern picker script. Has good hygiene and grooming. Is presenting from his auto and is calm and focused today. Eye Contact: Good. Speech: Normal rate and volume. Mood/Affect: [place] is in a calm mood today, able to relate easily and answer all questions. Smiles and interacts well with functional tester typewriters. Thought Production/Content: Logical, sequential & relevant to discussion. Perceptual Disturbances: None. Attention, concentration and memory based on answers to session questions: Good. Insight/Judgment: Both good. Ability to Provide informed consent: Yes. ASSESSMENT:43 year old WHITE MALE, presents today appearing calm and focused, in good contact. Wears warm weather appropriate outfit of cramer slacks and camoflage shirt with cap and is smiling and interacting well. Roberto is well known to functional tester typewriters by sight and visit lasted 30 minutes. [place] endorses no med side effects are present, he states understanding of the risks and benefits of all meds and wants to continue. He stated that recently the meds from [place] did seem to work well. we are at a high dose now, [...] Is reminded of resources available both at [place] and at [facility]. No new medical or mental health [...] continue same regime. All meds from this [facility] currently. Refills by [facility] now and doing well with that. He has learned how to use the esperanza and is encouraged that he can do so. 3. Reminded of [facility] if urgent needs, and Crisis Line, new number for [place]'s emergency help. Also reminded to use ER or UC if emergency. 4. Offered therapy if he [...] try a mouthgard for his sleep apnea, We also discussed the e-program to assist sleep and [place] will fern picker a brochure when he comes to [place] next visit. 7. Nightmares still bother him at times, but he feels he is doing well given his condition, he has been offered nightmare therapy, so far did not want to try this. 8. continues doing light exercise, pain has lessened and he can do more. this is encouraging for him. 9. Labs are the ones from May,labs improved, also September UDS was fine. 10. Vearmando is aware of his PACT appt and intends to attend that. 11. Problem List was reviewed today. Next [...] ER in the event of an emergency. Depression Screening: Perform PHQ-2 A PHQ-2 screen was performed. The score was 2 which is a negative screen for depression. Over the past two weeks, how often have you been bothered by the following problems? 1. Little interest or pleasure in doing things Several days 2. Feeling down, depressed, or hopeless Several days Homelessness/Food Insecurity Screen: In the past 2 months, have you been living in stable housing that you own, rent, or stay in as part of a household? Yes - Living in stable housing. Are you worried or concerned that in the next 2 months you may NOT have stable housing that you own, rent, or stay in as part of a household? No - Not worried about housing near future The reports the following: Within the past 12 months, you worried whether your food would run out before you got money to buy more. Never true Within the past 12 months, the food you bought just didn't last and you didn't have money to get more. Never true /kwadwo/ KEVIN MORFIN RN,MSN,PSYCH N.P., STAFF CLINICAL NURSE SPECIALIST Signed: 12/10/2023 17:33 12/11/2023 ADDENDUM STATUS: COMPLETED D/ T/C to and gave him the information on [employer] program. He is going to try it and is allowed to call the coach driver himself, so said he will call tomorrow. A/ Vet has chronic sleep issues. P/ Continue to monitor and support, vet likes online options. /kwadwo/ KEVIN MORFIN RN,MSN,PSYCH N.P., STAFF CLINICAL NURSE SPECIALIST Signed: 12/11/2023 17:17 KEVIN MORFIN [facility]
--- OUTSIDE RECORDS SUMMARY | 2024-09-09 13:11 | XMS_ITS ---
Author Name [facility] [place] Address [address] [place] [id number] Care Team Providers Care Emergency Medical Technician Basic Name Role Phone SHIRLEY VILLA Primary Care [...] section includes the information on record at [place] for the Encounter. Date/Time Encounter Type Encounter Description Reason Provider Source Aug 16, 2024 09:00 AM CONFORMITY EVALUATION AUDIOLOGY ICD-10-CM Z46.1 Encounter for fitting and adjustment of hearing aid ANA ORTEZ [facility] Encounter Template Text not used by [place] Assessments - Encounter Diagnoses This section includes the primary and secondary diagnoses documented for the Encounter. Date/Time Primary/Secondary Diagnosis Diagnosis Name Provider Source Aug 16, 2024 09:38 AM PRIMARY Encounter for fitting and adjustment of hearing aid ANA ORTEZ [place] [facility] [place] [facility] Aug 16, 2024 09:38 AM SECONDARY Sensorineural hearing loss, bilateral [facility] [place] [facility] Aug 16, 2024 09:38 AM SECONDARY Tinnitus, bilateral ANA ORTEZ [place] [facility] Plan of Treatment: Future Appointments (+ 6 months) and Future Tests (+/- 45 days) The Plan of Treatment section includes future care activities for the patient [facility] [place] [facility]. This section includes future appointments and future orders which are active, pending or scheduled. Future Appointments This section includes appointments that were scheduled to occur 6 months from the date of the Encounter, up to a maximum of 20 appointments. The data comes from all [place] treatment facilities. Appointment Date/Time Appointment Type Appointme nt Facility Name Sep 13, 2024 10:30 AM AMBULATORY - NONE [place] [facility] Dec 28, 2024 08:00 AM AMBULATORY - MEDICINE [place] [facility] Active, Pending, and Scheduled Orders This section includes a listing of several types of active, pending, and scheduled orders, including clinic medications orders, diagnostic test orders, procedure orders and consult orders; where the start date of the order is 45 days before the date of the Encounter or 45 days after the date of theEncounter. The data comes from all [facility] facilities. Test Date/Time Test Type Test Details Facility Name Aug 19, 2024 02:49 PM Consult Order COMMUNITY CARE-COLONOSCOPY SCREENING Cons Flight Attendant/Inflight Manager's [facility] Social History: Smoking Status (Most current) and Tobacco Use (All prior to encounter date) This section includes the most current, and the historical, smoking and tobacco- related health factors from the [place] facility where the Encounter took place. Current Smoking Status This section includes the most current smoking, or tobacco-related health factor, from the [place] facility where the Encounter took place. Date/Time Current Smoking Status Comment Alf watts Jun 11, 2023 03:00 PM [facility] Tobacco Use History This section includes a history of the smoking, or tobacco-related health factors, that were collected on or before the date of the Encounter. The data comes from the [place] facility where the Encounter took place. Date/Time Smoking Status/Tobacco Use Comment F acility Jul 11, 2022 11:30 AM [facility]ACCO [facility] Jul 26, 2021 08:30 AM [facility]ACCO [facility] [place] [facility] Aug 22, 2020 08:30 AM VA-TOBACCO NEVER USED [place] [facility] [place] [facility] Sep 01, 2019 02:50 PM VA-TOBACCO NEVER USED [place] [facility] [place] [facility] Sep 04, 2018 12:13 PM VA-TOBACCO NEVER USED [place] [facility] [place] [facility] Sep 11, 2017 09:16 AM LIFETIME NON-TOBACCO USER [place] [facility] [place] [facility] Jul 26, 2016 08:58 AM LIFETIME NON-TOBACCO USER [place] [facility] [place] [facility] Jul 26, 2015 02:07 PM LIFETIME NON-TOBACCO USER [place] [facility] [place] [facility] Jun 15, 2014 02:12 PM LIFETIME NON-TOBACCO USER [place] [facility] [place] [facility] Encounter Notes: All associated encounter notes This section contains the clinical notes associated to the Encounter. Date/Time Encounter Note(s) Provider Source Aug 16, 2024 07:41 AM AUDIOLOGY E & M NO TE: [facility] TITLE: AUDIOLOGY CLINIC STANDARD TITLE: AUDIOLOGY E & M NOTE DATE OF NOTE: AUG 16, 2024@07:41 ENTRY DATE: AUG 16, 2024@07:41:53 AUTHOR: ANA ORTEZ COSIGNER: URGENCY: STATUS: COMPLETED Dx CODE: Z46.1- Encounter for Fitting/Programming Hearing Aid(s); H90.3- Sensorineural Hearing Loss, Bilateral APPOINTMENT TYPE: Hearing Aid Fitting SUBJECTIVE (S): The patient was seen for hearing aid fitting and issuance, unaccompanied. He had previously been evaluated and found to exhibit significant hearing loss for which amplification was recommended. is a new hearing aid user. How does the patient best learn? Verbal instruction, demonstration Does the patient have any cultural and confucianist beliefs, emotional barriers, physical or cognitive limitations, and communication barriers which may impact his ability to learn? No Desire and motivation to learn? Good OBJECTIVE (O): Physical fit of hearing aids was good. Patient verified comfort. Verification of an appropriate acoustic response was obtained using Real Ear measurements (speech mapping) and NAL-NL2 targets. The patient reported good subjective benefit as well. Feedback client integration manager was run. Hearing aids were found to be meeting targets adequately and MPO was not exceeding estimated UCL. Settings stored in JUNIOR. ASSESSMENT (A): The following devices were issued: Make: FORREST Model: EDGE AI [facility] R Right Serial Number: [id number] Left Serial Number: [id number] Battery size: Rechargeable Warranty ends: 08/18/27 Trial Period ends: 01/15/25 Domes/Wax guards: Hear Clear Weaving Loom Operator: Size 2 L Earmold Information: Embedded medical laboratory scientist mold Program(s): Automatic Button(s): Short press= Synced VC, R- Raise, L- Lower Long press= Sleep mode Fitting Formula: NAL-NL2 Remote Programming: HAs are capable Bluetooth: Paired to iPhone, will download esperanza on own Counseling was completed throughout todays appointment using a standardized curriculum that includes but is not limited to; realistic expectations with amplification in adverse listening environments, acclimatization to own voice and environmental sounds (following real-ear measurements), the importance of consistent use of amplification, proper insertion/removal, care and maintenance (including wax guards/domes if applicable), signal and alerts of devices, and charging/batteries. The was provided the opportunity to practice in office and reports confidence/understanding in all items reviewed. Time Spent= 20 minutes The patient was informed of and signed/agreed to [place] policy on hearing aid issuance: Yes Users are responsible for the maintenance and security of their devices. Determination of need to replace a hearing aid is made by the [place] mortgage advisor. Hearing aids will not be replaced in cases of neglect, abuse, or excessive loss. Items issued are for personal use only. Prognosis for successful hearing aid use is good. PLAN (P): 1. Follow-up for programming/adjustments as needed. 2. The International Outcome Inventory-Hearing Aids (IOI-HEALY) will be mailed to the in four weeks. He was asked to complete and mail back to clinic after completion. Patient Education Education provided on the following topics: Hearing aid use, care, maintenance Education provided to: P Response to Education: DARRIUS GIRARD, PI Grider Patient P Family F Significant Other SO Verbalizes Understanding VU Returns Demonstration RD Performs Independently PI Lacks Comprehension LC Refused Education RE Not Applicable NA /kwadwo/ [place], CCC-A STAFF CTE TEACHER Signed: 08/16/2024 09:38 ANA ORTEZ [facility]
--- OUTSIDE RECORDS SUMMARY | 2024-09-09 13:11 | XMS_ITS ---
Author Name [facility] [place] [facility] [place] [facility] [place] [facility] [place] Address [address] [place] [address] Care Team Providers Care Roller Inspector Name Role Phone SHIRLEY VILLA Primary Care [...] Member ID Insurance Provider's Telephone Number Policy Paagn's Name Patient's Relationship to Policy Pagan Selected Encounter This section includes the information on record at [place] for the Encounter. Date/Time Encounter Type Encounter Description Reason Provider Source Dec 24, 2023 03:00 PM OFFICE O/P EST MOD 30 MIN PRIMARY CARE/MEDICINE ICD-10-CM G47.30 Sleep apnea, unspecified FURCOLO,SHIRLEY IHE Encounter Template Text not used by [place] Assessments - Encounter Diagnoses This section includes the primary and secondary diagnoses documented for the Encounter. Date/Time Primary/Secondary Diagnosis Diagnosis Name Provider Source Dec 24, 2023 03:45 PM PRIMARY Sleep apnea, unspecified FURCOLO,SHIRLEY [facility] [place] [facility] Dec 24, 2023 03:45 PM SECONDARY Attention-deficit hyperactivity disorder, unspecified type FURCOLO,SHIRLEY [facility] [place] [facility] Dec 24, 2023 03:45 PM SECONDARY Contact with and exposure to other hazardous substances FURCOLO,SHIRLEY [facility] [place] [facility] Dec 24, 2023 03:45 PM SECONDARY Low back pain, unspecified FURCOLO,SHIRLEY [facility] [place] [facility] Dec 24, 2023 03:45 PM SECONDARY Other male erectile dysfunction FURCOLO,SHIRLEY [facility] [place] [facility] Dec 24, 2023 03:45 PM SECONDARY Pain in unspecified foot FURCOLO,SHIRLEY [facility] [place] [facility] Dec 24, 2023 03:45 PM SECONDARY Post-traumatic stress disorder, chronic FURCOLO,SHIRLEY [facility] [place] [facility] Dec 24, 2023 03:45 PM SECONDARY Tinnitus, bilateral FURCOLO,SHIRLEY [facility] [place] [facility] Plan of Treatment: Future Appointments (+ 6 months) and Future Tests (+/- 45 days) The Plan of Treatment section includes future care activities for the patient from all [place] [facility]. This section includes future appointments and future orders which are active, pending or scheduled. Future Appointments This section includes appointments that were scheduled to occur 6 months from the date of the Encounter, up to a maximum of 20 appointments. The data comes from all [place] treatment facilities. Appointment Date/Time Appointment Type Appointme nt Facility Name Dec 31, 2023 01:00 PM AMBULATORY - PSYCHIATRY [facility] [place] [facility] Feb 09, 2024 10:30 AM AMBULATORY - PSYCHIATRY [facility] [place] [facility] Mar 08, 2024 10:30 AM AMBULATORY - PSYCHIATRY [facility] [place] [facility] Mar 15, 2024 10:30 AM AMBULATORY - NONE [facility] [place] [facility] Apr 07, 2024 11:30 AM AMBULATORY - PSYCHIATRY [facility] [place] [facility] May 05, 2024 01:30 PM AMBULATORY - PSYCHIATRY [facility] [place] [facility] May 31, 2024 09:30 AM AMBULATORY - PSYCHIATRY [facility] [place] [facility] Jun 03, 2024 10:40 AM AMBULATORY - NONE [facility] [place] [facility] Jun 14, 2024 03:00 PM [facility] [place] [facility] Jun 24, 2024 09:00 AM AMBULATORY - PSYCHIATRY [facility] Active, Pending, and Scheduled Orders This section includes a listing of several types of active, pending, and scheduled orders, including clinic medications orders, diagnostic test orders, procedure orders and consult orders; where the start date of the order is 45 days before the date of the Encounter or 45 days after the date of theEncounter. The data comes from all [place] treatment facilities. Test Date/Time Test Type Test Details Facility Name Dec 16, 2023 07:00 AM Laboratory - Chemistry Order COCAINE SCREEN PANEL URINE (DRUG) [facility] Dec 16[facility] 2023 07:00 AM Laboratory - Chemistry Order FENTANYL SCREEN PANEL URINE (DRUG) SP [facility] Dec 16, 2023 07:00 AM Laboratory - Chemistry Order OPIATES SCREEN PANEL URINE (DRUG) [facility] Dec 16, 2023 07:00 AM Laboratory - Chemistry Order OXYCODONE SCREEN PANEL URINE (DRUG) [facility] Dec 16, 2023 07:00 AM Laboratory - Chemistry Order ALCOHOL, ETHYL URINE PANEL URINE (DRUG) [facility] [place] [facility] Dec 16, 2023 07:00 AM Laboratory - Chemistry Order AMPHETAMINES SCREEN PANEL URINE (DRUG) [facility] Dec 16, 2023 07:00 AM Laboratory - Chemistry Order BENZODIAZEPINES SCREEN PANEL URINE (DRUG) [facility] Dec 16, 2023 07:00 AM Laboratory - Chemistry Order CANNABINOIDS SCREEN PANEL URINE (DRUG) [facility] Vital Signs: All taken on the encounter date This section contains inpatient and outpatient Vital Signs collected on the date of the Encounter. Date/Time Temperature Pulse Blood Pressure Respiratory Rate SP02 Pain Height Weight Body Mass Index Source Dec 24, 2023 03:11 PM 98.3 89 131/85 16 97 0 191 29 [facility] Social History: Smoking Status (Most current) and Tobacco Use (All prior to encounter date) This section includes the most current, and the historical, smoking and tobacco- related health factors from the [place] facility where the Encounter took place. Current Smoking Status This section includes the most current smoking, or tobacco-related health factor, from the [place] facility where the Encounter took place. Date/Time Current Smoking Status Comment Alf watts Jun 11, 2023 03:00 PM VA-TOBACCO NEVER USED [facility] [place] [facility] Tobacco Use History This section includes a history of the smoking, or tobacco-related health factors, that were collected on or before the date of the Encounter. The data comes from the [place] facility where the Encounter took place. Date/Time Smoking Status/Tobacco Use Comment Jay acmio Jul 11, 2022 11:30 AM VA-TOBACCO NEVER USED [facility] [place] [facility] Jul 26, 2021 08:30 AM VA-TOBACCO NEVER USED [facility] [place] [facility] Aug 22, 2020 08:30 AM VA-TOBACCO NEVER USED [facility] [place] [facility] Sep 01, 2019 02:50 PM VA-TOBACCO NEVER USED [facility] [place] [facility] Sep 04, 2018 12:13 PM VA-TOBACCO NEVER USED [facility] [place] [facility] Sep 11, 2017 09:16 AM LIFETIME NON-TOBACCO USER [facility] [place] [facility] Jul 26, 2016 08:58 AM LIFETIME NON-TOBACCO USER [facility] [place] [facility] Jul 26, 2015 02:07 PM LIFETIME NON-TOBACCO USER [facility] [place] [facility] Jun 15, 2014 02:12 PM LIFETIME NON-TOBACCO USER [facility] [place] [facility] Encounter Notes: All associated encounter notes This section contains the clinical notes associated to the Encounter. Date/Time Encounter Note(s) Provider Source Dec 24, 2023 03:15 PM PHYSICIAN NOTE: LOCAL TITLE: NOTE STANDARD TITLE: PHYSICIAN NOTE DATE OF NOTE: DEC 24, 2023@15:15 ENTRY DATE: DEC 24, 2023@15:15:02 AUTHOR: SHIRLEY VILLA EXP COSIGNER: URGENCY: STATUS: KORINA GRANDE is a 43 year old who is being seen today in primary care for routine follow up. === CARE TEAM === Community Primary Care Provider: none [facility] Specialists: JOVAN Chiropractor respiratory- EMILIA Community Specialists: urology - [facility]- Dr. 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 Exposure to potentially hazardous substance ([facility] [id number]) Entered automatically through [facility] Problem List documentation program 2. Sleep apnea AHI--9.7/hr- hard to use cpap, referred to [facility] for dental device 3. Bilateral chronic pain of feet 4. Pain in left knee 5. Low back pain 6. Tinnitus 7. Erectile dysfunction (SNOMED CT [id number]) has sildenafil order 8. Posttraumatic stress disorder continues with symptoms ongoing symptoms referral for PTSD options class doing IREST as available, consult for CBT-I and info for [facility] doing meditation now daily continues with meditation on his own start mindfulness group on methyphenidate for same doing meditation exercises continues meditation at home 9. Attention deficit without hyperactivity - sees MH === PAST SURGICAL HISTORY === tonsillectomy === FAMILY HISTORY === Mother: alive, DM Father: , copd/lungs Siblings: 3, brother - diabetes no colon ca, no prostate ca === SOCIAL HISTORY === Background: born and raised in [place], [place], masters degree in Business Marital Status: Children: 3, ages 15, 19, 20 Lives with: and 2 kids Employment Status: own [employer] business Alcohol Use: daily- 1 glass of wine daily, previous heavy Tobacco Use: cigars 1x per month Drug Use: none Exercise: daily work out === ALLERGIES === Patient has answered NKA === MEDICATIONS === VA and Non VA meds were reconciled with the patient who left with a corrected copy. Active and Recently Outpatient Medications (excluding Supplies): Active Outpatient Medications Status 1) AMPHETAMINE/DEXTROAMPHET 20MG SA CAP TAKE ONE CAPSULE ACTIVE BY MOUTH THREE TIMES A DAY (NEXT FILL 01/12/24) 2) BUPROPION HCL 100MG TAB TAKE ONE AND ONE-HALF TABLETS ACTIVE (S) BY MOUTH TWICE DAILY FOR DEPRESSION (TAKE SECOND DOSE BY 5PM) 3) PRAZOSIN HCL 1MG CAP TAKE ONE CAPSULE BY MOUTH AT ACTIVE (S) BEDTIME FOR NIGHTMARES Inactive Outpatient Medications Status 1) FLUTICASONE PROP 50MCG 120D NASAL INHL INSTILL 1 SPRAY INTO EACH NOSTRIL TWICE DAILY NEEDED FOR NASAL IRRITATION/INFLAMMATION Active Non-VA Medications Status 1) Non-VA TESTOSTERONE CYP 200MG/ML 1ML IN OIL 0.5ML ACTIVE (100MG) INTRAMUSCULARLY ONCE A WEEK 5 Total Medications === REVIEW OF SYMPTOMS === NEGATIVE FOR: CONSTITUTION: no weight loss/gain, fatigue, fevers, night sweats HEENT: no vision problems, hearing loss,swallowing difficulties, sinus pain CV: no chest pain, palpitations, dyspnea on exertion, orthopnea RESP: no cough, shortness of breath, wheezing GI: no abdominal pain, N/V/D, constipation, blood in stool, normal appetite : no urinary frequency, nocturia, hematuria MUSC: no joint pain, joint swelling, muscle aches NEURO: no headaches, dizziness, memory loss, tremor, weakness PSYCH: no depression, anxiety, suicidal or homicidal thoughts SKIN: no rash, new skin lesions === PHYSICAL EXAM === Vitals: - - - - - - - B/P: 131/85 (12/24/2023 15:11) pulse: 89 (12/24/2023 15:11) resp: 16 (12/24/2023 15:11) temp: 98.3 F [36.8 C] (12/24/2023 15:11) Ht: 68 in [172.7 cm] (05/25/2019 15:30) Wgt: 191 lb [86.64 kg] (12/24/2023 15:11) BMI: BMI: 29.1 Exam: - - - - - - - General: A&O x 3, no acute distress, normal affect and mood Neck: normal thyroid, normal carotids- no bruits CV: RRR S1S2, no murmur Resp: LCTA bilat, no wheezing, rales or rhonchi Neuro: grossly intact, no visible tremor, normal memory and speech Extremities: normal movement of extremities, normal gait, normal strength no LE edema === RECENT LABS === BMP (FASTING) Collection DT Specimen Test Name Result Units Ref Range 06/04/2023 08:04 [facility] UREA NITROGEN 26 H mg/dL 7 - 25 06/04/2023 08:04 [facility] GLUCOSE 74 mg/dL 65 - 100 06/04/2023 08:04 SERUM SODIUM 140 mmol/L 135 - 145 06/04/2023 08:04 [facility] POTASSIUM 4.4 mmol/L 3.5 - 5.0 06/04/2023 08:04 [facility]UM CHLORIDE 104 mmol/L 100 - 110 06/04/2023 08:04 SERUM CO2 27 mEq/L 20 - 30 06/04/2023 08:04 [facility] CREATININE, Serum 0.96 mg/dL 0.50 - 1.40 04/23/2021 12:25 SERUM eGFR (IDMS) >60 Ref: >=60 LIVER PANEL TREND Collection DT Spec AST ALT T BILI ALK GABRIELE T. PROT ALBUMIN 06/04/2023 08:04 SERUM 16 28 0.6 54 7.1 4.3 09/11/2022 08:18 SERUM 14 19 0.6 51 6.9 4.1 03/22/2022 08:42 SERUM 18 37 0.4 52 7.4 4.2 04/23/2021 12:25 SERUM 17 19 0.4 49 7.3 4.3 12/02/2019 09:30 SERUM 16 19 0.7 50 7.1 4.2 LIPID PANEL TREND Collection DT Spec CHOL HDL CHO/HDL LDL-c TRIG 06/04/2023 08:04 SERUM 204 H 66 H 3.1 118 100 09/11/2022 08:18 SERUM 223 H 56 4.0 143 H 122 03/22/2022 08:42 SERUM 248 H 54 4.6 155 H 194 H 04/23/2021 12:25 SERUM 219 H 59 3.7 133 H 137 12/02/2019 09:30 SERUM 237 H 53 4.5 157 H 135 CBC TREND Collection DT Spec WBC RBC HGB HCT MCV MCH PLT 06/04/2023 08:04 BLOOD 4.32 L 5.58 16.7 48.8 87.5 29.9 215 03/22/2022 08:42 BLOOD 6.54 5.67 H 16.1 48.5 85.5 28.4 222 04/23/2021 12:25 BLOOD 6.85 5.24 15.0 45.5 86.8 28.6 236 12/02/2019 09:30 BLOOD 6.45 5.40 16.1 47.6 88.1 29.8 191 09/29/2017 12:14 BLOOD 7.16 5.49 16.3 47.0 85.6 29.7 231 HEMOGLOBIN A1C TREND Collection DT Spec HGBA1c 06/04/2023 08:04 BLOOD 5.1 === ASSESSMENT AND PLAN === Active problems - Computerized Problem List is the source for the followin. Exposure to potentially hazardous substance ([facility] [id number]) Entered automatically through [facility] Problem List documentation program 2. Sleep apnea AHI--9.7/hr- cn;t tolerate cpap, getting eval for dental device. does have daytime fatigue and daily mild HEALY 3. Bilateral chronic pain of feet 4. Pain in left knee 5. Low back pain 6. Tinnitus 7. Erectile dysfunction (SNOMED CT [id number]) sees [facility]- prescribes testosterone 8. Posttraumatic stress disorder- sees , on prazosin 9. Attention deficit without hyperactivity ongoing symptoms - sees - stable on medications === HEALTH MAINTENANCE === Colonoscopy (due at age 44) - due at age 44- agrees to do Abdominal Aortic Aneurysm Screening - n/a nonsmoker Prostate screening - sees urology Tetanus: due every 10 years Pneumonia Vacccine: Flu Vaccine: due yearly Covid Vaccine: due yearly === FOLLOW UP === f/u in 1 year VISIT TYPE:a MODERATE complexity visit where 30 minutes was spent in direct patient care, review of records and documentation. Upcoming Appointments: 12/31/2023 13:00 CWM/NO/VVC/MHC/PEDIATRIC SPEECH THERAPIST ROGELIO 03/15/2024 10:30 [facility] 4 AM 04/26/2024 10:30 [facility] 4 AM /kwadwo/ Maicol BARCLYAO. PHYSICIAN Signed: 12/24/2023 15:45 [facility]ILL[facility]
--- OUTSIDE RECORDS SUMMARY | 2024-09-09 13:11 | XMS_ITS ---
Author Name [facility] [place] Organization [facility] [place] Address [address] [place] [address] Care Team Providers Care Music Adapter Name Role Phone SHIRLEY VILLA Primary Care [...] section includes the information on record at [place] for the Encounter. Date/Time Encounter Type Encounter Description Reason Provider Source October 09, 2023 10:00 AM PSYTX W PT W E/M 30 [facility] - IND ICD-10-CM F43.12 Post-traumatic stress disorder, chronic NAVJOTEVANGELINA A Stella IHE Encounter Template Text not used by [place] Assessments - Encounter Diagnoses This section includes the primary and secondary diagnoses documented for the Encounter. Date/Time Primary/Secondary Diagnosis Diagnosis Name Provider Source October 09, 2023 10:21 AM PRIMARY Post-traumatic stress disorder, chronic NAVJOT,SAKINA LA B [place] [facility] [place] [facility] October 09, 2023 10:21 AM SECONDARY Attention-deficit hyperactivity disorder, unspecified type NAVJOT,SAKINA LA B [place] [facility] [place] [facility] Plan of Treatment: Future Appointments (+ 6 months) and Future Tests (+/- 45 days) The Plan of Treatment section includes future care activities for the patient from all [place] [facility]. This section includes future appointments and future orders which are active, pending or scheduled. Future Appointments This section includes appointments that were scheduled to occur 6 months from the date of the Encounter, up to a maximum of 20 appointments. The data comes from all [place] treatment facilities. Appointment Date/Time Appointment Type Appointme nt Facility Name Nov 06, 2023 10:30 AM AMBULATORY - PSYCHIATRY [place] [facility] [place] [facility] Dec 03, 2023 10:30 AM AMBULATORY - PSYCHIATRY [place] [facility] [place] [facility] Dec 10, 2023 11:00 AM AMBULATORY - PSYCHIATRY [place] [facility] [place] [facility] Dec 24, 2023 03:00 PM AMBULATORY - MEDICINE [place] [facility] [place] [facility] Dec 31, 2023 01:00 PM AMBULATORY - PSYCHIATRY [place] [facility] [place] [facility] Feb 09, 2024 10:30 AM AMBULATORY - PSYCHIATRY [place] [facility] [place] [facility] Mar 08, 2024 10:30 AM AMBULATORY - PSYCHIATRY [place] [facility] [place] [facility] Mar 15, 2024 10:30 AM AMBULATORY - NONE [place] [facility] [place] [facility] Apr 07, 2024 11:30 AM [facility] Lab Results: +/- 30 days of the encounter This section includes the Chemistry and Hematology Lab Results on record with [place] for the patient. Radiology Reports and Pathology Reports are provided separately, in subsequent sections. Lab Results This section contains the Chemistry/Hematology Results that were resulted 30 days before or 30 daysafter the date of the Encounter. Date/Time Source Result Type Result - Unit Interpretation Reference Range Specimen Type Comment October 09, 2023 10:38 [facility] ALCOHOL, ETHYL URINE PANEL URINE Specimen Typ [...] October 09, 2023 10:16 AM Reporting Lab: [address] [id number] Performing Lab: [address] [address] ALCOHOL, ETHYL URINE NONE-DETECTED mg/dL NONE-DETECTED, cutoff = 10 mg/dL PH, SHARRON 7.0 [pH] 4-10 CREATININE, SHARRON 102.27 mg/dL >20 SP.GRAVITY, SHARRON 1.020 1.003-1.020 October 09, 2023 10:38 AM [facility] AMPHETAMINES SCREEN PANEL URINE Specimen Type : [...] October 09, 2023 10:16 AM Reporting Lab: [address] [address] Performing Lab: [address] [address] AMPHETAMINES SCREEN NONE-DETECTED None-D etected, Cutoff = 1000 ng/mL PH, SHARRON 7.0 [pH] 4-10 CREATININE, SHARRON 102.27 mg/dL >20 SP.GRAVITY, SHARRON 1.020 1.003-1.020 October 09, 2023 10:38 AM [facility] BENZODIAZEPINES SCREEN PANEL URINE Specimen T ype: [...] October 09, 2023 10:16 AM Reporting Lab: [address] [address] Performing Lab: [address] [address] BENZODIAZEPINES SCREEN NONE-DETECTED Non e-Detected, Cutoff = 200 ng/mL PH, SHARRON 7.0 [pH] 4-10 CREATININE, SHARRON 102.27 mg/dL >20 SP.GRAVITY, SHARRON 1.020 1.003-1.020 October 09, 2023 10:38 AM [facility] CANNABINOIDS SCREEN PANEL URINE Specimen Type : [...] October 09, 2023 10:16 AM Reporting Lab: [address] [address] Performing Lab: [address] [address] CANNABINOIDS SCREEN NONE-DETECTED None-D etected,Cutoff = 50 ng/mL PH, SHARRON 7.0 [pH] 4-10 CREATININE, SHARRON 102.27 mg/dL >20 SP.GRAVITY, SHARRON 1.020 1.003-1.020 October 09, 2023 10:38 AM [facility] COCAINE SCREEN PANEL URINE Specimen Type: URI [...] October 09, 2023 10:16 AM Reporting Lab: [address] [address] Performing Lab: [address] [address] COCAINE SCREEN NONE-DETECTED None-Detect ed,Cutoff = 300 ng/mL PH, SHARRON 7.0 [pH] 4-10 CREATININE, SHARRON 102.27 mg/dL >20 SP.GRAVITY, SHARRON 1.020 1.003-1.020 October 09, 2023 10:38 AM [facility] FENTANYL SCREEN PANEL URINE Specimen Type: UR [...] October 09, 2023 10:16 AM Reporting Lab: [address] [address] Performing Lab: [address] [address] FENTANYL SCREEN NONE-DETECTED ng/mL Nega tive: Cutoff = 1.00 ng/mL PH, SHARRON 7.0 [pH] 4-10 CREATININE, SHARRON 102.07 mg/dL >20 SP.GRAVITY, SHARRON 1.020 1.003-1.020 October 09, 2023 10:38 AM [facility] OPIATES SCREEN PANEL URINE Specimen Type: URI [...] October 09, 2023 10:16 AM Reporting Lab: [place] [facility] [address] [facility] [address] Performing Lab: [place] [facility] [place] [facility] [address] [facility] [address] OPIATES SCREEN NONE-DETECTED None-Detect ed, Cutoff = 300 ng/mL PH, SHARRON 7.0 [pH] 4-10 CREATININE, SHARRON 102.27 mg/dL >20 SP.GRAVITY, SHARRON 1.020 1.003-1.020 Social History: Smoking Status (Most current) and Tobacco Use (All prior to encounter date) This section includes the most current, and the historical, smoking and tobacco- related health factors from the [place] facility where the Encounter took place. Current Smoking Status This section includes the most current smoking, or tobacco-related health factor, from the [place] facility where the Encounter took place. Date/Time Current Smoking Status Comment Alf watts Jun 11, 2023 03:00 PM VA-TOBACCO NEVER USED [place] [facility] [place] [facility] Tobacco Use History This section includes a history of the smoking, or tobacco-related health factors, that were collected on or before the date of the Encounter. The data comes from the [place] facility where the Encounter took place. Date/Time Smoking Status/Tobacco Use Comment F acility Jul 11, 2022 11:30 AM VA-TOBACCO NEVER USED [place] [facility] [place] [facility] Jul 26, 2021 08:30 AM VA-TOBACCO [...] 26, 2016 08:58 AM LIFET[facility] [place] [facility] Jul 26, 2015 02:07 PM LIFET[facility]AC[facility] [place] [facility] Jun 15, 2014 02:12 PM LIFETIME NON-TOBACCO USER [facility] Encounter Notes: All associated encounter notes This section contains the clinical notes associated to the Encounter. Date/Time Encounter Note(s) Provider Source October 09, 2023 08:36 PM CLINICAL NURSE SPECIALIST NOTE: LOCAL TITLE: CLINICAL NURSE SPECIALIST/MENTAL HEALTH STANDARD TITLE: CLINICAL NURSE SPECIALIST NOTE DATE OF NOTE: OCTOBER 09, 2023@20:36 ENTRY DATE: OCTOBER 09, 2023@20:36:17 AUTHOR: JANNA MORFIN EXP COSIGNER: URGENCY: STATUS: COMPLETED KORINA JONES, a 43year old WHITE MALE was seen by video today for a [place] [facility] [place]x: PTSD, ADHD. is well known to display card writer and two identifiers used and full SSN. Vearmando was seated in his auto while driving on the road to [place]. Dressed in cap, light beige jacket and button down white shirt. Visit lasted 30 minutes. He is well known to display card writer by sight. Active problems - Computerized Problem List is the source for the followin. Pain in left knee 2. Low back pain 3. Tinnitus 4. Alcohol dependence 5. Erectile dysfunction 6. Posttraumatic stress disorder 7. Attention deficit without hyperactivity CHART REVIEW: is a patient of Dr. Oliva, PACT 1 and is followed by the respiratory department for sleep apnea. Had medical appt in August got more help with his medical issues from medical rehab. He is still working with the sleep apnea machine to sleep better, also has nasal spray to help him sleep which is working. Sleep apnea remains troublesome at times. PAST PSYCHIATRIC HISTORY: long history of PTSD, see previous notes from INSTRUMENT MAINTENANCE SUPERVISOR and previous providers. Paty had outside provider for a long time, has now consolidated his care to all [place]. Paty did some IREST in the past and enjoyed, he was referred for mindfulness treatment but stated there was miscommunication and he was not able to join the group. He has since declined more therapy. Continues using his own [employer] videos and is using music as his therapy. He does this daily and it is a routine that helps him cope. PAST MEDICATION TRIALS: was on amphetamines from outside physician for many years for ADHD. We have consolidated care to [facility]. He continues agreeable to antidepressant and prazosin for nightmares. Doing well with no complaint of side effects or other med issues. STRENGTHS: articulate and takes interest in his health : goviral FROM Apr TO Mar SUBJECTIVE: The [place] was seen today for routine follow up; visit lasted for 30 minutes. [place] reports continuing to do well with amphetamines, no side effects, we had to increase his dose a bit several months ago due to the change in brands by pharmacy, and he again states the [place] brand of meds has not worked for him as well, but again wants to trial this to see if there is any improvement. We had been providing written prescriptions which he was filling at [facility]. This is no longer working well, so he wants to return to [place] medication. Other meds continue to work well with no side effects cited. states he continues dealing with PTSD symptoms but still declines any new therapy or meds. He continues using some mindfulness techniques that he learned online and in IREST. Continues doing daily exercise which helps him stay focused as well. CPAP and nasal spray continue somewhat helpful with night breathing, however CPAP is so difficult, he often cannot use it. He still gets only about 4 hours [...] get the machine to work well for him. He is waiting to see if a mouthgard will [...] Cooperative. Seen via [facility] and then he did come to clinic as well to machine operator picker script. Has good hygiene and grooming. Is presenting from his auto and is calm and focused today. Eye Contact: Good. Speech: Normal rate and volume. Mood/Affect: is in a calm mood today, able to relate easily and answer all questions. Smiles and interacts well with display card writer. Thought Production/Content: Logical, sequential & relevant to discussion. Perceptual Disturbances: None. Attention, concentration and memory based on answers to session questions: Good. Insight/Judgment: Both good. Ability to Provide informed consent: Yes. ASSESSMENT:43 year old WHITE MALE, presents today appearing calm and focused, in good contact. Wears warm weather apprpriate outfit with cap and is smiling and interacting well. Vet is well known to display card writer by sight and visit lasted 30 minutes. endorses no med side effects are present, he states understanding of the risks and benefits of all meds and wants to continue. He hadchanged to local pharmacy for amphetamine but now and is having trouble getting them due to the national shortage. He wants to return to [facility] for refill, so will do that today. No drug use and continues with four or five isadora per week, ongoing, for his alcohol use amount. Continues not to feel this amount of alcohol is an issue for him, he feels better when he drinks moderately, per his report. Paty endorses feeling stable on antidepressant and current sleep med, plus amphetamine. 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 He continues to decline conventional therapy for MH. Is reminded of resources available both at [place] and at [facility]. No new medical or mental health concerns today. things overall are going well, family is supportive. Paty now appears (x)stable psychiatrically ()unstable psychiatrically [...] same regime. Gets amphetamine outside now at [facility]. Other meds from this [facility]. Refills by [facility] now and doing well with that. 2. Has continued using [facility] for refills and other needs, he feels more comfortable with the modality now. 4. Reminded of [facility] if urgent needs, and Crisis Line, new number for [place]'s emergency help. Also reminded to use ER or UC if emergency. 5. Offered therapy if he needs it, continues to prefer apps online and he has one he uses daily for mindfulness. Continues doing online yoga and meditation. 6. Sleep is staying the same, he had a respiratory appt and he is being seen in sleep clinic to have more evaluation. He continues using nasal spray with some effect to help his night breathing. Nightmares still bother him at times, but he feels he is doing well given his condition, he has been offered nightmare therapy, so far did not want to try this. Also wants to try a mouthgard for his sleep apnea, since machine is not helping as much and he is not tolerating it now. 7. continues doing light exercise, pain has lessened and he can do more. this is encouraging for him. 8. Labs are the ones from May,labs improved, UDS was fine. Roberto states he will machine operator picker paper amphetamine script today, has good outcome getting med from [facility], it works a lot better. 9. Roberto had his PACT appt cancelled for November so he is reminded to call and reschedule with new PCP. 10. Problem List was reviewed today. Next Visit: [...] a VA or non-VA provider. /kwadwo/ JANNA MORFIN RN,MSN,PSYCH N.P., STAFF CLINICAL NURSE SPECIALIST Signed: 10/09/2023 20:45 JANNA MORFIN [facility] October 09, 2023 10:20 AM ACCOUNTING OF DISCLOSURES NOTE: LOCAL TITLE: STATE PRESCRIPTION DRUG MONITORING PROGRAM STANDARD TITLE: ACCOUNTING OF DISCLOSURES NOTE DATE OF NOTE: OCTOBER 09, 2023@10:20:33 ENTRY DATE: OCTOBER 09, 2023@10:20:33 AUTHOR: JANNA MORFIN EXP COSIGNER: URGENCY: STATUS: COMPLETED This PDMP query was submitted by Janna Morfin [facility]. The clinical justification for this PDMP query is to review controlled substances prescribed outside of the [place], and any additional information that may become available, as an important component of standard clinical care, and in accordance with [facility] policy. Patient information was shared with the PDMP Appriss [place]. Prescription(s) filled outside the [facility] in the last 90 days are noted. However, they do not raise significant safety concerns and do not influence the treatment plan at this time. Same regime, gets testosterone outside, ongoing. /kwadwo/ JANNA MORFIN RN,MSN,PSYCH N.P., STAFF CLINICAL NURSE SPECIALIST Signed: 10/09/2023 10:21 JANNA MORFIN [facility]
--- OUTSIDE RECORDS SUMMARY | 2024-09-09 13:11 | XMS_ITS | Encounter Summary ---
Author Name [facility] [place] [facility] [facility] [place] Address [address] [place] [address] Care Team Providers Care Manager Power Name Role Phone SHIRLEY VILLA Primary Care [...] Encounter Type Encounter Description Reason Provider Source Feb 09, 2024 10:30 AM PSYTX W PT W E/M 30 [facility] - IND ICD-10-CM F43.12 Post-traumatic stress disorder, chronic NAVJOTEVANGELINA A Stella IHE Encounter Template Text not used by [place] Assessments - Encounter Diagnoses This section includes the primary and secondary diagnoses documented for the Encounter. Date/Time Primary/Secondary Diagnosis Diagnosis Name Provider Source Feb 09, 2024 07:55 PM PRIMARY Post-traumatic stress disorder, chronic NAVJOT,SAKINA LA B [facility] Feb 09, 2024 07:55 PM SECONDARY Attention-deficit hyperactivity disorder, unspecified type NAVJOTSAKINA LA B [facility] Plan of Treatment: Future Appointments (+ 6 months) and Future Tests (+/- 45 days) The Plan of Treatment section includes future care activities for the patient from all [place] [facility] This section includes future appointments and future orders which are active, pending or scheduled. Future Appointments This section includes appointments that were scheduled to occur 6 months from the date of the Encounter, up to a maximum of 20 appointments. The data comes from all [place] treatment facilities. Appointment Date/Time Appointment Type Appointme nt Facility Name Mar 08, 2024 10:30 AM [facility] Mar 15, 2024 10:30 AM [facility] Apr 07, 2024 11:30 AM [facility] May 05, 2024 01:30 PM [facility] May 31, 2024 09:30 AM [facility] Jun 03, 2024 10:40 AM [facility] Jun 14, 2024 03:00 PM AMBULATORY - [facility]AB MEDICIN [facility] Jun 24, 2024 09:00 AM [facility] Aug 05, 2024 09:00 AM [facility] Social History: Smoking Status (Most current) [...] 11, 2023 03:00 PM VA-TOBACCO NEVER USED [facility] Tobacco Use History This section includes a history of the smoking, or tobacco-related health factors, that were collected on or before the date of the Encounter. The data comes from the [place] facility where the Encounter took place. Date/Time Smoking Status/Tobacco Use Comment F acility Jul 11, 2022 11:30 AM VA-TOBACCO NEVER USED [facility] Jul 26, 2021 08:30 AM VA-TOBACCO NEVER USED [facility] Aug 22, 2020 08:30 AM VA-TOBACCO NEVER USED [facility] Sep 01, 2019 02:50 PM VA-TOBACCO NEVER USED [facility] Sep 04, 2018 12:13 PM VA-TOBACCO NEVER USED [facility] Sep 11, 2017 09:16 AM LIFETIME NON-TOBACCO USER [facility] Jul 26, 2016 08:58 AM LIFETIME NON-TOBACCO USER [facility] Jul 26, 2015 02:07 PM LIFETIME NON-TOBACCO USER [facility] Jun 15, 2014 02:12 PM LIFETIME NON-TOBACCO USER [facility] Encounter Notes: All associated encounter notes This section contains the clinical notes associated to the Encounter. Date/Time Encounter Note(s) Provider Source Feb 09, 2024 07:54 PM CLINICAL NURSE SPECIALIST NOTE: LOCAL TITLE: CLINICAL NURSE SPECIALIST/MENTAL HEALTH STANDARD TITLE: CLINICAL NURSE SPECIALIST NOTE DATE OF NOTE: FEB 09, 2024@19:54 ENTRY DATE: FEB 09, 2024@19:54:17 AUTHOR: JANNA MORFIN EXP COSIGNER: URGENCY: STATUS: COMPLETED KORINA JONES, a 43year old WHITE MALE was seen by video today for a scheduled follow-up at [facility] for Dx: PTSD, ADHD. is well known to chief underwriter by sight and two identifiers used and full SSN. Visit lasted 30 minutes. He is well known to chief underwriter by sight. Active problems - Computerized [...] history of PTSD, see previous notes from [facility] and previous providers. [place] had outside provider for a long time, has now consolidated his care to all [place]. did some IREST in the past and enjoyed, he was referred for mindfulness treatment but stated there was miscommunication and he was not able to join the group. He has since declined more therapy. Continues using his own [employer] videos and is using music as his therapy. He does this daily and it is a routine that helps him cope. PAST MEDICATION TRIALS: was on amphetamines from outside physician for many years for ADHD. We have consolidated care to [facility]. He continues agreeable to antidepressant and prazosin for nightmares. Doing well with no complaint of side effects or other med issues. STRENGTHS: articulate and takes interest in his health : [employer] FROM Apr TO Mar SUBJECTIVE: The was seen today for routine follow up; visit lasted for 30 minutes. reports continuing to do well with amphetamines, no side effects endorsed, we had to increase his dose a bit several months ago due to the change in brands by pharmacy, but we reverted back to [place] pharmacy due to his having trouble getting meds locally at the pharmacy as well. We had been providing written prescriptions which he was filling at [facility]. This had no longer been working well, so we returned scripts to [place] and at the increased dose he is [...] plans to come to phamacy later, to corn picker script. Has good hygiene and grooming. Is presenting from outside, walking in the sun and states he is enjoying the weather and feeling positive. Presents calm and focused today. Eye Contact: Good. Speech: Normal rate and volume. Mood/Affect: is in a calm mood today, able to relate easily and answer all questions. Smiles and interacts well with chief underwriter. Thought Production/Content: Logical, sequential & relevant to discussion. Perceptual Disturbances: None. Attention, concentration and memory based on answers to session questions: Good. Insight/Judgment: Both good. Ability to Provide informed consent: Yes. ASSESSMENT:43 year old WHITE MALE, presents today in his truck appearing in good contact, relevant and comfortable. Wears weather appropriate outfit of blue shirt and bland slacks. He is smiling and interacting well. [facility] is well known to chief underwriter by sight and visit lasted 30 minutes. Paty endorses no med side effects are present, he states understanding of the risks and benefits of all meds and wants to continue. Since [place] meds were not working as well, we [...] of resources available to him both at [place] and at [facility]. Also reminded of [facility] if any urgent needs arise, and he [...] continue same regime. All meds from this [facility] currently. Refills by [facility] now and he is doing well with that modality no. He has learned how to use the esperanza and continues using that. 3. Reminded of [facility] if urgent needs, and Crisis Line, new number for [facility]'s emergency help. Also reminded to use ER [...] info on online therapy for sleep, but is not wanting to consider at present. 7. Nightmares still [...] whether with a VA or non-VA provider. Outpatient: Has the patient been taking medications [...] a VA or non-VA provider. /kwadwo/ JANNA Douglas. BELLO MORFIN,MSN,PSYCH N.P., STAFF CLINICAL NURSE SPECIALIST Signed: 02/09/2024 19:55 JANNA MORFIN [facility] Feb 09, 2024 10:34 AM ACCOUNTING OF DISCLOSURES NOTE: LOCAL TITLE: STATE PRESCRIPTION DRUG MONITORING PROGRAM STANDARD TITLE: ACCOUNTING OF DISCLOSURES NOTE DATE OF NOTE: FEB 09, 2024@10:34:04 ENTRY DATE: FEB 09, 2024@10:34:04 AUTHOR: JANNA MORFIN EXP COSIGNER: URGENCY: STATUS: COMPLETED This PDMP query was submitted by Janna Morfin [facility]. The clinical justification for this PDMP query is to review controlled substances prescribed outside of the [facility], and any additional information that may become available, as an important component of standard clinical care, and in accordance with [facility] policy. Patient information was shared with the PDMP [place]. Prescription(s) filled outside the [facility] in the last 90 days are noted. However, they do not raise significant safety concerns and do not influence the treatment plan at this time. Has one script outside for testosterone /kwadwo/ JANNA Douglas. BELLO MORFIN,MSN,PSYCH N.P., STAFF CLINICAL NURSE SPECIALIST Signed: 02/09/2024 10:53 JANNA MORFIN [facility]
[2024-09-09 14:09] VITALS: BMI 28.1
--- NOTE | 2024-09-10 09:23 | HO.ANESPROP2 ---
Documented by User: Cathy Randall NP 09/10/24 09:23 HPI - Anesthesia Eval Consult details Narrative: 44yo M for Colonoscopy [facility] Past Medical History Medical History (Updated 09/09/24 @ 14:20 by Addis Espinoza RN) Erectile dysfunction ADHD (attention deficit hyperactivity disorder) Surgical History Surgical History (Updated 09/09/24 @ 14:10 by Addis Espinoza RN) Hx of vasectomy Hx of tonsillectomy Social History Social History (Updated 09/09/24 @ 14:10 by Addis Espinoza RN) Household Members: Spouse Patient Tobacco Use Status: Never used Tobacco Advance Directives: No Advance Directives Information Provided: Yes Meds Allergies Allergy/AdvReac Type Severity Reaction Status Date / Time spider venom [spider bites] Allergy Intermediate Rash Verified 09/13/24 10:08 Home Medications ?Medication ?Instructions ?Recorded ?Confirmed ?Last Taken ?Type chorionic gonadotropin, human 500 unit IM 3XW 09/09/24 09/09/24 Unknown History 10,000 unit IM powder for solution (Pregnyl) dextroamphetamine-amphetamine 30 30 mg PO TID 09/09/24 09/13/24 09/13/24 History mg tablet (Adderall) testosterone cypionate 200 mg/mL 120 mg IM QWEEK 09/09/24 09/09/24 Unknown History intramuscular oil Exam Height,Weight and Vital Signs: Height 5 ft 9 in Weight 86.183 kg Assessment and Plan Assessment Anesthesia Assessment: Chart Reviewed Documented by User: Nathaniel Brantley MD 09/13/24 10:10 [facility] Past Medical History Medical History (Updated 09/09/24 @ 14:20 by Addis Espinoza RN) Erectile dysfunction ADHD (attention deficit hyperactivity disorder) Family History Family history of problems with anesthesia: No Surgical History Surgical History (Updated 09/09/24 @ 14:10 by Addis Espinoza RN) Hx of vasectomy Hx of tonsillectomy History of Problems with Anesthesia: No Social History Social History (Updated 09/09/24 @ 14:10 by Addis Espinoza RN) Household Members: Spouse Patient Tobacco Use Status: Never used Tobacco Advance Directives: No Advance Directives Information Provided: Yes Meds Allergies Allergy/AdvReac Type Severity Reaction Status Date / Time spider venom [spider bites] Allergy Intermediate Rash Verified 09/13/24 10:08 Home Medications ?Medication ?Instructions ?Recorded ?Confirmed ?Last Taken ?Type chorionic gonadotropin, human 500 unit IM 3XW 09/09/24 09/09/24 Unknown History 10,000 unit IM powder for solution (Pregnyl) dextroamphetamine-amphetamine 30 30 mg PO TID 09/09/24 09/13/24 09/13/24 History mg tablet (Adderall) testosterone cypionate 200 mg/mL 120 mg IM QWEEK 09/09/24 09/09/24 Unknown History intramuscular oil Exam Airway Mallampati Class: II TM Dist: >3cm Neck ROM: Full Assessment and Plan Assessment Anesthesia Assessment: Anesthesia Plan Discussed Final Anesthetic Review Family History of Problems with Anesthesia: No History of Problems with Anesthesia: No NPO: Yes ASA Class: II Final Preanesthetic Review: No Changes in Pt Med Stat, Meds/Allgs Chart Reviewed, Consent Obtained/Reviewed and Anes Risks/Benef Reviewed Patient Risk: Low Procedure Risk: Low Anesthetic Plan Anesthetic Plan: TIVA Disposition: Standard PACU
[2024-09-13 10:09] VITALS: BP 112/78; PULSE 73; RESP 12; TEMP 36.8; O2SAT 100; BMI 27.6
[2024-09-13] MEDS: Lactated Ringers 1,000 ML 100 ML IVCONT (10:22)
[2024-09-13 11:46] VITALS: BP 88/51; PULSE 78; RESP 16; TEMP 36.9; O2SAT 97
--- NOTE | 2024-09-13 11:51 | P.BOP_ITS ---
Brief Operative Note Date of Service: 09/13/24 Pre-op diagnosis: Screening Post-op diagnosis: other (Colon polyps) Procedure: Colonoscopy to the cecum with cold snare polypectomy and bx/removal of polyp Surgeon: Jesus Zamora MD Anesthesia: MAC Was an Flagstone Layer used for this Procedure?: No Estimated blood loss (mL): 2.0 Pathology: other (A. Ascending colon polyp B. Rectal polyp) Condition: stable Disposition: PACU
[2024-09-13 12:00] VITALS: BP 87/52; PULSE 63; RESP 16; O2SAT 99
[2024-09-13 12:15] VITALS: BP 112/67; PULSE 54; RESP 16; O2SAT 99
[2024-09-13 12:30] VITALS: BP 126/83; PULSE 59; RESP 16; TEMP 36.6; O2SAT 98
--- NOTE | 2024-09-13 13:12 | OP_ITS ---
DATE OF SERVICE: 09/13/2024 SURGEON: Jesus Zamora MD INDICATIONS: The patient presents for evaluation of colorectal cancer screening. Full consent was obtained from him for this, including risks of bleeding and perforation. PREOPERATIVE DIAGNOSIS: Colorectal cancer screening. POSTOPERATIVE DIAGNOSIS: PROCEDURE PERFORMED: Colonoscopy to the cecum with cold snare polypectomy and biopsy and removal of polyp. ESTIMATED BLOOD LOSS: COMPLICATIONS: ANESTHESIA: Monitored anesthesia care. ASSISTANTS: SPECIMENS: POSTOPERATIVE DIAGNOSES: Colorectal cancer screening, colon polyps, internal hemorrhoids. DESCRIPTION OF PROCEDURE: The patient was placed in left lateral decubitus position. The digital rectal exam revealed no abnormalities. The Olympus video pediatric colonoscope was entered into the rectum and advanced easily to the cecum. Once in the cecum, I did identify normal-appearing cecal pouch with appendiceal orifice and a normal-appearing ileocecal valve. The entire cecum and ileocecal valve appeared normal. The scope was slowly withdrawn assessing all mucosal surfaces carefully. Preparation was excellent. In the proximal ascending colon, there was an approximately 5 mm flat, but raised polyp, which was removed by cold snare polypectomy and recovered by suction. The polypectomy site appeared clean, without any sign of residual polyp nor significant bleeding. I did not visualize any sign of colitis nor angiodysplasia. In the rectum, seen best in the retroflexed position, was a 3 mm polyp, which was biopsied and completely removed with cold biopsy forceps. Internal hemorrhoids were noted as well. The scope was straightened and withdrawn from the patient. He tolerated the procedure well and was returned to recovery area in stable condition. IMPRESSION: 1. Colon polyps. 2. Internal hemorrhoids. PLAN: Results of the pathology will be checked. If either polyp is a tubular adenoma, I would recommend a followup colonoscopy in 5 years. If they are both hyperplastic, I would recommend a followup coloscopy in 10 years. MD VITALY Nova/LDL / [id number]
== END 2024-09-13 12:53 | disposition home or self-care (01) ==
PROVIDERS: Visit Provider Internal Medicine
PROC: 0DJD8ZZ Inspection of Lower Intestinal Tract, Via Natural or Artificial Opening Endoscopic (ICD-10-PCS; CPT 45378; principal; 2024-09-13 10:30)
DX: Z12.11 Encounter for screening for malignant neoplasm of colon (principal); D12.2 Benign neoplasm of ascending colon; K62.1 Rectal polyp; K64.8 Other hemorrhoids; F90.9 Attention-deficit hyperactivity disorder, unspecified type; Z79.899 Other long term (current) drug therapy
CPT/HCPCS: 45385; 45380; 88305; J2704